=== PATIENT | male | born 1945 | race Caucasian/White ===

== ENCOUNTER 2017-12-07 12:04 | Emergency (ER) | payer MEDICARE, SELFPAY ==
[2017-12-07 12:05] VITALS: BP 149/67; PULSE 57; RESP 16; TEMP 36.4; O2SAT 97; BMI 35.9
--- NOTE | 2017-12-07 12:20 | ED.DCSUM_ITS ---
- ER Visit Summary Date of Service: 12/07/17 Chief Complaint: Nosebleed History of Present Illness: The patient is a [address] Peña. He reports that he is on Coumadin for a heart murmur and that he had an INR 2 days ago that was 1.8. Reports that he has had nasal congestion and a nonproductive cough. States that at 1030 this morning he blew his nose and began having bleeding from the right side. He placed a piece of tissue in the right side of his nose and reports blood and then started to come from the left. He denies any recent injury. He reports that he is seen Dr. Nahid Villanueva her in the past for cauterization. Physical Examination: Vitals: Stable. Afebrile. General: Well-nourished and well-developed. Head: Normocephalic atraumatic. Nose: The packing the patient had placed was removed. There is no active bleeding. I am unable to visualize a source of the bleeding. He blew his nose. I am still unable to visualize the source and there is no active bleeding. Neck: Supple, no lymphadenopathy. No JVD. Nontender. Cardiovascular: Regular rate and rhythm. No murmurs. Respiratory: No respiratory distress. Clear to auscultation bilaterally. Abdominal: Soft, nontender, nondistended, normal bowel sounds. No guarding, rebound, or peritoneal signs. Back: Nontender. Extremities: Nontender, no edema. Skin: Normal color, no rash. Neurologic: Alert and oriented ?3. Cranial nerves II through XII are intact. Normal strength and sensation. Psych: Normal affect. Test Results: INR was 1.4. Emergency Department Course and Treatment: The patient blew his nose in the emergency department. He ambulated about in the emergency department there was no bleeding with either. I did offer to pack his nose as I cannot guarantee that it will not bleed again when he gets home. He does not want to have this done. Treatment Plan: He will be discharged instructions to follow-up with Dr. Ruiz in 3-5 days for repeat exam. Return to the emergency department for any worsening symptoms. Disposition: To home in improved and stable condition. Impression: 1. Epistaxis, resolved. 2. Coumadin coagulopathy. This note was generated with [employer] software. It may contain incorrect words, spelling, and punctuation that were not noted in review of the chart prior to signing ED Disposition - Plan for ED Patient: Disposition: Home or Assisted Living Chief Complaint: Nosebleed Instructions: Nosebleed Referrals: Nahid Villanueva MD [STAFF PHYSICIAN] - 3-5 Days
[2017-12-07] MEDS: Mixture 30 ML Bottle TOPICAL (12:32)
[2017-12-07 12:57] LABS: International Normalized Ratio 1.4; Prothrombin Time (Protime)PT. 17.5 SECONDS (11.7-14.9)
[2017-12-07 14:00] VITALS: BP 142/75; PULSE 84; RESP 16; O2SAT 98
[2017-12-07 14:36] VITALS: BP 112/62; PULSE 53; RESP 18; TEMP 36.4; O2SAT 99
== END 2017-12-07 14:37 | disposition home or self-care (01) ==
PROVIDERS: Emergency Provider Emergency Medicine; Family Provider Internal Medicine; PCP Internal Medicine
DX: R04.0 Epistaxis (principal); D68.9 Coagulation defect, unspecified; I10 Essential (primary) hypertension; E78.00 Pure hypercholesterolemia, unspecified; I25.10 Atherosclerotic heart disease of native coronary artery without angina pectoris; E11.9 Type 2 diabetes mellitus without complications; M10.9 Gout, unspecified; Z95.1 Presence of aortocoronary bypass graft; Z79.01 Long term (current) use of anticoagulants
CPT/HCPCS: 36415; 85610; 99282

== ENCOUNTER 2018-08-04 15:08 | Emergency (ER) | payer MEDICARE, SELFPAY ==
[2018-08-04 15:10] VITALS: BP 157/103; PULSE 70; RESP 16; TEMP 36.7; O2SAT 95; BMI 35.9
--- NOTE | 2018-08-04 15:27 | ED.RN ---
WHEN ASKED IN TRIAGE IF HE HAS HAD THOUGHTS OF HURTING SELF HE RESPONDED YES. WITH EVERYTHING THATS GOING ON WITH BEING SICK. THOUGHTS COME OFF AND ON. WHEN ASKED IF HE HAD A PLAN HE SAID NO, I WOUND JUST SHOOT MYSELF, BUT I DONT HAVE A GUN SO I CANT DO THAT. CONSULTED WITH CHARGE NURSE ISAAC AND PT PLACED ON SI PRECAUTIONS AT THIS TIME.
[2018-08-04] MEDS: Oxymetazoline 0.05% 1 SPRAY SPRAY.BTL NASAL (16:28)
--- NOTE | 2018-08-04 16:44 | ED.DCSUM_ITS ---
- ER Visit Summary Date of Service: 08/04/18 Chief Complaint: Nosebleed History of Present Illness: The patient is a 73 M with a right-sided nosebleed. This has been an ongoing issue. It has been cauterized 3 times by ENT. He was referred to the emergency department for continued oozing. He does take Co umadin. His INR has been 2.5. No other symptoms or complaints. Physical Examination: Afebrile and vital signs unremarkable except for a blood pressure of 157/103. Patient is alert and oriented. Smiling and appropriate. HEENT exam shows dried blood and post cautery changes in his right nostril on the septal side. Airway intact. Lungs clear. Heart regular. HEENT exam o therwise unremarkable. Test Results: None performed Emergency Department Course and Treatment: Lidocaine and Afrin were applied. A rapid Rhino was placed. Patient tolerated this well. No further bleeding. He was observed in the emergency department and is not having any complications or problems. He was referred to his ENT for follow-up within 24-72 hours. He is already on amoxicillin and will continue this medication. Return for any problems. Please note that the patient did have some depressive symptoms. He had been th inking of suicide in the recent past. He has no current suicidal thoughts or plan. I asked him about the nursing documentation, and he laughed. He said he should not have said anything. He says he was blowing things out of proportion. He is not suicidal. He does not have a plan or attempt. No prior attempts. No psychiatric diagnosis. No increased alcohol consumption. He does not have a gun in his home. His sad person score was 5. I advised him that he should return right away if he has any thoughts of suicide. Otherwise he should follow-up with his primary care doctor and/or counselor. Treatment Plan: As above Disposition: Discharged Impression: 1. Epistaxis anterior right side 2. Mood disorder This note was generated with [employer] dictation software. It may contain incorrect words, spelling, and punctuation that were not noted in review of the chart prior to signing ED Disposition - Plan for ED Patient: Chief Complaint: Nosebleed Referrals: Stuart Peña MD [Primary Care Provider] -
--- NOTE | 2018-08-04 16:45 | ED.DEP ---
ED Disposition - Plan for ED Patient: Chief Complaint: Nosebleed Instructions: Nosebleed Additional Instructions: follow up with your ear nose and throat doctor in 1-3 days
== END 2018-08-04 17:10 | disposition home or self-care (01) ==
LOC: ED 15:34
PROVIDERS: Emergency Provider Emergency Medicine; Family Provider Internal Medicine; PCP Internal Medicine
DX: R04.0 Epistaxis (principal); F39 Unspecified mood [affective] disorder; F32.9 Major depressive disorder, single episode, unspecified; E11.9 Type 2 diabetes mellitus without complications; I10 Essential (primary) hypertension; E78.00 Pure hypercholesterolemia, unspecified; Z79.01 Long term (current) use of anticoagulants; Z87.891 Personal history of nicotine dependence
CPT/HCPCS: 30901; 99282

== ENCOUNTER 2019-11-23 15:28 | Emergency (ER) | payer MEDICARE, SELFPAY ==
[2019-11-23 15:31] VITALS: BP 151/90; PULSE 58; RESP 18; TEMP 36.5; O2SAT 97; BMI 35.2
[2019-11-23 15:48] VITALS: BP 142/84; PULSE 55; RESP 16; O2SAT 98
--- NOTE | 2019-11-23 15:51 | CT_ITS ---
STUDY: CT ABDOMEN AND PELVIS WITHOUT CONTRAST REASON FOR EXAM: Male, 74 years old. Left flank pain x 3 days, hx kidney stones, hypertension, diabetes. RADIATION DOSAGE (If Supplied By Facility): CTDIvol = ( 14.74 ) mGy, DLP = ( 767.47 ) mGycm TECHNIQUE: Transaxial images were obtained from the dome of the diaphragm to the symphysis pubis without oral contrast, and without intravenous contrast. Sagittal and coronal images were reconstructed. Individualized dose optimization techniques were used for this CT. COMPARISON: 10/27/2013. FINDINGS: The visualized lung bases are unremarkable. The visualized portions of the heart are within normal limits. Normal liver. Normal gallbladder and extrahepatic biliary system. Normal spleen. There are pancreatic calcifications in the distribution of the ducts consistent with chronic pancreatitis. Normal bilateral adrenal glands. There are multiple bilateral nonobstructing renal calcifications. Some of these may be associated with the vasculature. There is no evidence for obstructive uropathy or distal urinary tract. Renal calcifications measure up to 7 mm largest. A hypodensity within the midpole of the medial left kidney may represent a cyst but is incompletely characterized. Normal visualized stomach. Normal small intestine. There are multiple colonic diverticula consistent with diverticulosis. The appendix is visualized and appears normal. There is extensive atherosclerosis and tortuosity of the visualized aorta and iliac vessels.. Normal inferior vena cava. Normal retroperitoneum. Normal urinary bladder. Normal visualized prostate gland. There is a small umbilical hernia containing fat. There are diffuse degenerative changes of the visualized lumbar spine. CT/Abdomen/Pelvis without Cont IMPRESSION: Renal stones as above without evidence for obstructive uropathy. Extensive diverticulosis. Pancreatic calcifications consistent with chronic pancreatitis. Electronically Signed: Robert Tariq, at 17:48 EST Tel , Service support ,
[2019-11-23] MEDS: Morphine 4 MG/ML Syringe IV (16:04)
[2019-11-23] MEDS: 0.9% Normal Saline 1,000 ML 150 ML IV (16:04)
[2019-11-23] MEDS: Ondansetron 4 MG/2 ML Vial IV (16:04)
[2019-11-23 16:05] LABS: Absolute Lymphocyte Count 1.11 X10^3/uL (0.83-4.51); Absolute Neutrophil Count 4.3 X10^3/uL (2.0-7.7); Basophil% 1.5 % (0-1); Eosinophil# 0.44 X10^3/uL; Eosinophils% 6.7 % (0-5); Hematocrit 44.3 % (40-54); Hemoglobin 14.5 g/dL (13.0-16.5); Lymphocyte # 1.11 X10^3/ul (4.0); Mean Corp Hgb Conc 32.7 g/dL (32-36); Mean Corpuscular Hgb 31.6 pg (27.0-32.0); Mean Corpuscular Volume 96.5 fL (80-94); Mean Platelet Vol. 9.2 fl (6.2-12.0); Monocyte# 0.55 X10^3/uL; Monocyte% 8.4 % (0-10); NRBC Flagged by Analyzer 0 % (0-5); Neutrophil # 4.33 X10^3/uL (2.7-7.7); Neutrophil % 66.2 % (47-70); Platelet Count 203 K/mm3 (150-450); RBC Distribution Width CV 14.3 % (11.6-14.6); RBC Distribution Width SD 50.9 fl (35.1-43.9); Red Blood Count 4.59 M/mm3 (4.6-6.2); White Blood Count 6.5 K/mm3 (4.4-11.0)
[2019-11-23 16:13] LABS: Prothrombin Time (Protime)PT. 39.5 SECONDS (11.7-14.9)
--- NOTE | 2019-11-23 16:21 | ED.VISSUMM ---
- ER Visit Summary Date of Service: 11/23/19 Chief Complaint: [Back pain] History of Present Illness: The patient is a 74 M [presents to the emergency department complaint of left sided back pain that he said for about 3 to 4 days. Patient describes a sharp stabbing pain that is worse with certain movements. He denies any pain rating down his legs. He denies any injury to his back. Patient has had history of kidney stones and he states that he feels similar to that. He denies urinary symptoms of frequency or hematuria. Patient rates his pain a 7 out of 10 currently. Patient states that he did fall 2 weeks ago and hurt his left hip and had discomfort for a while but took ibuprofen and that seems to of resolved. Patient is on Coumadin for history of A. fib. Patient also has had prior four-vessel CABG. Patient has history of diabetes, hypertension, and high cholesterol. Patient denies recent illness. He has had no fevers.] Physical Examination: [HEENT-PERRLA, EOMI. Cranial nerves II through XII grossly intact. TMs clear. Mucous membranes moist. No adenopathy. Cardiovascular-regular rate and rhythm without murmur or ectopy Lungs-clear to auscultation, chest wall stable without crepitus or subcu emphysema Abdomen-normoactive bowel sounds, soft, nontender, no rebound or rigidity, no peritoneal signs. Back exam-there is no ecchymosis or bruising noted. I am unable to reproduce his pain with palpation of his back. He has no tenderness over the thoracic or lumbar spine. He has some mild CVA tenderness on the left. Extremities-intact ?4, normal range of motion, normal pulses, atraumatic] Test Results: [CBC with differential obtained showed a white count of 6.5, hemoglobin 14, hematocrit 44, platelets 203. INR was 4.0.] Chemistries unremarkable. Urinalysis had red blood cells in it but no other signs of infection. CT scan of the abdomen pelvis without contrast showed stones in both kidneys but no urolithiasis. Otherwise nothing acute. Emergency Department Course and Treatment: [Patient was medicated with morphine and Zofran on arrival. Patient had good pain relief with that.] Treatment Plan: [Patient will be given a prescription for few [place] for pain. Patient advised to discontinue his Coumadin for the next 2 days and have a repeat INR in 2 days.] Disposition: [Discharged home in stable condition] Impression: [Back pain Coumadin coagulopathy] This note was generated with [employer] dictation software. It may contain incorrect words, spelling, and punctuation that were not noted in review of the chart prior to signing ED Disposition - Plan for ED Patient: Referrals: Stuart Peña MD [Primary Care Provider] -
[2019-11-23 16:28] LABS: Anion Gap 4 (5-15); BUN 27 mg/dL (7-18); BUN/Creat Ratio 17.8 RATIO (10-20); Calcium,Total 8.5 mg/dL (8.5-10.1); Chloride 110 mmol/L (98-107); Creatinine, Serum 1.52 mg/dL (0.70-1.30); EST Glomerular Filtration Rate 48 mL/min (>60); Est Glom Filt Rate - Afr Amer 58 mL/min (>60); Estimated Creatinine Clearance 44.69 ml/min; Glucose 94 mg/dL (74-106); Potassium 4.7 mmol/L (3.5-5.1); Sodium Level 141 mmol/L (136-145)
[2019-11-23 16:59] VITALS: PULSE 54; RESP 16; O2SAT 88
[2019-11-23 17:38] LABS: Mucous, Urine 0 SEEN /hpf (<or=2+)
[2019-11-23 17:43] LABS: Color, Urine Amber (Yellow); Glucose, Dipstick Normal (Normal); Ketone-Dipstick Negative (Negative); Leukocyte Esterase-Dipstick 100 /ul (Negative); Nitrite-Dipstick Negative (Negative); Occult Blood-Urine 250 /ul (Negative); Protein-Dipstick 30 mg/dl (Negative); Urine Bilirubin Dipstick Negative (Negative); Urine Clarity Sl. Cloudy (Clear); Urine Urobilinogen Normal (Normal)
[2019-11-23 17:58] LABS: Amorphous Sediment 1+; Bacteria 1+ /hpf (None Seen); Red Blood Cells-Urine 50-100 SEEN /hpf (0-5); Squamous Epithelial Cells - UA 0-5 SEEN /hpf (0-5); White Blood Cells 5-10 SEEN /hpf (0-5)
--- NOTE | 2019-11-23 18:39 | ED.DEP ---
ED Disposition - Plan for ED Patient: Instructions: BACK PAIN (Acute or Chronic) Prescriptions: Hydrocodone Bitart/Apap 5-325 [Hammond 5MG-325MG] 1 tab PO Q4H PRN PRN 2 Days #10 tab PRN Reason: Pain Transmission Status: Received by [id number] Referrals: Stuart Peña MD [Primary Care Provider] - 3-5 Days Additional Instructions: STOP Coumadin for next 2 days and have a repeat level check of INR in 2 days
[2019-11-23 19:01] VITALS: BP 135/77; PULSE 72; RESP 16; O2SAT 99
== END 2019-11-23 19:02 | disposition home or self-care (01) ==
LOC: ED 16:05
PROVIDERS: Emergency Provider Emergency Medicine; PCP Internal Medicine
DX: N20.0 Calculus of kidney (principal); I48.91 Unspecified atrial fibrillation; I25.10 Atherosclerotic heart disease of native coronary artery without angina pectoris; I10 Essential (primary) hypertension; E11.9 Type 2 diabetes mellitus without complications; E78.00 Pure hypercholesterolemia, unspecified; Z87.442 Personal history of urinary calculi; Z95.1 Presence of aortocoronary bypass graft; Z79.84 Long term (current) use of oral hypoglycemic drugs; Z79.01 Long term (current) use of anticoagulants; Z79.82 Long term (current) use of aspirin
CPT/HCPCS: 74176; 80048; 81001; 85025; 85610; 96361; 96374; 96375; 99283; J7030; J2405

== ENCOUNTER 2020-08-23 11:06 | Emergency (ER) | payer MEDICARE, SELFPAY ==
[2020-08-23 11:06] VITALS: BP 134/81; PULSE 57; RESP 16; TEMP 36.3; O2SAT 97; BMI 30.8
--- NOTE | 2020-08-23 11:49 | EKG12_ITS ---
Test Reason : Blood Pressure : / mmHG Vent. Rate : 053 BPM Atrial Rate : 053 BPM P-R Int : 224 ms QRS Dur : 146 ms QT Int : 466 ms P-R-T Axes : 000 -69 026 degrees QTc Int : 437 ms Sinus bradycardia with 1st degree A-V block Left axis deviation Right bundle branch block Abnormal ECG Confirmed by LEAH PAGE, KRISTEL ([id number]), photograph editor SAHRA NEWTON ([id number]) on 08/28/2020 9:17:57 A M Referred By: ISRAEL Confirmed By:YAHIR LYNN MD
--- NOTE | 2020-08-23 11:50 | CT_ITS ---
STUDY: CT BRAIN WITHOUT CONTRAST REASON FOR EXAM: Male, 75 years old. RECURRENT FALLS, OFF BALANCE RADIATION DOSAGE (If Supplied By Facility): CTDIvol = ( 44.99 ) mGy, DLP = ( 779.24 ) mGycm TECHNIQUE: Transaxial CT imaging of the brain was performed without administration of intravenous contrast material. Individualized dose optimization techniques were used for this CT. COMPARISON: No relevant priors. FINDINGS: Normal soft tissue structures. Normal calvarium. There is mild cerebral atrophy with widening of the extra-axial spaces and ventricular dilatation. Focal encephalomalacia in the left posterior frontal parietal lobe. Normal basal ganglia and thalami. Normal brainstem. Normal cerebellum. There is no intracranial hemorrhage. There are no findings of an acute ischemic infarction. Atherosclerotic calcification of the cavernous portions of the internal carotid arteries bilaterally. Normal visualized paranasal sinuses. CT/Brain/Head without Contrast IMPRESSION: Chronic involutional changes of the brain. 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 Electronically Signed: Germain Rodriguez, at 13:04 EST , Service support ,
--- NOTE | 2020-08-23 11:53 | ED.DCSUM_ITS ---
History of Present Illness Chief Complaint: Fall Informant: Patient Narrative: Patient is a 75-year-old male with a past medical history of CAD with bypass, COPD, A. fib on Coumadin who presents to the emergency department for off- balance sensation. This is been going on for the past 2 days. He has had similar episodes like this before in the past. Typically drinks a bunch of water and then feels better. Yesterday he drank 8 bottles of water and is still feeling the same way. He did have a fall yesterday. Denies hitting his head or losing consciousness. No injury with the fall. He does feel lightheaded when moving from a sitting to standing position occasionally. He has been having an intermittent headache over the past 2 to 3 months in the occipital region. He is currently denying this. No vision changes. No weakness or loss of sensation in any extremity. Has any chest pain, shortness of breath or palpitations. No abdominal pain or nausea/vomiting. No diarrhea. He was recently treated for urinary tract infection but is no longer having any symptoms. Past Medical History - Allergies and Home Meds Allergies/Adverse Reactions: Allergies No Known Allergies Allergy (Verified 08/23/20 11:06) Primary Care Physician: Stuart Peña MD [Primary Care Provider] - 2 Days Prior records reviewed: Yes Surgical History: coronary bypass surgery Smoking Status: Former smoker Review of Systems All systems negative except as indicated General: Denies: Chills, Fever, Sweats Eyes: Denies: Visual changes - bilaterally, Diplopia ENT: Denies: Rhinorrhea, Sore throat Cardiovascular: Denies: Chest pain, Palpitations Respiratory: Denies: Dyspnea, Cough, Dyspnea on exertion Gastrointestinal: Denies: Abdominal pain, Nausea, Vomiting, Diarrhea Genitourinary: Denies: Dysuria, Hematuria, Frequency Musculoskeletal: Denies: Back pain, Extremity Pain Skin: Denies: Rash, Wounds Neurological: Reports: - - Lightheaded, off-balance. Denies: Headache, Weakness, Numbness Physical Exam Vital Signs/Narrative: Vital Signs Temp Pulse Resp BP Pulse Ox 08/23/20 11:06 97.3 F L 57 L 16 134/81 H 97 Inital Vital Signs reviewed: Yes General: Well nourished, Well developed, No Acute Distress Head: Normocephalic, Atraumatic Eyes: Perrl, EOMI ENT: Moist mucous membranes, No rhinorrhea Neck: Supple, Nontender Cardiovascular: Regular rate, Regular rhythm, No murmurs Respiratory: No distress, CTA bilaterally, Chest nontender Abdomen: Soft, Nontender, Nondistended, Normal bowel sounds Back: Nontender, Normal Inspection Extremities: Nontender, No edema. Negative for: Calf Tenderness Skin: Normal color, No rash Neurological: Alert, Oriented x3, Cranial nerves II-XII grossly intact, Normal Strength, Normal Sensation Psychological: Normal affect, Normal Mood Diagnostic/Tx/Re-eval Chest X-Ray - ED: - - Single view chest x-ray did not reveal any evidence of consolidation. Normal cardiac silhouette. Previous CABG. Agree with radiologist. - EKG Initial EKG Interpretation: - - Rate of 53 bpm and a sinus bradycardia. He has a prolonged MO interval of 224 with first-degree AV block. QRS of 146 with right bundle br anch block. He has left axis deviation. No significant ST elevations or depressions otherwise. No previous EKG for comparison. - Medical Decision Making Patient presents to the emergency department for off-balance sensation and falling. Upon arrival to the emergency department vital signs within normal limits. He does not appear in any acute distress. He has no focal deficits on physical exam. Will check basic lab work and CT scan of the head. 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 No acute intracranial abnormality. Patient symptoms are only when ambulating and does not occur every time. I do not believe that this is a posterior stroke causing the symptoms given the fact he has no symptoms while at rest. The rest of his lab work did not reveal any significant acute abnormality. Patient did ambulate around the emergency department. I discussed obtaining a MRI to evaluate for posterior circulation stroke although this is less likely. Patient does want to be discharged home. We will call his PCP in the morning to be reevaluated. If he develops any worsening symptoms he is to return to the emergency department. He understands and is agreeable this plan. Discharged home in stable condition. All questions answered. ED Disposition - Plan for ED Patient: Disposition: Home or Assisted Living Diagnosis: Imbalance, Fall Instructions: ED Fall Dizziness Weakn Balance Referrals: Stuart Peña MD [Primary Care Provider] - 2 Days
[2020-08-23 12:09] VITALS: PULSE 54; RESP 16; O2SAT 96
[2020-08-23 12:21] LABS: Absolute Lymphocyte Count 0.86 X10^3/uL (0.83-4.51); Absolute Neutrophil Count 4.5 X10^3/uL (2.0-7.7); Basophil# 0.09 X10^3/uL; Basophil% 1.5 % (0-1); Eosinophil# 0.22 X10^3/uL; Eosinophils% 3.7 % (0-5); Lymphocyte # 0.86 X10^3/ul (4.0); Lymphocyte % 14.3 % (19-41); Mean Corp Hgb Conc 33.3 g/dL (32-36); Mean Corpuscular Hgb 31.8 pg (27.0-32.0); Mean Corpuscular Volume 95.5 fL (80-94); Mean Platelet Vol. 9.8 fl (6.2-12.0); Monocyte# 0.39 X10^3/uL; Monocyte% 6.5 % (0-10); NRBC Flagged by Analyzer 0 % (0-5); Neutrophil # 4.45 X10^3/uL (2.7-7.7); Neutrophil % 73.8 % (47-70); Platelet Count 199 K/mm3 (150-450); RBC Distribution Width CV 14.5 % (11.6-14.6); RBC Distribution Width SD 50.9 fl (35.1-43.9); Red Blood Count 4.71 M/mm3 (4.6-6.2)
[2020-08-23 12:33] LABS: International Normalized Ratio 2.4; Prothrombin Time (Protime)PT. 25.6 SECONDS (11.7-14.9)
[2020-08-23 12:36] LABS: Anion Gap 2 (5-15); BUN 15 mg/dL (7-18); BUN/Creat Ratio 12.8 RATIO (10-20); Calcium,Total 8.4 mg/dL (8.5-10.1); Chloride 108 mmol/L (98-107); Creatinine, Serum 1.17 mg/dL (0.70-1.30); EST Glomerular Filtration Rate 65 mL/min (>60); Est Glom Filt Rate - Afr Amer 78 mL/min (>60); Estimated Creatinine Clearance 57.19 ml/min; Glucose 120 mg/dL (74-106); Magnesium 1.8 mg/dL (1.6-2.6); Potassium 4.1 mmol/L (3.5-5.1); Sodium Level 138 mmol/L (136-145)
--- NOTE | 2020-08-23 13:00 | RAD_ITS ---
STUDY: X-RAY CHEST REASON FOR EXAM: Male, 75 years old. Pt states being unbalanced x 2 days, fell yesterday, weakness TECHNIQUE: Single AP portable view of the chest. COMPARISON: None. FINDINGS: EKG electrodes are seen. Minimal increased linear markings at the left lung base suggestive of left basilar atelectasis and/or scarring. There is no demonstrated pleural abnormality. Sternal cerclage wires and vascular clips are present from a prior sternotomy and coronary artery bypass graft procedure (CABG). Normal mediastinum and zach. Normal visualized pulmonary arteries. Normal visualized aortic arch and descending thoracic aorta. Normal visualized thoracic spine. Normal visualized ribs, clavicles, and shoulders. There is no demonstrated abnormality of the visualized soft tissue structures of the upper abdomen. RAD/Chest 1 View (Portable) IMPRESSION: Prior CABG. Mild increased linear markings at the left lung base suggestive of linear atelectasis and/or linear scarring. Electronically Signed: Germain Rodriguez, at 13:23 EST , Service support ,
[2020-08-23 13:50] VITALS: BP 113/70; BP 113/76; BP 114/90; PULSE 54; PULSE 67; PULSE 68
[2020-08-23 14:00] VITALS: BP 104/71; PULSE 53; RESP 10; O2SAT 96
[2020-08-23 14:29] VITALS: BP 104/71; PULSE 61; RESP 18; O2SAT 97
== END 2020-08-23 14:45 | disposition home or self-care (01) ==
PROVIDERS: Emergency Provider Emergency Medicine; PCP Internal Medicine
DX: R26.89 Other abnormalities of gait and mobility (principal); R29.6 Repeated falls; I25.10 Atherosclerotic heart disease of native coronary artery without angina pectoris; I44.0 Atrioventricular block, first degree; I45.10 Unspecified right bundle-branch block; I48.91 Unspecified atrial fibrillation; J44.9 Chronic obstructive pulmonary disease, unspecified; Z79.01 Long term (current) use of anticoagulants; Z95.1 Presence of aortocoronary bypass graft; Z87.440 Personal history of urinary (tract) infections
CPT/HCPCS: 70450; 71045; 80048; 83735; 84484; 85025; 85610; 93005; 99285; A4216

== ENCOUNTER 2020-12-04 10:43 | Outpatient (RCR) | payer MEDICARE, SELFPAY | END 2020-12-04 23:59 | LOC: IMMUN 10:43 | PROVIDERS: PCP Internal Medicine; Visit Provider Family Medicine | DX: Z23 Encounter for immunization (principal) | CPT/HCPCS: 0011A; 0012A ==

== ENCOUNTER 2023-02-12 03:52 | Emergency (ER) | payer MEDICARE, SELFPAY ==
[2023-02-12 03:52] VITALS: BP 101/70; PULSE 83; RESP 35; O2SAT 94
[2023-02-12 03:53] VITALS: BP 129/91; PULSE 68; RESP 16; TEMP 35.9; O2SAT 98; BMI 29.7
--- NOTE | 2023-02-12 04:09 | CT_ITS ---
EXAM: CT ANGIOGRAPHY CHEST, ABDOMEN AND PELVIS WITH INTRAVENOUS CONTRAST CLINICAL INDICATION: None provided. pain ? Dissection TECHNIQUE: Helically acquired angiography images were obtained of the chest, abdomen and pelvis with intravenous contrast. CTDIvol = ( 13.87 ) mGy, DLP = ( 1217.31 ) mGycm This CT exam was performed using one or more of the following dose reduction techniques: automated exposure control, adjustment of the mA and/or kV according to patient size, and/or use of iterative reconstruction technique. MIP reconstructed images were created and reviewed. CONTRAST: IV 100mL [id number] COMPARISON: November 23, 2019 CT. FINDINGS: VASCULATURE: AORTA: No acute findings. Normal in caliber. No dissection. PULMONARY ARTERIES: Unremarkable. Normal in caliber. No obvious central pulmonary embolism although this study was not performed with the pulmonary embolism protocol. No PE. GREAT VESSELS OF AORTIC ARCH: Unremarkable. Normal in caliber. No dissection. CELIAC TRUNK AND MESENTERIC ARTERIES: No acute findings. No occlusion or significant stenosis. No dissection. RENAL ARTERIES: No acute findings. No occlusion or significant stenosis. No dissection. ILIAC ARTERIES: No acute findings. No occlusion or significant stenosis. No dissection. CHEST: LUNGS AND PLEURAL SPACES: See below. HEART: No aneurysm or dissection. Multivessel calcific coronary arteriolosclerosis status post CABG. Heart size is normal. No pericardial effusion. MEDIASTINUM: Unremarkable. No mediastinal or hilar adenopathy. Esophagus is unremarkable. No hiatal hernia. No other cardiomediastinal or hilar abnormalities. THYROID: Unremarkable. No thyroid lesions. ABDOMEN: LIVER: See below. GALLBLADDER AND BILE DUCTS: Somewhat contracted gallbladder. No calcified gallstones. No gallbladder distention or wall edema. No intra- or extrahepatic biliary ductal dilation. PANCREAS: Calcifications of the pancreas suggest chronic pancreatitis. Dilatation of main pancreatic duct with no definite pancreatic head mass. SPLEEN: Unremarkable. Normal size without focal cystic or solid mass. ADRENALS: Unremarkable. No nodules. KIDNEYS AND URETERS: Multiple right and left renal calyceal calculi which are nonobstructing, largest at the lower pole level posteriorly measuring up to 1.2 cm. Left renal small cysts. No other abnormalities. STOMACH AND BOWEL: Duodenal wall thickening and distal stomach wall thickening with adjacent inflammation. Midline epigastric region abdominal wall hernia containing pneumoperitoneum without bowel herniation. PELVIS: APPENDIX: No evidence of acute appendicitis. BLADDER: Bladder is unremarkable although decompressed in appearance. REPRODUCTIVE: Unremarkable as visualized. No mass. CHEST, ABDOMEN and PELVIS: INTRAPERITONEAL SPACE: Pneumoperitoneum anteriorly. Small volume perihepatic ascites at the right lateral aspect. No free air or free fluid. No aortic aneurysm. BONES/JOINTS: Degenerative changes of the spine and pelvis. No suspicious lytic or blastic abnormality. SOFT TISSUES: Small fat-containing bilateral inguinal hernias containing fat. Moderate anasarca. LYMPH NODES: Unremarkable. No enlarged lymph nodes. CT/CTA Chst, Abd, Pel W and/or WO IMPRESSION: 1. Pneumoperitoneum. This is concerning for viscus rupture such as can be seen with peptic ulcer disease, gastritis or duodenitis as there is inflammation and wall thickening in these areas. 2. No PE, aortic dissection or pneumonia. Dr. Bill Farfan was notified at 1:50 AM [place] time on 02/12/2023. N.B. : The above Results were Read Back by Bill Olivera MD to Bill Farfan DO, and understanding confirmed on 02/12/2023 04:49:39 (ET). Electronically Signed: Bill Olivera MD at 4:54 EDT ,
--- NOTE | 2023-02-12 04:11 | EKG12_ITS ---
Test Reason : ABD PAIN Blood Pressure : / mmHG Vent. Rate : 067 BPM Atrial Rate : 066 BPM P-R Int : 000 ms QRS Dur : 150 ms QT Int : 446 ms P-R-T Axes : 000 -75 031 degrees QTc Int : 471 ms Sinus rhythm Right bundle branch block Left anterior fascicular block Bifascicular block Abnormal ECG Confirmed by LEAH PAGE, KRISTEL ([id number]), editor dictionary SAHRA NEWTON ([id number]) on 02/12/2023 1:01:06 PM Referred By: INEZ Confirmed By:YAHIR LYNN MD
[2023-02-12 04:19] LABS: Absolute Neutrophil Count 6.8 X10^3/uL (2.0-7.7); Basophil# 0.08 X10^3/uL; Basophil% 0.9 % (0-1); Eosinophil# 0.58 X10^3/uL; Eosinophils% 6.5 % (0-5); Hematocrit 46.2 % (40-54); Hemoglobin 14.9 g/dL (13.0-16.5); Lymphocyte % 12.2 % (19-41); Mean Corp Hgb Conc 32.3 g/dL (32-36); Mean Corpuscular Hgb 31.4 pg (27.0-32.0); Mean Corpuscular Volume 97.3 fL (80-94); Mean Platelet Vol. 9.6 fl (6.2-12.0); Monocyte# 0.44 X10^3/uL; Monocyte% 4.9 % (0-10); NRBC Flagged by Analyzer 0 % (0-5); Neutrophil # 6.75 X10^3/uL (2.7-7.7); Neutrophil % 75.1 % (47-70); Platelet Count 327 K/mm3 (150-450); RBC Distribution Width SD 50.5 fl (35.1-43.9); Red Blood Count 4.75 M/mm3 (4.6-6.2)
[2023-02-12 04:28] LABS: Prothrombin Time (Protime)PT. 13.1 SECONDS (11.7-14.9)
[2023-02-12 04:32] VITALS: BP 117/82; PULSE 79; RESP 38; O2SAT 94
[2023-02-12 04:38] LABS: AST(SGOT) 24 U/L (15-37); Alanine Aminotransfer ALT/SGPT 30 U/L (16-61); Alkaline Phosphatase 64 U/L (45-117); Anion Gap 9 (5-15); BUN 18 mg/dL (7-18); BUN/Creat Ratio 14.1 RATIO (10-20); Bilirubin, Direct 0.22 mg/dL (0.00-0.30); Calcium,Total 8.9 mg/dL (8.5-10.1); Chloride 108 mmol/L (98-107); Creatinine, Serum 1.28 mg/dL (0.70-1.30); EST Glomerular Filtration Rate 58 mL/min (>60); Est Glom Filt Rate - Afr Amer 70 mL/min (>60); Globulin 4.2 g/dL (2.2-4.2); Glucose 59 mg/dL (74-106); Lipase 17 U/L (13-75); Magnesium 1.6 mg/dL (1.6-2.6); Potassium 3.8 mmol/L (3.5-5.1); Protein, Total 7.2 g/dL (6.4-8.2); Sodium Level 140 mmol/L (136-145); Troponin-I HS 9 pg/mL (3.0-78.0)
[2023-02-12] MEDS: 0.9% Normal Saline 1,000 ML 999 ML IV (04:42)
[2023-02-12] MEDS: Ondansetron 4 MG/2 ML Vial IV (04:42)
[2023-02-12] MEDS: fentaNYL 100 MCG/2 ML Ampul 50 MCG IV (04:44)
[2023-02-12] MEDS: HYDROmorphone 1 MG/ML Syringe IV (05:28)
--- NOTE | 2023-02-12 05:30 | ED.RN ---
Addendum entered by Audelia Mackenzie 02/12/23 06:29: [facility] HAS ACCEPTED FOR SURGERY. ETA [facility] 0630. Original Note: [facility] TRANSFER HAS AN EXTENSIVE WAIT FOR MAIN, 2-3 DAYS WAIT FOR REGIONAL FACILITIES. [facility] HAS NO SURGICAL BEDS. [facility] ONLY ACCEPTING TRAUMA, STROKES AND STEMIS. CALLED , WAITING FOR A CALLBACK.
--- NOTE | 2023-02-12 05:43 | RAD_ITS ---
INDICATION: NG tube placement -- KUB with both diaphragms for NG/OG Verification EXAMINATION/TECHNIQUE: X-RAY - XR Abdomen 1 View COMPARISON: FINDINGS: NG tube is seen its tip is within the gastric lumen. BOWEL GAS PATTERN: Non-obstructive. No bowel or stomach distention. FREE AIR: Not assessed on a single supine view. ORGANOMEGALY: Not seen. CALCIFICATIONS: No abnormal calcifications observed. LOWER CHEST: No acute pathology. BONES AND SOFT TISSUES: No acute pathology. RAD/Abdomen Single View (Portable) IMPRESSION: Non-obstructive bowel gas pattern. Electronically Signed: Vivian Barcenas MD at 6:37 EDT ,
--- NOTE | 2023-02-12 05:48 | EX.ED.DYSGE1 ---
HPI History of Present Illness Chief Complaint: Abd Pain Narrative Narrative: Patient is a 77-year-old male from home with past medical history of hypertension hyperlipidemia gout CAD and CHF/peripheral edema who states that he was sitting around watching TV roughly 1 hour prior to arrival when he got sudden onset midepigastric abdominal pain. He states has been no trauma or recent excessive activity. He denies any history of kidney stones. He reports the pain is severe and he cannot get comfortable and secondary to the persistent nature of the pain comes in for evaluation [facility] Home Medications allopurinol 100 mg tablet 200 mg PO DAILYCM 10/27/13 [History Last Taken 11/23/19] aspirin 81 mg chewable tablet 81 mg PO DAILY 10/27/13 [History Last Taken 11/23/19] atenolol 25 mg tablet 50 mg PO DAILY 10/27/13 [History Last Taken 11/23/19] fish oil-dha-epa 1,200 mg-144 mg-216 mg capsule 1,200 ea PO BID 10/27/13 [History Last Taken 11/23/19] metformin 850 mg tablet 1,000 mg PO BIDCM 10/27/13 [History Last Taken 11/23/19] simvastatin 20 mg tablet 40 mg PO QHS 10/27/13 [History Last Taken Unknown] fluticasone furoate 100 mcg-vilanterol 25 mcg/dose inhalation powder 1 puff IH DAILY 11/23/19 [History Last Taken 11/23/19] lisinopril 2.5 mg tablet 2.5 mg PO DAILY 11/23/19 [History Last Taken 11/23/19] glimepiride 2 mg tablet 2 mg PO DAILY 08/23/20 [History Last Taken Unknown] Allergy/AdvReac Type Severity Reaction Status Date / Time No Known Allergies Allergy Verified 08/23/20 11:06 Social History Smoking Status: Unknown if ever smoked ROS ROS ED Constitutional Constitutional ED: Denies chills or fever(s) ENT ENT ED: Denies sore throat Cardiovascular Cardiovascular: Reports chest pain Respiratory/Chest Respiratory/Chest: Denies cough or dyspnea Gastrointestinal Gastrointestinal: Reports abdominal pain and nausea; Denies diarrhea or vomiting Genitourinary Genitourinary ED: Denies dysuria Musculoskeletal Musculoskeletal: Denies back pain or myalgias Integumentary Denies rash Neurologic Neurologic: Denies headache(s) Hematologic/Lymphatic Hematologic/Lymphatic: Reports easy bleeding and easy bruising EXAM Physical Exam Const Vital Signs: 02/12/23 03:53 02/12/23 03:52 02/12/23 04:32 Temperature 96.7 F L Temperature Source Temporal Pulse Rate 68 83 79 Respiratory Rate 16 35 H 38 H Respiratory Effort Blood Pressure 129/91 H 101/70 117/82 H Blood Pressure Mean 103 80 93 Pulse Ox 98 94 94 Oxygen Delivery Method Room Air Room Air Room Air 02/12/23 04:34 Temperature Temperature Source Pulse Rate Respiratory Rate Respiratory Effort Labored Accessory Muscle Use Blood Pressure Blood Pressure Mean Pulse Ox Oxygen Delivery Method Positive well nourished, well developed and obese General Appearance ED: well developed Nutritional Appearance: obese HEENT Reports moist mucous membranes Eyes PERRL and EOMs intact bilaterally Neck supple Chest Wall palpation of chest normal Resp clear to auscultation bilaterally Resp Narrative: Patient is tachypneic with diminished breath sounds throughout but overall clear to auscultation Cardio regular rate and regular rhythm Rate: other Other Details: Radial pulses are plus 2 out of 4 bilaterally are equal and symmetric GI non-distended GI Narrative: Patient has a reducible ventral hernia present but there is pain with palpation and guarding at the site. No rigidity or tympany noted Auscultation: normoactive bowel sounds Palpation: soft Back/Spine no CVA tenderness Extremity Extremity Narrative: +3 pitting edema to the bilateral lower extremities that is equal and symmetric Neuro oriented x3 and CN's II-XII intact bilaterally Sensorium / Orientation: alert Psych Psych Narrative: Patient has a flat affect Skin Skin Narrative: Chronic stasis changes of the bilateral lower legs MDM MDM MDM Narrative Medical decision making narrative: Patient presented to the ER afebrile but reported sudden onset severe pain which is now beginning to radiate. He appeared pale and ashen and with the sudden onset of pain and now the radiation there is concern for dissection versus kidney stone versus perforated viscus or acute pancreatitis so basic labs and a CTA were ordered. Labs revealed no clinically significant findings but CTA showed free air consistent with a perforated viscus. Secondary to this the patient was started on Zosyn and Diflucan and Protonix. The case was discussed with general surgery/Dr. Dennis who feel that the patient needs to go to a higher level of care based on his chronic medical conditions and location of the perforation. Secondary to this was contacted and he was accepted at [facility] by Dr. Rivas. He requested NG tube be placed prior to transport and does agree to accept the patient for surgical intervention at this time. The plan of care was discussed with the patient and he is agreeable to it History & Record Review Discussion w/independent historian: EMS personnel and Patient Lab Data Attestation: I reviewed the patient's lab results. Labs: Laboratory Results - last 24 hr 02/12/23 02/12/23 02/12/23 04:15 04:15 04:15 WBC 9.0 RBC 4.75 Hgb 14.9 Hct 46.2 MCV 97.3 H MCH 31.4 MCHC 32.3 RDW Std Deviation 50.5 H RDW Coeff of Elida 14.0 Plt Count 327 MPV 9.6 Immature Gran % (Auto) 0.400 Neut % (Auto) 75.1 H Lymph % (Auto) 12.2 L [place] % (Auto) 4.9 Eos % (Auto) 6.5 H Baso % (Auto) 0.9 Absolute Neuts (auto) 6.8 Absolute Lymphs (auto) 1.10 Nucleated RBC % 0 PT 13.1 INR 1.0 APTT 27.0 Sodium 140 Potassium 3.8 Chloride 108 H Carbon Dioxide 23.0 Anion Gap 9 BUN 18 Creatinine 1.28 Estim Creat Clear Calc 49.10 Est GFR (MDRD) Af Amer 70 Est GFR (MDRD) Non-Af 58 L BUN/Creatinine Ratio 14.1 Glucose 59 L Calcium 8.9 Magnesium 1.6 Total Bilirubin 0.50 Direct Bilirubin 0.22 AST 24 ALT 30 Alkaline Phosphatase 64 Troponin I High Sens 9 Total Protein 7.2 Albumin 3.0 L Globulin 4.2 Lipase 17 Radiography Diagnostic Testing: Clinical Impression(s) from Imaging Studies Chest/Abdomen/Pelvis CTA 02/12/23 04:09 IMPRESSION: 1. Pneumoperitoneum. This is concerning for viscus rupture such as can be seen with peptic ulcer disease, gastritis or duodenitis as there is inflammation and wall thickening in these areas. 2. No PE, aortic dissection or pneumonia. Dr. Bill Farfan was notified at 1:50 AM [place] time on 02/12/2023. N.B. : The above Results were Read Back by Bill Olivera MD to Bill Farfan DO, and understanding confirmed on 02/12/2023 04:49:39 (ET). Electronically Signed: Bill Olivera MD at 4:54 EDT , ADDENDUM: 02/12/23 0501 IMPRESSION: 1. Pneumoperitoneum. This is concerning for viscus rupture such as can be seen with peptic ulcer disease, gastritis or duodenitis as there is inflammation and wall thickening in these areas. 2. No PE, aortic dissection or pneumonia. Dr. Bill Farfan was notified at 1:50 AM [place] time on 02/12/2023. N.B. : The above Results were Read Back by Bill Olivera MD to Bill Farfan DO, and understanding confirmed on 02/12/2023 04:49:39 (ET). Electronically Signed: Bill Olivera MD at 4:54 EDT , KUB as interpreted by the emergency medicine physician reveals the NG tube to be in proper position nonspecific nonobstructive bowel gas pattern Management Discussion w/another healthcare provider: [employer] Discharge Plan Triage Chief Complaint: Abd Pain ED Provider: Bill Farfan Dx/Rx/DC Orders Clinical Impression: Perforated duodenal ulcer, Hyperlipidemia, CAD (coronary artery disease) Prescriptions: No Action metformin 850 MG tablet 1,000 mg PO BIDCM atenolol 25 MG tablet 50 mg PO DAILY allopurinol 100 MG tablet 200 mg PO DAILYCM simvastatin 20 MG tablet 40 mg PO QHS aspirin 81 MG tablet,chewable 81 mg PO DAILY fish oil-dha-epa 1 EACH capsule 1,200 ea PO BID lisinopril 2.5 MG tablet 2.5 mg PO DAILY fluticasone furoate-vilanterol 100-25 mcg/dose blister with device 1 puff IH DAILY PRN (Reason: nasel congeestion) glimepiride 2 MG tablet 3 mg PO DAILY Primary Care Provider: Stuart ePña Referrals: Stuart Peña MD [Primary Care Provider] - Disposition Disposition: Acute Care Hospital Discharge Location: [facility]
[2023-02-12] MEDS: Oxymetazoline 0.05% 1 SPRAY SPRAY.BTL 2 SPRAY NASAL (06:10)
[2023-02-12 06:33] VITALS: BP 98/60; BP 99/54; PULSE 70; PULSE 72; RESP 22; RESP 25; O2SAT 93; O2SAT 96
[2023-02-12] MEDS: HYDROmorphone 0.5 MG/0.5 ML SYRINGE IV (06:48)
== END 2023-02-12 07:06 | disposition short-term general hospital (02) ==
PROVIDERS: Emergency Provider Emergency Medicine; PCP Internal Medicine; Visit Provider Emergency Medicine
DX: K26.5 Chronic or unspecified duodenal ulcer with perforation (principal); I25.10 Atherosclerotic heart disease of native coronary artery without angina pectoris; R10.13 Epigastric pain; E78.5 Hyperlipidemia, unspecified; Z79.82 Long term (current) use of aspirin; E66.9 Obesity, unspecified; I10 Essential (primary) hypertension; M10.9 Gout, unspecified
CPT/HCPCS: 71275; 74018; 74174; 80048; 80076; 83690; 83735; 84484; 85025; 85610; 85730; 87811; 93005; 99285; J7030; Q9967; A4216; J2405; J3490

== ENCOUNTER 2024-09-17 13:46 | Inpatient (IN) | payer MEDICARE, SELFPAY ==
[2024-09-17] VITALS (20 sets, daily range): BP systolic 79–112; BP diastolic 55–75; PULSE 59–89; RESP 10–22; TEMP 35.6–36.5; O2SAT 90–98; BMI 29.9; BMI 27.6
--- NOTE | 2024-09-17 14:03 | EKG12_ITS ---
Test Reason : WEAKNESS Blood Pressure : */* mmHG Vent. Rate : 62 BPM Atrial Rate : 62 BPM P-R Int : 154 ms QRS Dur : 146 ms QT Int : 448 ms P-R-T Axes : -59 -34 41 degrees QTcB Int : 454 ms Unusual P axis, possible ectopic atrial rhythm Left axis deviation Right bundle branch block Abnormal ECG Confirmed by LEAH PAGE, KRISTEL ([id number]), art editor SAHRA NEWTON ([id number]) on 09/22/2024 1:33:11 P M Referred By: Brandyn La Confirmed By: KRISTEL LYNN MD
--- NOTE | 2024-09-17 14:11 | EX.ED.DYSGE1 ---
HPI History of Present Illness Chief Complaint: Weakness Detail of Chief Complaint: Patient not able to care for himself in house is not livable per EMS Informant: patient and EMS Limited: other (Patient is a poor informant.) Onset/Context/Timing Onset: Days Context: Gradual Onset Timing: Continuous Quality: Not feeling well, decreased p.o. intake presents from home after well check Location: Multisystem Current Severity: Patient is hypotensive and bradycardic. Unable to determine Worsened by: Patient endorses poor p.o. intake both liquids and solids Relieved by: Nothing Associated Symptoms Associated Symptoms: Lightheadedness Narrative Narrative: Patient is a 79-year-old awake and oriented gentleman who presents by ambulance after a well check since no one in the family has heard from him for 2 weeks. He has history of gout, type 2 diabetes not on insulin, hypercholesterolemia and hypertension. He has had poor intake. He does endorse cough. Cough is productive of clear sputum. He denies fever or chills. He states he feels cold. He denies headache, visual, ocular auditory symptoms. No trouble with speech or swallowing. He denies chest discomfort. He does endorse cough and slight shortness of breath. He denies abdominal pain, nausea, vomiting or diarrhea. Denies black or maroon-colored stool. He does have a history of reflux. He was prescribed omeprazole, which she has not been taking. He denies dysuria, frequency, urgency or hematuria. He denies decrease in urine output or increase in urine output. He has not checked his blood sugar recently. Prior similar symptoms: No Recent Illness/Hospitalization: No [facility] Medical History (Updated 09/17/24 @ 15:[address] 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, right shoulder Right shoulder pain Home Medications ?Medication ?Instructions ?Recorded ?Last Taken ?Type aspirin 81 mg chewable tablet 81 mg PO DAILY 10/27/13 11/23/19 History fish oil-dha-epa 1,200 mg-144 1,200 ea PO BID 10/27/13 11/23/19 History mg-216 mg capsule metformin 850 mg tablet 1,000 mg PO BIDCM 10/27/13 11/23/19 History simvastatin 20 mg tablet 40 mg PO QHS 10/27/13 Unknown History fluticasone furoate 100 1 puff IH DAILY PRN nasel 02/18/20 02/18/20 History mcg-vilanterol 25 mcg/dose congeestion inhalation powder lisinopril 2.5 mg tablet 2.5 mg PO DAILY 11/23/19 11/23/19 History allopurinol 300 mg tablet mg PO 10/23/23 Unknown History atenolol 50 mg tablet 50 mg PO 10/23/23 Unknown History furosemide 20 mg tablet mg PO 10/23/23 Unknown History glimepiride 2 mg tablet 2 mg PO DAILY 10/23/23 Unknown History mupirocin 2 % topical ointment topical 10/23/23 Unknown History omeprazole 40 mg capsule,delayed mg PO 10/23/23 Unknown History release Allergy/AdvReac Type Severity Reaction Status Date / Time No Known Allergies Allergy Verified 09/17/24 13:51 Surgical History History of heart bypass surgery Social History household members: none Smoking Status: Former smoker alcohol intake: former ROS ROS ED Constitutional Constitutional ED: Reports weight loss; Denies chills, fever(s), subjective or sweats Eyes Eyes: Denies blurry vision or change in vision ENT ENT ED: Denies ear pain, rhinorrhea or sore throat Cardiovascular Cardiovascular: Denies chest pain, orthopnea, palpitations, paroxysmal nocturnal dyspnea or racing heartbeat Respiratory/Chest Respiratory/Chest: Reports cough, dyspnea and sputum; Denies orthopnea or paroxysmal nocturnal dyspnea Gastrointestinal Gastrointestinal: Denies abdominal pain, diarrhea, melena, nausea or vomiting Genitourinary Genitourinary ED: Denies dysuria, hematuria or urinary frequency Musculoskeletal Musculoskeletal: Denies arthralgias, back pain or myalgias Integumentary Reports other Details: Wounds right and left leg. There are dressings on that have not been changed in some time. Neurologic Neurologic: Reports weakness; Denies headache(s) Endocrine Endocrinology: Denies cold intolerance or heat intolerance Hematologic/Lymphatic Hematologic/Lymphatic: Reports systems reviewed and no addt'l complaints, except as documented EXAM Physical Exam Const Vital Signs: 09/17/24 13:48 09/17/24 13:51 09/17/24 14:45 Temperature 97.7 F L 96.4 F L Temperature Source Oral Core Pulse Rate 59 L 62 Respiratory Rate 18 14 Respiratory Effort Normal Non-Labored Respiratory Pattern Normal Blood Pressure 79/57 L 87/59 L Blood Pressure Mean 64 68 Pulse Ox 95 96 Oxygen Delivery Method Room Air Room Air 09/17/24 15:30 Temperature 96.9 F L Temperature Source Core Pulse Rate 67 Respiratory Rate 15 Respiratory Effort Respiratory Pattern Blood Pressure 103/62 Blood Pressure Mean 75 Pulse Ox 98 Oxygen Delivery Method Room Air Positive well nourished and well developed Constitutional Narrative: Patient does not appear well. His eyes are sunken. Mucosas dry. He has marked edema of his lower extremities. Will unwrap dressing. General Appearance ED: well developed and pallor HEENT Reports dry mucous membranes HEENT Narrative: Ears normal. Nares patent. Posterior pharynx is normal. Mouth ED: Yes dry mucous membranes Mouth: dry mucous membranes Eyes PERRL and EOMs intact bilaterally General Eye ED: Yes pale conjunctiva; Negative for scleral icterus Neck no lymphadenopathy, supple and no JVD Resp normal respiratory effort and clear to auscultation bilaterally Auscultation: rales right lower Cardio regular rate, regular rhythm, S1 normal heart sound, S2 normal heart sound and no murmurs GI normal to inspection, nondistended, normoactive bowel sounds, non-tender, non-distended and no masses; Negative for hepatosplenomegaly Back/Spine no CVA tenderness Extremity Negative for normal to inspection Extremity Narrative: Dressings were removed. The wounds that are noted are not infected. There is no erythema, warmth, induration. There is pitting edema. There is serous drainage noted. Neuro oriented x3 and CN's II-XII intact bilaterally Sensorium / Orientation: alert Psych Mood & Affect: depressed Skin No no wounds and No skin turgor normal General Skin Exam: pallor; Negative for elasticity normal or jaundice Sepsis Attestation Sepsis Alert: Yes Sepsis Attestation: Agree w/Sepsis Date exam was performed: 09/17/24 Time exam was performed: 14:52 Possible Source of Sepsis: Genitourinary Sepsis Organ Dysfunction Criteria Present: SBP < 90 mmHg or MAP < 65 mmHg and Lactic Acid > 2 mmol/L Fluid Resuscitation Fluid resuscitation indicated?: Yes Amount of fluid ordered: 2,760 Sepsis Note Date exam was performed: 09/17/24 Time exam was performed: 15:41 Sepsis Attestation: Sepsis re-evaluation was performed Response to fluids: Fluid responsive hypotension MDM MDM MDM Narrative Medical decision making narrative: Patient is hypotensive this can be due to multiple causes. This could be due to hypovolemia in light of poor p.o. intake, sepsis, cardiac etiology, doubt large pulmonary embolus since he is not tachycardic or hypoxic. Since he has pale conjunctive and appears pale this may be due to GI bleed. Workup included EKG, chest x-ray appropriate blood work to assess for endorgan dysfunction as well as lactate and coags. 1 L of normal saline was ordered. There is no history of heart failure that I was able to ascertain. History & Record Review Additional record(s) reviewed:: Prior inpatient record (There are no inpatient records.), Prior outpatient record (Images from outside facility revealed degenerative changes of the right shoulder. X-ray was taken because of chronic shoulder pain. There is no comment regarding prosthesis.), Prior ED visit (Most recent ER visit was February 2023 for midepigastric abdominal pain. His workup was negative for cardiac etiology.) and Prior labs Lab Data Attestation: I reviewed the patient's lab results. Lab results narrative: White count is elevated with shift. There is no bandemia. H&H is 11.2 and 34.4 with normal indices. Most recent H&H was February 12 and was 14.9 and 46.2. Comprehensive metabolic panel does not elevated BUN/creatinine are 33 and 1.59 with an estimated BUN/creatinine ratio of 21:1. Estimated GFR is 45. His creatinine is slightly elevated compared to prior. AST is slightly rate 63. This is nondiagnostic. Sodium is slightly below normal at 134. Albumin is low at 2.9. Calcium is normal. Lactate is elevated 2.7. Labs: Laboratory Results - last 24 hr 09/17/24 09/17/24 14:00 14:33 WBC 12.2 H RBC 3.66 L Hgb 11.2 L Hct 34.4 L MCV 94.0 MCH 30.6 MCHC 32.6 RDW Std Deviation 47.8 H RDW Coeff of Elida 13.9 Plt Count 277 MPV 9.8 Immature Gran % (Auto) 0.700 Neut % (Auto) 84.0 H Lymph % (Auto) 6.7 L [place] % (Auto) 6.7 Eos % (Auto) 1.1 Baso % (Auto) 0.8 Absolute Neuts (auto) 10.2 H Absolute Lymphs (auto) 0.82 L Nucleated RBC % 0 PT 16.3 H INR 1.3 APTT 31.5 Sodium 134 L Potassium 4.3 Chloride 98 Carbon Dioxide 29.0 Anion Gap 7 BUN 33 H Creatinine 1.59 H Estim Creat Clear Calc 42.86 Est GFR (MDRD) Af Amer 54 L Est GFR (MDRD) Non-Af 45 L BUN/Creatinine Ratio 20.8 H Glucose 228 H Lactic Acid 2.7 H* Calcium 8.6 Total Bilirubin 1.00 AST 63 H ALT 45 Alkaline Phosphatase 76 Troponin I High Sens 85 H Total Protein 6.9 Albumin 2.3 L Globulin 4.6 H Albumin/Globulin Ratio 0.5 L Urine Color Yellow Urine Clarity Sl. Cloudy Urine pH 6.0 Ur Specific [place] 1.015 Urine Protein 100 H Urine Glucose (UA) Normal Urine Ketones Negative Urine Occult Blood 150 H Urine Nitrite Negative Urine Bilirubin 1 H Urine Urobilinogen 4 H Ur Leukocyte Esterase 500 H Urine RBC 0 SEEN Urine WBC 25-50 SEEN Ur Squamous Epith Cells 0-5 SEEN Urine Bacteria 3+ Urine Mucus 0 SEEN Urinalysis reveals a pH of 6 with severe gravity 1.015. Macro was positive for protein, occult blood, bilirubin and urobilinogen as well as leukoesterase. There is 25-50 WBCs with 3+ bacteria. Patient meets criteria for sepsis. ABG Data Attestation: I personally reviewed and interpreted this ABG as follows: Interpretation: ABG reveals no acid-base disturbance. pH is 7.47, pCO2 35.4. pO2 86.4, bicarb 26.1 with a base excess of +2.5. Saturation is 97% which corresponds with pulse ox of 96%. ABG results: ABG 09/17/24 14:20 Specimen Type ART Sample Site R Radial pH 7.48 H Bicarbonate Actual 26.1 H Total CO2 27 Base Excess 3 H O2 Saturation 97 ABG pCO2 35.4 ABG pO2 86 Anthony Test Positive O2 Delivery Device Room Air Vent Mode Not entered Radiography Chest X-Ray - ED: 1 View, Read by ED Physician ([id number]. The x-ray was reviewed on the portable machine.), Normal, Heart, Mediastinum, Bony Structures, No Acute Disease (Atelectasis LLL.) and Chronic Changes Diagnostic Testing: Clinical Impression(s) from Imaging Studies Chest X-Ray 09/17/24 14:40 IMPRESSION: Increased markings at the left lung base suggestive of linear atelectasis superimposed on scarring with blunting of the left costophrenic angle. Electronically Signed: Germain Rodriguez MD at 15:01 EST , EKG Initial EKG: Attestation: I personally reviewed and interpreted this EKG as follows: Interpretation: Sinus Rhythm (Rate is 62. [place] intervals 104 ms. QRS duration 146 ms. QT duration 448 ms. [place] to the left. There is an RR prime noted in QRS complex consistent with a right bundle branch block. 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 The EKG is unchanged from February 12, 2023.) Prior: Unchanged (February 12, 2023) Management Discussion w/another healthcare provider: Hospitalist (Spoke with hospitalist. To be admitted to hospitalist service with consult to ICU. Central line was not placed since patient was fluid responsive to IV bolus.) Treatment and Re-Evaluation :: Patient's blood pressure did improve to 100 systolic. Most recent blood pressure as of 1449 is 87 systolic. Second liter of saline was ordered wide open. Critical Care Time Critical Care Time: Yes Critical care time (excluding procedures): 30-74 minutes (36), Including time spent: (History, physical, documentation, review of prior records, independent rotation laboratories alts, EKG and chest x-ray), Discussing w/Patient &/or Family/Archives Specialist, Discussing w/Consultants (Hospitalist for admission to ICU) and Arranging Admission or Transfer Discharge Plan Dx/Rx/DC Orders Clinical Impression: Acute hypotension, Acute renal insufficiency, Acute dehydration, Complicated urinary tract infection, Acidosis, lactic, Hypoalbuminemia, Severe sepsis Disposition Disposition: [facility]
[2024-09-17 14:14] LABS: Absolute Lymphocyte Count 0.82 X10^3/uL (0.83-4.51); Absolute Neutrophil Count 10.2 X10^3/uL (2.0-7.7); Basophil% 0.8 % (0-1); Eosinophil# 0.14 X10^3/uL; Eosinophils% 1.1 % (0-5); Hematocrit 34.4 % (40-54); Hemoglobin 11.2 g/dL (13.0-16.5); Lymphocyte # 0.82 X10^3/ul (0.83-4.51); Lymphocyte % 6.7 % (19-41); Mean Corp Hgb Conc 32.6 g/dL (32-36); Mean Corpuscular Hgb 30.6 pg (27.0-32.0); Mean Platelet Vol. 9.8 fl (6.2-12.0); Monocyte# 0.82 X10^3/uL; Monocyte% 6.7 % (0-10); NRBC Flagged by Analyzer 0 % (0-5); Neutrophil # 10.24 X10^3/uL (2.7-7.7); Platelet Count 277 K/mm3 (150-450); RBC Distribution Width CV 13.9 % (11.6-14.6); RBC Distribution Width SD 47.8 fl (35.1-43.9); Red Blood Count 3.66 M/mm3 (4.6-6.2); White Blood Count 12.2 K/mm3 (4.4-11.0)
[2024-09-17 14:23] LABS: Allen Test Positive; Base Excess 3 mmol/L (-2 to +2); Bicarbonate 26.1 mmol/L (22-26); Blood Gas Specimen Type ART; Mode Not entered; O2 Delivery Device Room Air; PO2 86 mmHG (75-100); SITE R Radial; SO2 97 % (95-99); Total Carbon Dioxide 27 mmol/L; pCO2 35.4 mmHg (35-45); pH 7.48 (7.35-7.45)
[2024-09-17 14:25] LABS: International Normalized Ratio 1.3; Partial Thromboplast Time 31.5 Seconds (24.1-36.2); Prothrombin Time (Protime)PT. 16.3 SECONDS (11.7-14.9)
[2024-09-17 14:31] LABS: ALB/GLOB Ratio 0.5 RATIO (0.9-2.4); AST(SGOT) 63 U/L (15-37); Alanine Aminotransfer ALT/SGPT 45 U/L (16-61); Albumin, Serum 2.3 g/dL (3.2-5.0); Alkaline Phosphatase 76 U/L (45-117); Anion Gap 7 (5-15); BUN 33 mg/dL (7-18); BUN/Creat Ratio 20.8 RATIO (10-20); Calcium,Total 8.6 mg/dL (8.5-10.1); Chloride 98 mmol/L (98-107); Creatinine, Serum 1.59 mg/dL (0.70-1.30); EST Glomerular Filtration Rate 45 mL/min (>60); Est Glom Filt Rate - Afr Amer 54 mL/min (>60); Estimated Creatinine Clearance 42.86 ml/min; Globulin 4.6 g/dL (2.2-4.2); Glucose 228 mg/dL (74-106); Potassium 4.3 mmol/L (3.5-5.1); Protein, Total 6.9 g/dL (6.4-8.2); Sodium Level 134 mmol/L (136-145); Troponin-I HS 85 pg/mL (3.0-78.0)
[2024-09-17 14:37] LABS: Mucous, Urine 0 SEEN /hpf (<or=2+); Red Blood Cells-Urine 0 SEEN /hpf (0-5)
--- NOTE | 2024-09-17 14:40 | RAD_ITS ---
STUDY: X-RAY CHEST REASON FOR EXAM: Male, 79 years old. Cough, rales RLL, hypotension TECHNIQUE: Single AP portable view of the chest. COMPARISON: Comparison is made with prior study dated August 23, 2020. FINDINGS: EKG electrodes are seen. Increased linear markings at the left lung base which have progressed as compared to prior study. This may represent linear atelectasis superimposed on mild degree of scarring. Blunting of the left costophrenic angle. Sternal cerclage wires and vascular clips are present from a prior sternotomy and coronary artery bypass graft procedure (CABG). Normal mediastinum and zach. Normal visualized pulmonary arteries. There is atherosclerotic tortuosity of the aortic arch and descending thoracic aorta. There are degenerative changes of the visualized thoracic spine. Status post right reverse shoulder replacement degenerative changes of the left shoulder joint. There is no demonstrated abnormality of the visualized soft tissue structures of the upper abdomen. RAD/Chest 1 View (Portable) IMPRESSION: Increased markings at the left lung base suggestive of linear atelectasis superimposed on scarring with blunting of the left costophrenic angle. Electronically Signed: Germain Rodriguez MD at 15:01 EST ,
[2024-09-17] MEDS: 0.9% Normal Saline (1000mL) 1,000 ML 1000 ML IV ×2 (14:41→15:11)
[2024-09-17 14:42] LABS: Color, Urine Yellow (Yellow); Glucose, Dipstick Normal (Normal); Ketone-Dipstick Negative (Negative); Leukocyte Esterase-Dipstick 500 /ul (Negative); Nitrite-Dipstick Negative (Negative); Occult Blood-Urine 150 /ul (Negative); Protein-Dipstick 100 mg/dl (Negative); Specific Gravity, Urine 1.015 (1.002-1.030); Urine Clarity Sl. Cloudy (Clear); Urine Urobilinogen 4 mg/dl (Normal)
[2024-09-17 14:43] LABS: Urine Bilirubin Dipstick 1 mg/dL (Negative)
[2024-09-17 14:47] LABS: Bacteria 3+ /hpf (None Seen)
[2024-09-17 14:48] LABS: Squamous Epithelial Cells - UA 0-5 SEEN /hpf (0-5); White Blood Cells 25-50 SEEN /hpf (0-5)
[2024-09-17 15:16] LABS: Lactic Acid 2.7 mmol/L (0.4-1.9)
[2024-09-17] MEDS: Ceftriaxone 2 GM in 0.9% Normal Saline (50mL MB+) 50 ML IV (15:45)
[2024-09-17] MEDS: NSY 0.9% NS BOLUS 760 ML IV (16:22)
--- NOTE | 2024-09-17 16:53 | HP.PCM.HOS_ITS ---
HPI - General General Date of Admission: 09/17/24 Date of Service: 09/17/24 Chief Complaint: Generalized weakness HPI Narrative NATALIA BURDICK, is a 79 M who presents to the emergency room at [facility] after being brought in by squad after a well check was done on the patient at home because his family had not heard from him in 2 weeks. Patient appeared weak and unwell. Workup in the emergency room included labs showing an elevated white blood cell count of 12.2, hemoglobin was 11.2, creatinine was 1.59, BUN was 33, glucose was 228 and lactic acid was 2.7. Urinalysis showed 25-50 white blood cells and +3 bacteria. Chest x-ray showed increased markings at the left lung base suggestive of linear atelectasis superimposed on scarring with blunting of the left costophrenic angle. Patient was noted to be hypotensive and he was given several liters of IV fluid, patient was given IV ceftriaxone. Patient's blood pressure improved with fluids. Patient will be admitted to ICU for sepsis from acute cystitis, IV fluids will be administered in his antibiotic was changed to Zosyn. Blood sugars will be monitored and sliding scale insulin will be given as needed [facility] Medical History (Updated 09/17/24 @ 17:[address] 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 Primary osteoarthritis, right shoulder Right shoulder pain Home Medications ?Medication ?Instructions ?Recorded ?Last Taken ?Type aspirin 81 mg chewable tablet 81 mg PO DAILY HEART 10/27/13 11/23/19 History fish oil-dha-epa 1,200 mg-144 1,200 ea PO BID 10/27/13 11/23/19 History mg-216 mg capsule metformin 850 mg tablet 850 mg PO BIDCM DIABETES 10/27/13 09/17/24 History simvastatin 20 mg tablet 40 mg PO QHS CHOLESTEROL 10/27/13 09/16/24 History fluticasone furoate 100 1 puff IH DAILY PRN nasel 11/23/19 11/23/19 History mcg-vilanterol 25 mcg/dose congeestion inhalation powder lisinopril 2.5 mg tablet 2.5 mg PO DAILY BP 11/23/19 09/17/24 History allopurinol 300 mg tablet mg PO 10/23/23 Unknown History atenolol 50 mg tablet 25 mg PO BP 10/23/23 09/17/24 History furosemide 20 mg tablet mg PO 10/23/23 Unknown History glimepiride 2 mg tablet 2 mg PO DAILY 10/23/23 Unknown History mupirocin 2 % topical ointment topical 10/23/23 Unknown History omeprazole 40 mg capsule,delayed 40 mg PO ACID REFLUX 10/23/23 09/17/24 History release Allergy/AdvReac Type Severity Reaction Status Date / Time No Known Allergies Allergy Verified 09/17/24 13:51 Surgical History History of heart bypass surgery Social History household members: none Smoking Status: Former smoker alcohol intake: former ROS ROS Narrative Review of systems was unobtainable due to lethargy and malaise Vital Signs Vital Signs Vital Signs: 09/17/24 13:48 09/17/24 13:51 09/17/24 14:45 Temperature 97.7 F L 96.4 F L Temperature Source Oral Core Pulse Rate 59 L 62 Respiratory Rate 18 14 Respiratory Effort Normal Non-Labored Respiratory Pattern Normal Blood Pressure 79/57 L 87/59 L Blood Pressure Mean 64 68 Pulse Ox 95 96 Oxygen Delivery Method Room Air Room Air 09/17/24 15:30 09/17/24 16:20 Temperature 96.9 F L 96.2 F L Temperature Source Core Core Pulse Rate 67 64 Respiratory Rate 15 17 Respiratory Effort Respiratory Pattern Blood Pressure 103/62 104/64 Blood Pressure Mean 75 77 Pulse Ox 98 97 Oxygen Delivery Method Room Air Room Air Weight Weight: 91.8 kg Body Mass Index (BMI) 29.9 Physical Exam Const alert and no apparent distress Constitutional Narrative: Patient appears frail and ill General Appearance: cooperative and well developed Orientation / Consciousness: awake, oriented to person and oriented to place HEENT normocephalic, head/scalp atraumatic and moist oral mucous membranes Eyes PERRL, EOMs intact bilaterally and conjunctivae normal Neck supple, no JVD, thyroid normal and no carotid bruits General: trachea midline Resp normal respiratory effort, no retractions, no use of accessory muscles and clear to auscultation bilaterally Auscultation: Negative for rales, rhonchi or wheezes Cardio regular rate, regular rhythm, S1 normal heart sound, S2 normal heart sound, no murmurs, no rub and no gallops GI normal to inspection, nondistended, normoactive bowel sounds, soft to palpation, non-tender and non-distended Extremity Extremity Narrative: Patient has evidence of vascular insufficiencies of both lower extremities with dry skin and superficial skin abrasions Skin Skin Narrative: Patient has superficial breakdown of multiple skin areas on both lower legs Neuro CN's II-XII intact bilaterally, no focal motor deficits and no sensory deficits noted Sensorium / Orientation: awake, alert, oriented to person and oriented to place Speech: speech normal Psych Psych Narrative: Patient is alert, he is a poor informant Results Lab / Micro Data 09/17/24 14:00 09/17/24 14:00 Labs: Laboratory Results - last 24 hr 09/17/24 14:00: WBC 12.2 H, RBC 3.66 L, Hgb 11.2 L, Hct 34.4 L, MCV 94.0, MCH 30.6, MCHC 32.6, RDW Std Deviation 47.8 H, RDW Coeff of Elida 13.9, Plt Count 277, MPV 9.8, Immature Gran % (Auto) 0.700, Neut % (Auto) 84.0 H, Lymph % (Auto) 6.7 L, [place] % (Auto) 6.7, Eos % (Auto) 1.1, Baso % (Auto) 0.8, Absolute Neuts (auto) 10.2 H, Absolute Lymphs (auto) 0.82 L, Nucleated RBC % 0, PT 16.3 H, INR 1.3, APTT 31.5, Sodium 134 L, Potassium 4.3, Chloride 98, Carbon Dioxide 29.0, Anion Gap 7, BUN 33 H, Creatinine 1.59 H, Estim Creat Clear Calc 42.86, Est GFR (MDRD) Af Amer 54 L, Est GFR (MDRD) Non-Af 45 L, BUN/Creatinine Ratio 20.8 H, Glucose 228 H, Lactic Acid 2.7 H*, Calcium 8.6, Total Bilirubin 1.00, AST 63 H, ALT 45, Alkaline Phosphatase 76, Troponin I High Sens 85 H, Total Protein 6.9, Albumin 2.3 L, Globulin 4.6 H, Albumin/Globulin Ratio 0.5 L 09/17/24 14:33: Urine Color Yellow, Urine Clarity Sl. Cloudy, Urine pH 6.0, Ur Specific [place] 1.015, Urine Protein 100 H, Urine Glucose (UA) Normal, Urine Ketones Negative, Urine Occult Blood 150 H, Urine Nitrite Negative, Urine Bilirubin 1 H, Urine Urobilinogen 4 H, Ur Leukocyte Esterase 500 H, Urine RBC 0 SEEN, Urine WBC 25-50 SEEN, Ur Squamous Epith Cells 0-5 SEEN, Urine Bacteria 3+, Urine Mucus 0 SEEN ABG Data ABG results: ABG 09/17/24 14:20 Specimen Type ART Sample Site R Radial pH 7.48 H Bicarbonate Actual 26.1 H Total CO2 27 Base Excess 3 H O2 Saturation 97 ABG pCO2 35.4 ABG pO2 86 Anthony Test Positive O2 Delivery Device Room Air Vent Mode Not entered Imaging Radiology Impression Chest X-Ray 09/17/24 14:40 IMPRESSION: Increased markings at the left lung base suggestive of linear atelectasis superimposed on scarring with blunting of the left costophrenic angle. Electronically Signed: Germain Rodriguez MD at 15:01 EST , Assessment & Plan Assessment/Plan (1) Sepsis: PLAN: Plan 1. Sepsis secondary to acute cystitis-patient will be admitted to ICU, I have elected to change the patient's antibiotics to Zosyn, fluid will be administered, labs will be monitored, urine and blood cultures were obtained in the ER #2 dehydration secondary to sepsis-patient will be given IV fluids, labs will be monitored #3 type 2 diabetes-patient's blood sugars will be monitored, sliding scale insulin be administered as needed #4 acute debility-patient will be seen by PT and OT #5 lactic acidosis secondary to dehydration Total clinical time spent by myself addressing the patient's medical issues, reviewing all of his data, and collaborating with patient's care team: 75 minutes Charges/Coding Visit Charges Inpatient E&M: 90822 Init Hosp L3
[2024-09-17 18:09] LABS: Reflex Lactate? Y
--- NOTE | 2024-09-17 18:39 | CASEMGMT ---
Care Management Face to Face with patient for initial transition planning/care coordination assessment.? 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 Patient lying in bed, alert and oriented. Patient willing to participate in assessment and is able to answer all questions appropriately.? Care providers, pharmacy, and demographics verified. Admitting Diagnosis: Acute dehydration Other diagnosis history: h/o heart bypass PCP: ?Dr. Peña Specialists: ?None Preferred Pharmacy: [facility] Insurance: [employer] Prescription Benefit:? yes Living Will/HPOA: ?States his brother is his HPOA, nothing on record LNOK: Steve Sanders Living Arrangements: Patient lives by himself in a two story home.? States he only uses the downstairs because he cannot get to his second floor.? Patient reports that he is sleeping on a couch and bathing out of the bathroom sink.? Patient reports to being able to take care of all ADLs, laundry, meals and medications.? Transportation: Patient drives DME: keyla walker that patient states is too big to use in the house, urinal HHC: None SNF/Rehab: ?Was in a SNF in [place] but cannot remember name Community Resources: None Behavioral Health History:? None Patient goals: Patient wishes to discharge home. Disposition Plan: CM or SW to follow for discharge planning needs that may arise.
[2024-09-17] MEDS: 0.9% Normal Saline (1000mL) 1,000 ML 125 ML IV (18:59)
[2024-09-17 19:12] LABS: Lactic Acid 1.9 mmol/L (0.4-1.9)
[2024-09-17 19:19] LABS: Bedside Glucose 102 mg/dL (74-106)
[2024-09-17] MEDS: Piperacil/Tazobactam 3.375 GM in 0.9% Normal Saline (50mL MB+) 50 ML IV (20:11)
[2024-09-17] MEDS: Heparin Injection (Vial) 5,000 UNIT/ML VIAL 5000 UNIT SC (20:11)
[2024-09-17] MEDS: Menthol/Lanolin/Calamine/Znox 113 GM Tube 1 APPLIC TOPICAL (20:11)
[2024-09-17 20:33] LABS: Bedside Glucose 103 mg/dL (74-106)
[2024-09-18] VITALS (45 sets, daily range): BP systolic 73–139; BP diastolic 39–75; PULSE 56–79; RESP 8–29; TEMP 36.2–37.7; O2SAT 93–100; BMI 28.5
--- NOTE | 2024-09-18 00:21 | PCM.HOSP.N ---
Hospitalist Note Patient with first BP MAP < 65, has been primarily maintaining 70 range. Will administer 500 cc bolus. If not successful given already received 2L and on MIVF will start pressor therapy.
[2024-09-18] MEDS: 0.9% Normal Saline (250mL Bag) 250 ML 999 ML IV (00:38)
[2024-09-18] MEDS: 0.9% Normal Saline (1000mL) 1,000 ML 125 ML IV ×2 (02:37→10:44)
[2024-09-18 03:39] LABS: Absolute Lymphocyte Count 0.82 X10^3/uL (0.83-4.51); Absolute Neutrophil Count 7.9 X10^3/uL (2.0-7.7); Basophil# 0.06 X10^3/uL; Basophil% 0.6 % (0-1); Eosinophil# 0.27 X10^3/uL; Eosinophils% 2.8 % (0-5); Hematocrit 28.8 % (40-54); Hemoglobin 9.5 g/dL (13.0-16.5); Lymphocyte # 0.82 X10^3/ul (0.83-4.51); Lymphocyte % 8.4 % (19-41); Mean Corpuscular Hgb 30.9 pg (27.0-32.0); Mean Corpuscular Volume 93.8 fL (80-94); Mean Platelet Vol. 9.8 fl (6.2-12.0); Monocyte# 0.63 X10^3/uL; Monocyte% 6.5 % (0-10); NRBC Flagged by Analyzer 0 % (0-5); Neutrophil # 7.89 X10^3/uL (2.7-7.7); Neutrophil % 80.9 % (47-70); Platelet Count 259 K/mm3 (150-450); RBC Distribution Width CV 13.7 % (11.6-14.6); RBC Distribution Width SD 47.1 fl (35.1-43.9); Red Blood Count 3.07 M/mm3 (4.6-6.2); White Blood Count 9.8 K/mm3 (4.4-11.0)
[2024-09-18 03:50] LABS: Anion Gap 6 (5-15); BUN 27 mg/dL (7-18); BUN/Creat Ratio 23.5 RATIO (10-20); Calcium,Total 7.5 mg/dL (8.5-10.1); Chloride 106 mmol/L (98-107); Creatinine, Serum 1.15 mg/dL (0.70-1.30); EST Glomerular Filtration Rate 65 mL/min (>60); Est Glom Filt Rate - Afr Amer 79 mL/min (>60); Glucose 119 mg/dL (74-106); Sodium Level 136 mmol/L (136-145)
[2024-09-18] MEDS: Norepinephrine 8 MG in 0.9% Normal Saline (250mL Bag) 242 ML 9.4 MG CONT INF (04:50)
[2024-09-18] MEDS: Menthol/Lanolin/Calamine/Znox 113 GM Tube 1 APPLIC TOPICAL ×3 (04:50→20:40)
[2024-09-18] MEDS: Piperacil/Tazobactam 3.375 GM in 0.9% Normal Saline (50mL MB+) 50 ML IV ×3 (04:52→20:37)
--- NOTE | 2024-09-18 09:30 | PN_ITS ---
Subjective Subjective Patient seen and examined. He had no active complaints and was lying comfortably in bed. He denied any nausea, vomiting, fever or chills. Review of systems was otherwise negative. He had to be started on levophed overnight. Objective Data Objective Data Vital Signs: Vital Signs Temp Pulse Resp BP Pulse Ox O2 Del Method O2 Flow Rate 98.1 F 63 14 117/63 100 Nasal Cannula 2 09/18/24 03:00 09/18/24 09:00 09/18/24 09:00 09/18/24 09:00 09/18/24 09:00 09/18/24 09:00 09/18/24 09:00 Oxygen Flow Rate (L/min) 2 Oxygen Delivery Method Nasal Cannula Weight: 192 lb 10.944 oz Body Mass Index (BMI) 28.5 Intake & Output: Intake and Output for Last 24 Hours 09/16/24 09/17/24 09/18/24 23:59 23:59 23:59 Intake Total 2250 / 2250 1498.04 / 1498.04 Output Total 1100 / 1100 Balance 2250 / 1550 398.04 / 398.04 Lab / Micro Data 09/18/24 03:30 09/18/24 03:30 Labs: Laboratory Results - last 24 hr 09/17/24 14:00: WBC 12.2 H, RBC 3.66 L, Hgb 11.2 L, Hct 34.4 L, MCV 94.0, MCH 30.6, MCHC 32.6, RDW Std Deviation 47.8 H, RDW Coeff of Elida 13.9, Plt Count 277, MPV 9.8, Immature Gran % (Auto) 0.700, Neut % (Auto) 84.0 H, Lymph % (Auto) 6.7 L, [place] % (Auto) 6.7, Eos % (Auto) 1.1, Baso % (Auto) 0.8, Absolute Neuts (auto) 10.2 H, Absolute Lymphs (auto) 0.82 L, Nucleated RBC % 0, PT 16.3 H, INR 1.3, APTT 31.5, Sodium 134 L, Potassium 4.3, Chloride 98, Carbon Dioxide 29.0, Anion Gap 7, BUN 33 H, Creatinine 1.59 H, Estim Creat Clear Calc 42.86, Est GFR (MDRD) Af Amer 54 L, Est GFR (MDRD) Non-Af 45 L, BUN/Creatinine Ratio 20.8 H, Glucose 228 H, Lactic Acid 2.7 H*, Calcium 8.6, Total Bilirubin 1.00, AST 63 H, ALT 45, Alkaline Phosphatase 76, Troponin I High Sens 85 H, Total Protein 6.9, Albumin 2.3 L, Globulin 4.6 H, Albumin/Globulin Ratio 0.5 L 09/17/24 14:33: Urine Color Yellow, Urine Clarity Sl. Cloudy, Urine pH 6.0, Ur Specific [place] 1.015, Urine Protein 100 H, Urine Glucose (UA) Normal, Urine Ketones Negative, Urine Occult Blood 150 H, Urine Nitrite Negative, Urine Bilirubin 1 H, Urine Urobilinogen 4 H, Ur Leukocyte Esterase 500 H, Urine RBC 0 SEEN, Urine WBC 25-50 SEEN, Ur Squamous Epith Cells 0-5 SEEN, Urine Bacteria 3+, Urine Mucus 0 SEEN 09/17/24 18:25: Lactic Acid 1.9 09/17/24 19:01: POC Glucose 102 09/17/24 20:10: POC Glucose 103 09/18/24 03:30: WBC 9.8, RBC 3.07 L, Hgb 9.5 L, Hct 28.8 L, MCV 93.8, MCH 30.9, MCHC 33.0, RDW Std Deviation 47.1 H, RDW Coeff of Elida 13.7, Plt Count 259, MPV 9.8, Immature Gran % (Auto) 0.800, Neut % (Auto) 80.9 H, Lymph % (Auto) 8.4 L, [place] % (Auto) 6.5, Eos % (Auto) 2.8, Baso % (Auto) 0.6, Absolute Neuts (auto) 7.9 H, Absolute Lymphs (auto) 0.82 L, Nucleated RBC % 0, Sodium 136, Potassium 4.0, Chloride 106, Carbon Dioxide 24.0, Anion Gap 6, BUN 27 H, Creatinine 1.15, Estim Creat Clear Calc 56.10, Est GFR (MDRD) Af Amer 79, Est GFR (MDRD) Non-Af 65, BUN/Creatinine Ratio 23.5 H, Glucose 119 H, Calcium 7.5 L ABG Data ABG results: ABG 09/17/24 14:20 Specimen Type ART Sample Site R Radial pH 7.48 H Bicarbonate Actual 26.1 H Total CO2 27 Base Excess 3 H O2 Saturation 97 ABG pCO2 35.4 ABG pO2 86 Anthony Test Positive O2 Delivery Device Room Air Vent Mode Not entered Radiography Diagnostic Testing: Radiology Impression Chest X-Ray 09/17/24 14:40 IMPRESSION: Increased markings at the left lung base suggestive of linear atelectasis superimposed on scarring with blunting of the left costophrenic angle. Electronically Signed: Germain Rodriguez MD at 15:01 EST , Physical Exam Const alert, oriented x3, no apparent distress and well nourished General Appearance: cooperative and well developed HEENT normocephalic, head/scalp atraumatic, moist oral mucous membranes and oropharynx normal Eyes PERRL and EOMs intact bilaterally Neck no lymphadenopathy and supple Lymph Lymphatic: no lymphadenopathy noted and no lymphedema noted Resp normal respiratory effort, normal air movement and clear to auscultation bilaterally Cardio regular rate, regular rhythm, S1 normal heart sound, S2 normal heart sound and no murmurs GI normal to inspection, nondistended, normoactive bowel sounds, soft to palpation, non-tender and non-distended Extremity normal capillary refill, no clubbing, cyanosis or edema and no calf tenderness General Extremity: no tenderness to palpation of joints or extremities Skin General Skin Exam: no breakdown Neuro CN's II-XII intact bilaterally, no focal motor deficits and no sensory deficits noted Motor Exam: strength 5/5 throughout and general weakness Psych thought process normal and cooperative Appearance: appropriate Assessment & Plan Assessment/Plan (1) Septic shock: (2) Complicated urinary tract infection: PLAN: Plan #Septic shock due to UTI * Patient on IV Zosyn. Urine and blood cultures pending. Had to be started on Levophed overnight. * Critical care on board. Titrate Levophed to maintain MAP more than 65. #Lactic acidosis: Likely due to dehydration and septic shock, now resolved. #Debility and weakness due to septic shock: PT OT on board. Fall precautions. #Hypertension: Atenolol and lisinopril on hold on hold due to septic shock #Type 2 diabetes mellitus: Metformin held due to lactic acidosis and septic shock. Insulin sliding scale. Accu-Cheks ACHS #DVT prophylaxis: Heparin Charges/Coding Visit Charges Inpatient E&M: 47445 [facility] Hosp L3
[2024-09-18] MEDS: Aspirin 81 MG TAB.CHEW PO (10:45)
[2024-09-18] MEDS: Heparin Injection (Vial) 5,000 UNIT/ML VIAL 5000 UNIT SC ×2 (10:46→20:40)
[2024-09-18] MEDS: Insulin Lispro 100 UNIT/ML INSULN.PEN SC ×3 (12:39→20:41)
[2024-09-18 12:58] LABS: Bedside Glucose 191 mg/dL (74-106)
--- NOTE | 2024-09-18 14:00 | RAD_ITS ---
INDICATION: PICC placement EXAMINATION/TECHNIQUE: X-RAY - XR Chest 1 View COMPARISON: Prior study dated: 09/17/2024 FINDINGS: LINES/DEVICES: Left-sided PICC line with its tip in the cavoatrial junction region. LUNGS: [Atelectatic changes in the left lung base. MEDIASTINUM AND CARDIOVASCULAR STRUCTURES: Status post median sternotomy and CABG. BONES AND SOFT TISSUES: Right shoulder arthroplasty is again seen. RAD/CXR for Line Placement IMPRESSION: 1. Left-sided PICC line with its tip in the cavoatrial junction region. 2. Atelectatic changes in the left lung base. Electronically Signed: Armando Brito MD at 15:09 EST ,
[2024-09-18 16:41] LABS: Bedside Glucose 176 mg/dL (74-106)
--- NOTE | 2024-09-18 16:41 | CASEMGMT ---
Social Work SW met with pt to discuss discharge plan. SW spoke with pt regarding progress in therapy today and pt does admit that he is very weak. SW spoke with pt regarding SNF placement and pt is agreeable. A list of SNF providers including quality and resource use data and consistent with the patient?s preferred geographic region, medical needs, and insurance network were provided from the [employer] Guide. Pt preferred provider is [facility]. Referral to be made to the [facility] on Friday. Pt will need precert prior to discharge. Plan: [facility], pending acceptance and precert FRANKI Ch
--- NOTE | 2024-09-18 17:38 | NURSING ---
education re chronic illness deferred till acute illness resolving
--- NOTE | 2024-09-18 17:46 | CON.PCM.CC_ITS ---
HPI Consult Data Date of Consult: 09/18/24 HPI Narrative Reason for Consultation: sepsis HPI Narrative: Pt is a 79 yo man with PMH listed below who was brought to the ED after a welfare check found him disheveled and confused. In the ED he was found to have an elevated WBC with pyuria on urinalysis. He was given IVFs and abx for a presumptive dx of severe sepsis due to a urinary tract infection. He was started on levophed in the ICU due to failure to meet MAP goals with IVF alone. AT the time of my exam the pt reports he was feeling better but still quite fatigued. He denies any n/v/d at home but states that he wasn't feeling well for 4-5 days prior to presentation. [facility] Medical History (Updated 09/18/24 @ 09:[address] 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 Primary osteoarthritis, right shoulder Right shoulder pain Home Medications ?Medication ?Instructions ?Recorded ?Last Taken ?Type aspirin 81 mg chewable tablet 81 mg PO DAILY HEART 10/27/13 11/23/19 History fish oil-dha-epa 1,200 mg-144 1,200 ea PO BID supplement 10/27/13 11/23/19 History mg-216 mg capsule metformin 850 mg tablet 850 mg PO BIDCM DIABETES 10/27/13 09/17/24 History simvastatin 20 mg tablet 40 mg PO QHS CHOLESTEROL 10/27/13 09/16/24 History fluticasone furoate 100 1 puff IH DAILY PRN nasel 11/23/19 11/23/19 History mcg-vilanterol 25 mcg/dose congeestion inhalation powder lisinopril 2.5 mg tablet 2.5 mg PO DAILY BP 11/23/19 09/17/24 History allopurinol 300 mg tablet 300 mg PO DAILY gout 10/23/23 Unknown History atenolol 50 mg tablet 25 mg PO Q24H BP 10/23/23 09/17/24 History furosemide 20 mg tablet 20 mg PO DAILY edema 10/23/23 Unknown History mupirocin 2 % topical ointment 1 applic topical DAILY PRN 10/23/23 Unknown History laceraction omeprazole 40 mg capsule,delayed 40 mg PO DAILY ACID REFLUX 10/23/23 09/17/24 History release metformin 1,000 mg tablet 500 mg PO DAILY diabetes 09/17/24 Unknown History Allergy/AdvReac Type Severity Reaction Status Date / Time No Known Allergies Allergy Verified 09/17/24 13:51 Surgical History History of heart bypass surgery Social History household members: none Smoking Status: Former smoker alcohol intake: former Objective Data Objective Data Vital Signs: Vital Signs Last response 3 Temperature 37.0 C 09/18/24 17:00 Temperature Source Core 09/18/24 17:00 Pulse Rate 63 09/18/24 17:00 Pulse Strength Weak (1+) 09/17/24 19:57 Respiratory Rate 22 H 09/18/24 17:00 Respiratory Effort Non-Labored 09/18/24 12:00 Respiratory Depth Normal 09/18/24 12:00 Respiratory Pattern Normal 09/18/24 12:00 Blood Pressure 108/65 09/18/24 17:00 Blood Pressure Mean 79 09/18/24 17:00 Blood Pressure Source Monitor 09/18/24 17:00 Blood Pressure Position Semi-Fowlers 09/18/24 17:00 Blood Pressure Location Right Arm 09/18/24 17:00 Pulse Ox 97 09/18/24 17:00 Oxygen Delivery Method Room Air 09/18/24 17:00 Oxygen Flow Rate (L/min) 2 09/18/24 09:00 I&O: I&O Last 24 Hours 3 09/17/24 09/18/24 09/18/24 23:59 11:59 23:59 Intake Total 2250 / 2250 2516.84 / 3185.64 668.8 / 3185.64 Output Total 1550 / 1550 Balance 2250 / 1550 966.84 / 1635.64 668.8 / 1635.64 I&O: Total Stay 3 09/17/24 13:46 thru 09/18/24 13:00 Intake Total 5435.64 Output Total 1550 Balance 3885.64 Current Meds Ordered / Administered: Current meds ordered / Administered 3 Generic Name Dose Route Start Last Admin Trade Name Freq PRN Reason Stop Dose Admin Acetaminophen 650 mg 09/17/24 18:25 Acetaminophen 325 Mg Tablet PO Q6H PRN PRN Pain 1-10 Or Fever >100.7 Aspirin 81 mg 09/18/24 08:00 09/18/24 10:45 Aspirin 81 Mg Tab.Chew PO 81 mg DAILYCM LOUIS Administration Calamine/Phenol 1 applic 09/17/24 22:00 09/18/24 14:41 Menthol/Lanolin/Calamine/Znox 113 Gm Tube TOPICAL 1 applic TID LOUIS Administration Protocol Glucagon 1 mg 09/17/24 18:25 Glucagon 1 Mg/Ml Syringe IM X1 PRN HYPOGLYCEMIA Protocol Heparin Sodium (Porcine) 5,000 unit 09/17/24 22:00 09/18/24 10:46 Heparin Injection (Vial) 5,000 Unit/Ml Vial SC 5,000 unit Q12 L[place]IS Administration Dextrose 250 mls @ 0 mls/hr 09/17/24 18:25 Dextrose 10%-Water IV .Q0M PRN HYPOGLYCEMIA Protocol As Directed Sodium Chloride 1,000 mls @ 125 mls/hr 09/17/24 18:25 09/18/24 10:44 IV 09/18/24 18:24 125 mls/hr .Q8H L[place]IS Administration Protocol Piperacillin Sod/Tazobactam 50 mls @ 12.5 mls/hr 09/17/24 22:00 09/18/24 14:33 Sod 3.375 gm/ Sodium Chloride IV 12.5 mls/hr Q8 L[place]IS Administration Norepinephrine Bitartrate 8 mg 250 mls @ 9.375 mls/hr 09/18/24 04:20 09/18/24 13:00 / Sodium Chloride CONT INF 5 mcg/min .[id number] LOUIS 9.4 mls/hr Titration Protocol 5 MCG/MIN Insulin Human Lispro 0 unit 09/17/24 18:25 09/18/24 16:22 Insulin Lispro 100 Unit/Ml Insuln.Pen SC 2 units ACHS L[place]IS Administration Protocol Ondansetron HCl 4 mg 09/17/24 18:25 Ondansetron 4 Mg/2 Ml Vial IV Q8H PRN PRN NAUSEA/VOMITING Sodium Chloride 10 - 40 ml 09/17/24 18:43 0.9% Saline Lock 10 Ml Syringe IV UD PRN SALINE FLUSH Physical Exam Const alert and no apparent distress General Appearance: cooperative and comfortable HEENT normocephalic Eyes no scleral icterus Neck General: normal visual inspection Chest inspection of chest normal Chest: symmetrical chest wall rise Resp normal respiratory effort and normal air movement Effort and Inspection: able to speak in complete sentences Cardio regular rate and regular rhythm GI normal to inspection, nondistended, normoactive bowel sounds and non-tender Skin Skin Narrative: dry skin Neuro oriented x3, moves all extremities and no focal motor deficits Lab / Micro Data Attestation: I reviewed the patient's lab results. 09/18/24 03:30 09/18/24 03:30 Labs: Laboratory Results - last 24 hr 09/17/24 18:25: Lactic Acid 1.9 09/17/24 19:01: POC Glucose 102 09/17/24 20:10: POC Glucose 103 09/18/24 03:30: WBC 9.8, RBC 3.07 L, Hgb 9.5 L, Hct 28.8 L, MCV 93.8, MCH 30.9, MCHC 33.0, RDW Std Deviation 47.1 H, RDW Coeff of [place] 13.7, Plt Count 259, MPV 9.8, Immature Gran % (Auto) 0.800, Neut % (Auto) 80.9 H, Lymph % (Auto) 8.4 L, [place] % (Auto) 6.5, Eos % (Auto) 2.8, Baso % (Auto) 0.6, Absolute Neuts (auto) 7.9 H, Absolute Lymphs (auto) 0.82 L, Nucleated RBC % 0, Sodium 136, Potassium 4.0, Chloride 106, Carbon Dioxide 24.0, Anion Gap 6, BUN 27 H, Creatinine 1.15, Estim Creat Clear Calc 56.10, Est GFR (MDRD) Af Amer 79, Est GFR (MDRD) Non-Af 65, BUN/Creatinine Ratio 23.5 H, Glucose 119 H, Calcium 7.5 L 09/18/24 12:34: POC Glucose 191 H 09/18/24 16:21: POC Glucose 176 H Micro: Microbiology 09/17/24 14:32 Urine Catheter - Lau Urine Culture - 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 Left-sided PICC line with its tip in the cavoatrial junction region. 2. Atelectatic changes in the left lung base. Electronically Signed: Armando Brito MD at 15:09 EST , Assessment and Plan . Assessment and plan: Assessment: UTI Severe Sepsis Volume Depletion Protein Calorie Malnutrition -wean levohped as tolerated to keep MAP > 65 -cont current abx and adjust as culture data matures -if pressor requirements rise can consider stress dose steroids, for now we can probably avoid it Critical Care Time: 30 minutes The entirety of this encounter was done via Telemedicine
[2024-09-18 21:16] LABS: Bedside Glucose 212 mg/dL (74-106)
[2024-09-19] VITALS (53 sets, daily range): BP systolic 78–155; BP diastolic 46–88; PULSE 55–86; RESP 13–29; TEMP 36.7–37.5; O2SAT 92–99; BMI 29.0
[2024-09-19] MEDS: Piperacil/Tazobactam 3.375 GM in 0.9% Normal Saline (50mL MB+) 50 ML IV ×3 (04:54→20:47)
[2024-09-19] MEDS: 0.9% Saline Lock 10 ML Syringe IV ×3 (04:54→16:23)
[2024-09-19] MEDS: Menthol/Lanolin/Calamine/Znox 113 GM Tube 1 APPLIC TOPICAL ×3 (04:55→20:47)
[2024-09-19 05:23] LABS: Absolute Lymphocyte Count 1.06 X10^3/uL (0.83-4.51); Absolute Neutrophil Count 4.6 X10^3/uL (2.0-7.7); Basophil# 0.07 X10^3/uL; Basophil% 1.1 % (0-1); Eosinophil# 0.37 X10^3/uL; Eosinophils% 5.6 % (0-5); Hematocrit 29.6 % (40-54); Hemoglobin 9.5 g/dL (13.0-16.5); Lymphocyte # 1.06 X10^3/ul (0.83-4.51); Lymphocyte % 16.1 % (19-41); Mean Corp Hgb Conc 32.1 g/dL (32-36); Mean Corpuscular Hgb 30.6 pg (27.0-32.0); Mean Corpuscular Volume 95.5 fL (80-94); Mean Platelet Vol. 9.8 fl (6.2-12.0); Monocyte% 7.6 % (0-10); NRBC Flagged by Analyzer 0 % (0-5); Neutrophil # 4.55 X10^3/uL (2.7-7.7); Platelet Count 311 K/mm3 (150-450); RBC Distribution Width CV 13.7 % (11.6-14.6); RBC Distribution Width SD 47.8 fl (35.1-43.9); White Blood Count 6.6 K/mm3 (4.4-11.0)
[2024-09-19 05:40] LABS: Anion Gap 3 (5-15); BUN 22 mg/dL (7-18); BUN/Creat Ratio 20.2 RATIO (10-20); Chloride 108 mmol/L (98-107); Creatinine, Serum 1.09 mg/dL (0.70-1.30); EST Glomerular Filtration Rate 70 mL/min (>60); Est Glom Filt Rate - Afr Amer 84 mL/min (>60); Estimated Creatinine Clearance 60.51 ml/min; Glucose 159 mg/dL (74-106); Potassium 4.2 mmol/L (3.5-5.1); Sodium Level 137 mmol/L (136-145)
[2024-09-19] MEDS: Aspirin 81 MG TAB.CHEW PO (10:38)
[2024-09-19] MEDS: Heparin Injection (Vial) 5,000 UNIT/ML VIAL 5000 UNIT SC ×2 (10:38→20:48)
[2024-09-19 11:55] LABS: Bedside Glucose 194 mg/dL (74-106)
[2024-09-19] MEDS: Norepinephrine 8 MG in 0.9% Normal Saline (250mL Bag) 242 ML 3.8 MG CONT INF (12:19)
[2024-09-19] MEDS: Insulin Lispro 100 UNIT/ML INSULN.PEN SC ×3 (12:21→20:50)
--- NOTE | 2024-09-19 12:51 | PCM.PROGNOTE ---
Subjective Subjective Patient seen and examined. He had no active complaints. He still remains hypotensive and remains on the Levophed drip. Has been difficult weaning him off the Levophed. Review of systems otherwise negative. Objective Data Objective Data Vital Signs: Vital Signs Temp Pulse Resp BP Pulse Ox O2 Del Method O2 Flow Rate 98.6 F 60 16 90/54 L 95 Room Air 2 09/19/24 11:00 09/19/24 11:00 09/19/24 11:00 09/19/24 12:09/19/24 11:00 09/19/24 11:00 09/18/24 09:00 Oxygen Flow Rate (L/min) 2 Oxygen Delivery Method Room Air Weight: 195 lb 15.855 oz Body Mass Index (BMI) 29.0 Intake & Output: Intake and Output for Last 24 Hours 09/17/24 09/18/24 09/19/24 23:59 23:59 23:59 Intake Total 2250 / 2250 4782.94 / 4784.82 359.55 / 359.55 Output Total 2605 / 2605 650 / 650 Balance 2250 / 1550 2177.94 / 2179.82 -290.45 / -290.45 Lab / Micro Data 09/19/24 05:00 09/19/24 05:00 Labs: Laboratory Results - last 24 hr 09/18/24 12:34: POC Glucose 191 H 09/18/24 16:21: POC Glucose 176 H 09/18/24 20:41: POC Glucose 212 H 09/19/24 05:00: WBC 6.6, RBC 3.10 L, Hgb 9.5 L, Hct 29.6 L, MCV 95.5 H, MCH 30.6, MCHC 32.1, RDW Std Deviation 47.8 H, RDW Coeff of Elida 13.7, Plt Count 311, MPV 9.8, Immature Gran % (Auto) 0.600, Neut % (Auto) 69.0, Lymph % (Auto) 16.1 L, [place] % (Auto) 7.6, Eos % (Auto) 5.6 H, Baso % (Auto) 1.1 H, Absolute Neuts (auto) 4.6, Absolute Lymphs (auto) 1.06, Nucleated RBC % 0, Sodium 137, Potassium 4.2, Chloride 108 H, Carbon Dioxide 26.0, Anion Gap 3 L, BUN 22 H, Creatinine 1.09, Estim Creat Clear Calc 60.51, Est GFR (MDRD) Af Amer 84, Est GFR (MDRD) Non-Af 70, BUN/Creatinine Ratio 20.2 H, Glucose 159 H, Calcium 8.0 L 09/19/24 11:31: POC Glucose 194 H Micro: Microbiology 09/17/24 14:32 Urine Catheter - Lau Urine Culture - Preliminary Klebsiella pneumoniae sp pneum Radiography Diagnostic Testing: Radiology Impression Chest X-Ray 09/18/24 14:00 IMPRESSION: 1. Left-sided PICC line with its tip in the cavoatrial junction region. 2. Atelectatic changes in the left lung base. Electronically Signed: Armando Brito MD at 15:09 EST , Physical Exam Const alert, oriented x3, no apparent distress, healthy appearing and well nourished Constitutional Narrative: Patient appears frail and ill General Appearance: cooperative, well kempt and well developed Orientation / Consciousness: awake, oriented to person, oriented to place and oriented to time HEENT normocephalic, head/scalp atraumatic, moist oral mucous membranes and oropharynx normal Eyes PERRL, EOMs intact bilaterally and conjunctivae normal Neck no lymphadenopathy, supple, no JVD, thyroid normal and no carotid bruits General: trachea midline Lymph Lymphatic: no lymphadenopathy noted and no lymphedema noted Resp normal respiratory effort, normal air movement, no retractions, no use of accessory muscles and clear to auscultation bilaterally Auscultation: Negative for rales, rhonchi or wheezes Cardio regular rate, regular rhythm, S1 normal heart sound, S2 normal heart sound, no murmurs, no rub and no gallops GI normal to inspection, nondistended, normoactive bowel sounds, soft to palpation, non-tender and non-distended Extremity normal capillary refill, no clubbing, cyanosis or edema and no calf tenderness General Extremity: no tenderness to palpation of joints or extremities Skin no rashes or lesions noted General Skin Exam: no breakdown Neuro oriented x3, CN's II-XII intact bilaterally, no focal motor deficits and no sensory deficits noted Sensorium / Orientation: awake, alert, oriented to person and oriented to place Speech: speech normal Motor Exam: strength 5/5 throughout and general weakness Psych thought process normal and cooperative Psych Narrative: flat affect Appearance: appropriate Mood & Affect: flat affect Assessment & Plan Assessment/Plan (1) Septic shock: (2) Complicated urinary tract infection: PLAN: Plan #Septic shock due to UTI Patient on IV Zosyn. urine cultures growing Klebsiella pneumoniae blood cultures pending. remains on levophed Critical care on board. Titrate Levophed to maintain MAP more than 65. #Lactic acidosis: Likely due to dehydration and septic shock, now resolved. #Debility and weakness due to septic shock: PT OT on board. Fall precautions. #Hypertension: Atenolol and lisinopril on hold on hold due to septic shock #Type 2 diabetes mellitus: Metformin held due to lactic acidosis and septic shock. Insulin sliding scale. Accu-Cheks ACHS #DVT prophylaxis: Heparin Charges/Coding Visit Charges Inpatient E&M: 27029 [facility] Hosp L3
--- NOTE | 2024-09-19 14:51 | NURSING ---
education re chronic illness deferred till acute illness resolving
[2024-09-19 16:10] LABS: Bedside Glucose 261 mg/dL (74-106)
--- NOTE | 2024-09-19 17:14 | PCM.PN.TICU ---
Objective Data Objective Data Vital Signs: Vital Signs Last response Temperature 36.8 C 09/19/24 17:00 Temperature Source Core 09/19/24 17:00 Pulse Rate 62 09/19/24 17:00 Pulse Strength Normal (2+) 09/19/24 10:00 Respiratory Rate 26 H 09/19/24 17:00 Respiratory Effort Normal 09/19/24 16:00 Respiratory Depth Normal 09/19/24 16:00 Respiratory Pattern Normal 09/19/24 16:00 Blood Pressure 101/62 09/19/24 17:00 Blood Pressure Mean 75 09/19/24 17:00 Blood Pressure Source Monitor 09/19/24 17:00 Blood Pressure Position Semi-Fowlers 09/19/24 17:00 Blood Pressure Location Right Arm 09/19/24 17:00 Pulse Ox 98 09/19/24 17:00 Oxygen Delivery Method Room Air 09/19/24 17:00 Oxygen Flow Rate (L/min) 2 09/18/24 09:00 I&O: I&O Last 24 Hours 09/18/24 09/19/24 09/19/24 23:59 11:59 23:59 Intake Total 2266.10 / 4784.82 357.65 / 669.77 312.12 / 669.77 Output Total 1055 / 2605 650 / 2100 1450 / 2100 Balance 1211.10 / 2179.82 -292.35 / -1430.23 -1137.88 / -1430.23 I&O: Total Stay 09/17/24 13:46 thru 09/19/24 17:07 Intake Total 7702.71 Output Total 4705 Balance 2997.71 Current Meds Ordered / Administered: Current meds ordered / Administered Generic Name Dose Route Start Last Admin Trade Name Freq PRN Reason Stop Dose Admin Acetaminophen 650 mg 09/17/24 18:25 Acetaminophen 325 Mg Tablet PO Q6H PRN PRN Pain 1-10 Or Fever >100.7 Aspirin 81 mg 09/18/24 08:00 09/19/24 10:38 Aspirin 81 Mg Tab.Chew PO 81 mg DAILYCM [facility] Administration Calamine/Phenol 1 applic 09/17/24 22:00 09/19/24 14:08 Menthol/Lanolin/Calamine/Znox 113 Gm Tube TOPICAL 1 applic TID [facility] Administration Protocol Glucagon 1 mg 09/17/24 18:25 Glucagon 1 Mg/Ml Syringe IM X1 PRN HYPOGLYCEMIA Protocol Heparin Sodium (Porcine) 5,000 unit 09/17/24 22:00 09/19/24 10:38 Heparin Injection (Vial) 5,000 Unit/Ml Vial SC 5,000 unit Q12 [facility] Administration Dextrose 250 mls @ 0 mls/hr 09/17/24 18:25 Dextrose 10%-Water IV .Q0M PRN HYPOGLYCEMIA Protocol As Directed Piperacillin Sod/Tazobactam 50 mls @ 12.5 mls/hr 09/17/24 22:00 09/19/24 14:08 Sod 3.375 gm/ Sodium Chloride IV 12.5 mls/hr Q8 [facility] Administration Norepinephrine Bitartrate 8 mg 250 mls @ 9.375 mls/hr 09/18/24 04:20 09/19/24 17:07 / Sodium Chloride CONT INF 0 mcg/min .[id number] [place] 0 mls/hr Titration Protocol 5 MCG/MIN Insulin Human Lispro 0 unit 09/17/24 18:25 09/19/24 16:23 Insulin Lispro 100 Unit/Ml Insuln.Pen SC 6 units ACHS [facility] Administration Protocol Ondansetron HCl 4 mg 09/17/24 18:25 Ondansetron 4 Mg/2 Ml Vial IV Q8H PRN PRN NAUSEA/VOMITING Sodium Chloride 10 - 40 ml 09/17/24 18:43 09/19/24 16:23 0.9% Saline Lock 10 Ml Syringe IV 10 ml UD PRN Administration SALINE FLUSH Lab / Micro Data 09/19/24 05:00 09/19/24 05:00 Labs: Laboratory Results - last 24 hr 09/18/24 20:41: POC Glucose 212 H 09/19/24 05:00: WBC 6.6, RBC 3.10 L, Hgb 9.5 L, Hct 29.6 L, MCV 95.5 H, MCH 30.6, MCHC 32.1, RDW Std Deviation 47.8 H, RDW Coeff of Elida 13.7, Plt Count 311, MPV 9.8, Immature Gran % (Auto) 0.600, Neut % (Auto) 69.0, Lymph % (Auto) 16.1 L, [place] % (Auto) 7.6, Eos % (Auto) 5.6 H, Baso % (Auto) 1.1 H, Absolute Neuts (auto) 4.6, Absolute Lymphs (auto) 1.06, Nucleated RBC % 0, Sodium 137, Potassium 4.2, Chloride 108 H, Carbon Dioxide 26.0, Anion Gap 3 L, BUN 22 H, Creatinine 1.09, Estim Creat Clear Calc 60.51, Est GFR (MDRD) Af Amer 84, Est GFR (MDRD) Non-Af 70, BUN/Creatinine Ratio 20.2 H, Glucose 159 H, Calcium 8.0 L 09/19/24 11:31: POC Glucose 194 H 09/19/24 15:47: POC Glucose 261 H Micro: Microbiology 09/17/24 14:32 Urine Catheter - Lau Urine Culture - Preliminary Klebsiella pneumoniae sp pneum Assessment and Plan . Assessment and plan: UTI Severe Sepsis due to Klebsiella UTI Volume Depletion Protein Calorie Malnutrition -wean levohped as tolerated to keep MAP > 65 -cont current abx and adjust as culture data matures -if pressor requirements rise can consider stress dose steroids, for now we can probably avoid it Critical Care Time: 31 minutes The entirety of this encounter was done via Telemedicine Physical Exam Const alert and no apparent distress General Appearance: cooperative and comfortable HEENT normocephalic Eyes no scleral icterus Neck General: normal visual inspection Chest inspection of chest normal Chest: symmetrical chest wall rise Resp normal respiratory effort and normal air movement Effort and Inspection: able to speak in complete sentences Cardio regular rate and regular rhythm GI normal to inspection, nondistended, normoactive bowel sounds and non-tender Skin Skin Narrative: dry skin Neuro oriented x3, moves all extremities and no focal motor deficits Subjective Subjective Feeling better. Able to get to chair with assistance. Taking some PO.
[2024-09-19] MEDS: Albuterol 2.5 MG/3 ML VIAL.NEB. INHALATION (19:20)
--- NOTE | 2024-09-19 20:27 | PCM.HOSP.N ---
Hospitalist Note Patient with wheezing intermittently through the day per day shift RN, requesting aerosol treatment. [place] improved with albuterol, asking for scheduled and PRN. Does have tobacco use history. Will add regimen.
[2024-09-19] MEDS: Ipratropium/Albuterol Sulfate 3 ML AMPUL.NEB INHALATION (22:22)
[2024-09-19] MEDS: 0.9% Normal Saline (500mL Bag) 500 ML 999 ML IV (23:25)
[2024-09-19 23:32] LABS: Bedside Glucose 178 mg/dL (74-106)
[2024-09-20] VITALS (53 sets, daily range): BP systolic 71–131; BP diastolic 43–76; PULSE 59–92; RESP 16–29; TEMP 36.6–37.3; O2SAT 93–99; BMI 28.8
[2024-09-20] MEDS: Piperacil/Tazobactam 3.375 GM in 0.9% Normal Saline (50mL MB+) 50 ML IV ×3 (05:39→21:15)
[2024-09-20] MEDS: Menthol/Lanolin/Calamine/Znox 113 GM Tube 1 APPLIC TOPICAL ×3 (05:40→21:13)
[2024-09-20 05:46] LABS: Absolute Lymphocyte Count 1.29 X10^3/uL (0.83-4.51); Basophil# 0.08 X10^3/uL; Basophil% 1.1 % (0-1); Eosinophil# 0.48 X10^3/uL; Eosinophils% 6.4 % (0-5); Hematocrit 31.3 % (40-54); Hemoglobin 10.2 g/dL (13.0-16.5); Lymphocyte # 1.29 X10^3/ul (0.83-4.51); Lymphocyte % 17.2 % (19-41); Mean Corp Hgb Conc 32.6 g/dL (32-36); Mean Corpuscular Hgb 30.5 pg (27.0-32.0); Mean Corpuscular Volume 93.7 fL (80-94); Mean Platelet Vol. 9.3 fl (6.2-12.0); Monocyte# 0.59 X10^3/uL; Monocyte% 7.8 % (0-10); NRBC Flagged by Analyzer 0 % (0-5); Neutrophil % 66.4 % (47-70); Platelet Count 349 K/mm3 (150-450); RBC Distribution Width CV 13.5 % (11.6-14.6); RBC Distribution Width SD 46.2 fl (35.1-43.9); Red Blood Count 3.34 M/mm3 (4.6-6.2); White Blood Count 7.5 K/mm3 (4.4-11.0)
--- NOTE | 2024-09-20 05:55 | RAD_ITS ---
EXAM: XR CHEST, 1 VIEW CLINICAL INDICATION: Dyspnea TECHNIQUE: Frontal view of the chest. COMPARISON: 09/18/2024. FINDINGS: LUNGS AND PLEURAL SPACES: Mild atelectasis left lung base that may be improved compared to the previous exam. No pneumothorax. No effusion. HEART: Status post coronary artery bypass graft. MEDIASTINUM: Central airways and mediastinal contour are unremarkable. BONES/JOINTS: Sternal wires. Right total shoulder arthroplasty. Components appear well seated. No acute fracture. SOFT TISSUES: Unremarkable. RAD/Chest 1 View (Portable) IMPRESSION: Mild atelectasis left lung base that may be improved compared to the previous exam. Electronically Signed: Zohaib Sotelo MD at 6:13 EST ,
--- NOTE | 2024-09-20 05:57 | PN.CC_ITS ---
Assessment & Plan Assessment/Plan (1) Septic shock: PLAN: Plan RECOMMENDATIONS: 1. Continue antimicrobials as ordered. 2. Continue to wean Levophed as tolerated. 3. Start scheduled midodrine as ordered. 4. Continue bronchodilator therapy. 5. Continue appropriate DVT prophylaxis. IMPRESSIONS: 1. Septic shock Secondary to Klebsiella pneumonia urinary tract source of infection. The patient remains on low-dose Levophed, which is currently being weaned. In the interim, we will start scheduled midodrine 3 times daily. The patient appears adequately volume resuscitated. 2. History of hypertension/diabetes mellitus/generalized weakness and debility/GERD/history of tobacco dependency Complicates care, management, recovery and prognosis. Continue home medications as indicated. Continue scheduled bronchodilators as tolerated. TIME: 32 minutes of critical care time, independent of procedures, was spent addressing the patient's septic shock secondary to Klebsiella pneumonia UTI, review of all data and collaboration with the care team. Subjective Subjective The patient was seen and examined at the bedside this morning. Events from the last 24 hours have been reviewed. The patient remains on low-dose Levophed at 1 mcg/min to maintain hemodynamic stability. Oxygen saturations are stable on room air. Although the patient does have some residual fatigue still, he reported overall improvement in the last day. White blood cell count is normal. Hemoglobin is stable at 10.2 g/dL. Creatinine is within normal limits. Objective Data Objective Data The patient's most recent lab work, culture data and imaging studies have all been personally reviewed. Urine culture was positive for Klebsiella pneumonia. Vital Signs: Vital Signs Temp Pulse Resp BP Pulse Ox O2 Del Method O2 Flow Rate 98.4 F 63 23 H 108/61 95 Room Air 2 09/20/24 05:00 09/20/24 05:00 09/20/24 05:00 09/20/24 05:15 09/20/24 05:00 09/20/24 05:00 09/20/24 04:00 Oxygen Flow Rate (L/min) 2 Oxygen Delivery Method Room Air Weight: 194 lb 3.636 oz Body Mass Index (BMI) 28.8 Intake & Output: Intake and Output for Last 24 Hours 09/18/24 09/19/24 09/20/24 23:59 23:59 23:59 Intake Total 4782.94 / 4784.82 1519.77 / 1519.77 77.25 / 77.25 Output Total 2605 / 2605 2900 / 2900 Balance 2177.94 / 2179.82 -1380.23 / -1380.23 . / . Lab / Micro Data Attestation: I reviewed the patient's lab results. 09/20/24 05:38 09/20/24 05:38 Labs: Laboratory Results - last 24 hr 09/19/24 11:31: POC Glucose 194 H 09/19/24 15:47: POC Glucose 261 H 09/19/24 20:50: POC Glucose 178 H 09/20/24 05:38: WBC 7.5, RBC 3.34 L, Hgb 10.2 L, Hct 31.3 L, MCV 93.7, MCH 30.5, MCHC 32.6, RDW Std Deviation 46.2 H, RDW Coeff of Elida 13.5, Plt Count 349, MPV 9.3, Immature Gran % (Auto) 1.100 H, Neut % (Auto) 66.4, Lymph % (Auto) 17.2 L, [place] % (Auto) 7.8, Eos % (Auto) 6.4 H, Baso % (Auto) 1.1 H, Absolute Neuts (auto) 5.0, Absolute Lymphs (auto) 1.29, Nucleated RBC % 0 Micro: Microbiology 09/17/24 14:32 Urine Catheter - Lau Urine Culture - Preliminary Klebsiella pneumoniae sp pneum Physical Exam Const alert and no apparent distress Constitutional Narrative: Sitting in bedside recliner. General Appearance: cooperative HEENT normocephalic and head/scalp atraumatic Eyes PERRL, EOMs intact bilaterally and conjunctivae normal Neck supple General: trachea midline Chest inspection of chest normal Resp normal respiratory effort Auscultation: Negative for rales, rhonchi or wheezes Cardio regular rate and regular rhythm GI normal to inspection, nondistended, normoactive bowel sounds Extremity no clubbing, cyanosis or edema Skin no rashes or lesions noted Neuro CN's II-XII intact bilaterally, moves all extremities and no focal motor deficits Psych cooperative and affect normal Charges/Coding Procedures Hospitalists Procedures: 43711 Critical Care 1st Hr
[2024-09-20 06:01] LABS: Anion Gap 4 (5-15); BUN 23 mg/dL (7-18); BUN/Creat Ratio 20.2 RATIO (10-20); Calcium,Total 8.3 mg/dL (8.5-10.1); Chloride 106 mmol/L (98-107); Creatinine, Serum 1.14 mg/dL (0.70-1.30); EST Glomerular Filtration Rate 66 mL/min (>60); Est Glom Filt Rate - Afr Amer 80 mL/min (>60); Estimated Creatinine Clearance 57.62 ml/min; Glucose 161 mg/dL (74-106); Potassium 4.4 mmol/L (3.5-5.1); Sodium Level 137 mmol/L (136-145)
[2024-09-20] MEDS: Ipratropium/Albuterol Sulfate 3 ML AMPUL.NEB INHALATION ×4 (07:34→23:10)
[2024-09-20] MEDS: Heparin Injection (Vial) 5,000 UNIT/ML VIAL 5000 UNIT SC ×2 (07:52→21:13)
[2024-09-20] MEDS: Aspirin 81 MG TAB.CHEW PO (07:52)
[2024-09-20 08:29] LABS: Bedside Glucose 143 mg/dL (74-106)
--- NOTE | 2024-09-20 09:19 | CASEMGMT ---
Addendum entered by Shae Jones 09/20/24 09:57: Discharge Planning [facility] has accepted. Original Note: Discharge Planning Referral sent via [facility] to [facility]. Shae Jones DC Planning Asst.
--- NOTE | 2024-09-20 09:44 | PN_ITS ---
Subjective Subjective Patient seen and examined. He had no active complaints. He remains on levophed drip and is having difficulty being weaned off. Review of systems is otherwise negative. Objective Data Objective Data Vital Signs: Vital Signs Temp Pulse Resp BP Pulse Ox O2 Del Method O2 Flow Rate 98.1 F 86 26 H 106/70 94 Room Air 0.5 09/20/24 06:00 09/20/24 08:00 09/20/24 08:00 09/20/24 08:00 09/20/24 08:00 09/20/24 08:00 09/20/24 07:34 Oxygen Flow Rate (L/min) 0.5 Oxygen Delivery Method Room Air Weight: 194 lb 3.636 oz Body Mass Index (BMI) 28.8 Intake & Output: Intake and Output for Last 24 Hours 09/18/24 09/19/24 09/20/24 23:59 23:59 23:59 Intake Total 4782.94 / 4784.82 1519.77 / 1519.77 177.70 / 177.70 Output Total 2605 / 2605 2900 / 2900 1500 / 1500 Balance 2177.94 / 2179.82 -1380.23 / -1380.23 -1322.30 / -1322.30 Lab / Micro Data 09/20/24 05:38 09/20/24 05:38 Labs: Laboratory Results - last 24 hr 09/19/24 11:31: POC Glucose 194 H 09/19/24 15:47: POC Glucose 261 H 09/19/24 20:50: POC Glucose 178 H 09/20/24 05:38: WBC 7.5, RBC 3.34 L, Hgb 10.2 L, Hct 31.3 L, MCV 93.7, MCH 30.5, MCHC 32.6, RDW Std Deviation 46.2 H, RDW Coeff of Elida 13.5, Plt Count 349, MPV 9.3, Immature Gran % (Auto) 1.100 H, Neut % (Auto) 66.4, Lymph % (Auto) 17.2 L, [place] % (Auto) 7.8, Eos % (Auto) 6.4 H, Baso % (Auto) 1.1 H, Absolute Neuts (auto) 5.0, Absolute Lymphs (auto) 1.29, Nucleated RBC % 0, Sodium 137, Potassium 4.4, Chloride 106, Carbon Dioxide 27.0, Anion Gap 4 L, BUN 23 H, Creatinine 1.14, Estim Creat Clear Calc 57.62, Est GFR (MDRD) Af Amer 80, Est GFR (MDRD) Non-Af 66, BUN/Creatinine Ratio 20.2 H, Glucose 161 H, Calcium 8.3 L 09/20/24 07:44: POC Glucose 143 H Micro: Microbiology 09/17/24 14:32 Urine Catheter - Lau Urine Culture - Final Klebsiella pneumoniae sp pneum Radiography Diagnostic Testing: Radiology Impression Chest X-Ray 09/20/24 05:55 IMPRESSION: Mild atelectasis left lung base that may be improved compared to the previous exam. Electronically Signed: Zohaib Sotelo MD at 6:13 EST , Physical Exam Const alert, oriented x3, no apparent distress, healthy appearing and well nourished Constitutional Narrative: Patient appears frail and ill General Appearance: cooperative, well kempt and well developed Orientation / Consciousness: awake, oriented to person, oriented to place and oriented to time HEENT normocephalic, head/scalp atraumatic, moist oral mucous membranes and oropharynx normal Eyes PERRL, EOMs intact bilaterally and conjunctivae normal Neck no lymphadenopathy, supple, no JVD, thyroid normal and no carotid bruits General: trachea midline Lymph Lymphatic: no lymphadenopathy noted and no lymphedema noted Resp normal respiratory effort, normal air movement, no retractions, no use of accessory muscles and clear to auscultation bilaterally Auscultation: Negative for rales, rhonchi or wheezes Cardio regular rate, regular rhythm, S1 normal heart sound, S2 normal heart sound, no murmurs, no rub and no gallops GI normal to inspection, nondistended, normoactive bowel sounds, soft to palpation, non-tender and non-distended Extremity Extremity Narrative: superficial ulcerations on lower extremities. Skin Skin Narrative: superficial ulcerations on lower extremities Neuro oriented x3, CN's II-XII intact bilaterally, no focal motor deficits and no sensory deficits noted Sensorium / Orientation: awake, alert, oriented to person and oriented to place Speech: speech normal Motor Exam: strength 5/5 throughout and general weakness Psych thought process normal, cooperative and affect normal Appearance: appropriate Mood & Affect: flat affect Assessment & Plan Assessment/Plan (1) Septic shock: (2) Complicated urinary tract infection: PLAN: Plan #Septic shock due to UTI * Patient on IV Zosyn. * urine cultures growing Klebsiella pneumoniae * blood cultures pending. * still remains on levophed * Critical care on board. Titrate Levophed to maintain MAP more than 65. #Lactic acidosis: Likely due to dehydration and septic shock, now resolved. #Debility and weakness due to septic shock: PT OT on board. Fall precautions. #Hypertension: Atenolol and lisinopril on hold on hold due to septic shock #Type 2 diabetes mellitus: Metformin held due to lactic acidosis and septic shock. Insulin sliding scale. Accu-Cheks ACHS #DVT prophylaxis: Heparin Charges/Coding Visit Charges Inpatient E&M: 32655 [facility] Hosp L3
[2024-09-20] MEDS: Midodrine HCl 5 MG Tablet 10 MG PO ×3 (10:04→16:38)
--- NOTE | 2024-09-20 10:11 | CASEMGMT ---
Social Work- SW received notice that pt would like referral to [facility]; [facility] notified. Pt remains ICU status. SW remains available to follow. FRANKI Gregory
--- NOTE | 2024-09-20 11:09 | WOUNDNOTE ---
was asked to see patient for wounds to bilateral lower legs. removed the CAITLYN wraps and dressings. there was no drainage noted. no open wounds noted. patient does have patches of dry skin. some dry skin was able to be easily removed. no erythema noted. some mild edema noted. washed legs and feet with soap and water. pat dry. applied kerlix and CAITLYN wraps. pt tolerated well. see skin/wound photos.
--- NOTE | 2024-09-20 11:21 | WOUNDNOTE ---
skin photo: left lower leg
--- NOTE | 2024-09-20 11:22 | WOUNDNOTE ---
skin photo: right lower leg
--- NOTE | 2024-09-20 11:22 | WOUNDNOTE ---
wound photo: helena cleft
[2024-09-20 11:23] LABS: Bedside Glucose 165 mg/dL (74-106)
[2024-09-20] MEDS: Insulin Lispro 100 UNIT/ML INSULN.PEN SC ×3 (11:53→21:23)
[2024-09-20 17:00] LABS: Bedside Glucose 221 mg/dL (74-106)
[2024-09-20] MEDS: 0.9% Saline Lock 10 ML Syringe IV (21:28)
[2024-09-20 22:41] LABS: Bedside Glucose 203 mg/dL (74-106)
[2024-09-21] VITALS (36 sets, daily range): BP systolic 79–125; BP diastolic 49–88; PULSE 62–96; RESP 11–25; TEMP 36.3–36.7; O2SAT 91–99; BMI 28.4
[2024-09-21] MEDS: 0.9% Saline Lock 10 ML Syringe IV ×2 (03:56→21:22)
[2024-09-21 04:16] LABS: Absolute Lymphocyte Count 1.46 X10^3/uL (0.83-4.51); Absolute Neutrophil Count 5.5 X10^3/uL (2.0-7.7); Basophil# 0.09 X10^3/uL; Basophil% 1.1 % (0-1); Eosinophil# 0.54 X10^3/uL; Eosinophils% 6.6 % (0-5); Hematocrit 29.7 % (40-54); Lymphocyte # 1.46 X10^3/ul (0.83-4.51); Lymphocyte % 17.9 % (19-41); Mean Corp Hgb Conc 33.7 g/dL (32-36); Mean Corpuscular Hgb 31.4 pg (27.0-32.0); Mean Corpuscular Volume 93.4 fL (80-94); Mean Platelet Vol. 9.5 fl (6.2-12.0); Monocyte# 0.48 X10^3/uL; Monocyte% 5.9 % (0-10); NRBC Flagged by Analyzer 0 % (0-5); Neutrophil % 67.4 % (47-70); Platelet Count 373 K/mm3 (150-450); RBC Distribution Width CV 13.8 % (11.6-14.6); Red Blood Count 3.18 M/mm3 (4.6-6.2); White Blood Count 8.2 K/mm3 (4.4-11.0)
[2024-09-21 04:26] LABS: Anion Gap 4 (5-15); BUN 29 mg/dL (7-18); BUN/Creat Ratio 24.2 RATIO (10-20); Calcium,Total 8.4 mg/dL (8.5-10.1); Chloride 105 mmol/L (98-107); EST Glomerular Filtration Rate 62 mL/min (>60); Est Glom Filt Rate - Afr Amer 75 mL/min (>60); Estimated Creatinine Clearance 54.74 ml/min; Glucose 147 mg/dL (74-106); Potassium 4.7 mmol/L (3.5-5.1); Sodium Level 138 mmol/L (136-145)
[2024-09-21] MEDS: Piperacil/Tazobactam 3.375 GM in 0.9% Normal Saline (50mL MB+) 50 ML IV ×3 (05:46→21:17)
--- NOTE | 2024-09-21 06:06 | PCM.PN.INT ---
Assessment & Plan Assessment/Plan (1) Septic shock: PLAN: Plan RECOMMENDATIONS: 1. Continue antimicrobials as ordered. 2. Administer additional IV fluid bolus as ordered. 3. Continue scheduled midodrine as ordered. 4. Continue bronchodilator therapy. 5. Continue appropriate DVT prophylaxis. IMPRESSIONS: 1. Septic shock Secondary to Klebsiella pneumonia urinary tract source of infection. Although the patient has been weaned from vasopressor support, his blood pressures remain somewhat borderline. Therefore, in addition to continuing midodrine, will administer IV fluid bolus this morning. Otherwise, continue antimicrobial therapy as ordered. 2. History of hypertension/diabetes mellitus/generalized weakness and debility/GERD/history of tobacco dependency Complicates care, management, recovery and prognosis. Continue home medications as indicated. Continue scheduled bronchodilators as tolerated. This note was generated with [employer] dictation software. It may contain incorrect words, spelling, and punctuation that were not noted in checking the note before signing. Subjective Subjective The patient was seen and examined at the bedside this morning. Events from the last 24 hours have been reviewed. The patient is currently afebrile. Although his Levophed was weaned off early this morning, his blood pressure still remains somewhat borderline. He remains on scheduled midodrine. White blood cell count is normal. Creatinine remains within normal limits. Objective Data Objective Data The patient's most recent lab work, culture data and imaging studies have all been personally reviewed. Urine culture was positive for Klebsiella pneumonia. Vital Signs: Vital Signs Temp Pulse Resp BP Pulse Ox O2 Del Method O2 Flow Rate 98 F 63 22 H 112/68 96 Nasal Cannula 2 09/21/24 04:00 09/21/24 05:00 09/21/24 05:00 09/21/24 05:00 09/21/24 05:00 09/21/24 05:00 09/21/24 05:00 Oxygen Flow Rate (L/min) 2 Oxygen Delivery Method Nasal Cannula Weight: 194 lb 3.636 oz Body Mass Index (BMI) 28.8 Intake & Output: Intake and Output for Last 24 Hours 09/19/24 09/20/24 09/21/24 23:59 23:59 23:59 Intake Total 1519.77 / 1519.77 651.48 / 773.38 181.4 / 181.4 Output Total 2900 / 2900 2750 / 3300 550 / 550 Balance -1380.23 / -1380.23 -2098.52 / -2526.62 -368.6 / -368.6 Lab / Micro Data Attestation: I reviewed the patient's lab results. 09/21/24 03:50 09/21/24 03:50 Labs: Laboratory Results - last 24 hr 09/20/24 07:44: POC Glucose 143 H 09/20/24 11:04: POC Glucose 165 H 09/20/24 16:37: POC Glucose 221 H 09/20/24 21:22: POC Glucose 203 H 09/21/24 03:50: WBC 8.2, RBC 3.18 L, Hgb 10.0 L, Hct 29.7 L, MCV 93.4, MCH 31.4, MCHC 33.7, RDW Std Deviation 47.0 H, RDW Coeff of Elida 13.8, Plt Count 373, MPV 9.5, Immature Gran % (Auto) 1.100 H, Neut % (Auto) 67.4, Lymph % (Auto) 17.9 L, [place] % (Auto) 5.9, Eos % (Auto) 6.6 H, Baso % (Auto) 1.1 H, Absolute Neuts (auto) 5.5, Absolute Lymphs (auto) 1.46, Nucleated RBC % 0, Sodium 138, Potassium 4.7, Chloride 105, Carbon Dioxide 29.0, Anion Gap 4 L, BUN 29 H, Creatinine 1.20, Estim Creat Clear Calc 54.74, Est GFR (MDRD) Af Amer 75, Est GFR (MDRD) Non-Af 62, BUN/Creatinine Ratio 24.2 H, Glucose 147 H, Calcium 8.4 L Micro: Microbiology 09/19/24 17:15 Wound - Leg Gram Stain - Final 09/17/24 14:32 Urine Catheter - Lau Urine Culture - Final Klebsiella pneumoniae sp pneum Radiography Diagnostic Testing: Radiology Impression Chest X-Ray 09/20/24 05:55 IMPRESSION: Mild atelectasis left lung base that may be improved compared to the previous exam. Electronically Signed: Zohaib Sotelo MD at 6:13 EST , Physical Exam Const alert and no apparent distress General Appearance: cooperative HEENT normocephalic and head/scalp atraumatic Eyes PERRL, EOMs intact bilaterally and conjunctivae normal Neck supple General: trachea midline Chest inspection of chest normal Resp normal respiratory effort Auscultation: Negative for rales, rhonchi or wheezes Cardio regular rate and regular rhythm GI normal to inspection, nondistended, normoactive bowel sounds Extremity no clubbing, cyanosis or edema Skin no rashes or lesions noted Neuro CN's II-XII intact bilaterally, moves all extremities and no focal motor deficits Psych cooperative and affect normal Charges/Coding Visit Charges Inpatient E&M: 61914 Subs Hosp L3
[2024-09-21 06:44] LABS: Bedside Glucose 135 mg/dL (74-106)
[2024-09-21] MEDS: Ipratropium/Albuterol Sulfate 3 ML AMPUL.NEB INHALATION ×5 (06:53→23:10)
[2024-09-21] MEDS: Midodrine HCl 5 MG Tablet 10 MG PO ×3 (07:26→17:08)
[2024-09-21] MEDS: Heparin Injection (Vial) 5,000 UNIT/ML VIAL 5000 UNIT SC ×2 (07:26→21:16)
[2024-09-21] MEDS: Aspirin 81 MG TAB.CHEW PO (07:26)
[2024-09-21] MEDS: 0.9% Normal Saline (1000mL) 1,000 ML 999 ML IV (08:52)
--- NOTE | 2024-09-21 09:06 | WOUNDNOTE ---
In to reassess bilateral lower legs and feet. removed the CAITLYN wraps and dressings. no open areas or drainage noted. washed legs and feet with soap and water. pat dry. reapplied the CAITLYN wraps. pt tolerated well.
--- NOTE | 2024-09-21 10:17 | PN_ITS ---
Subjective Subjective Patient seen and examined. he had no active complaints. He had just been weaned off the levophed drip this morning. Review of systems is otherwise negative. Objective Data Objective Data Vital Signs: Vital Signs Temp Pulse Resp BP Pulse Ox O2 Del Method O2 Flow Rate 97.3 F L 66 18 104/61 96 Room Air 2 09/21/24 08:00 09/21/24 09:00 09/21/24 09:00 09/21/24 09:00 09/21/24 09:00 09/21/24 09:00 09/21/24 07:00 Oxygen Flow Rate (L/min) 2 Oxygen Delivery Method Room Air Weight: 191 lb 12.835 oz Body Mass Index (BMI) 28.4 Intake & Output: Intake and Output for Last 24 Hours 09/19/24 09/20/24 09/21/24 23:59 23:59 23:59 Intake Total 1519.77 / 1519.77 651.48 / 773.38 335.2 / 335.2 Output Total 2900 / 2900 2750 / 3300 1600 / 1600 Balance -1380.23 / -1380.23 -2098.52 / -2526.62 -1264.8 / -1264.8 Lab / Micro Data 09/21/24 03:50 09/21/24 03:50 Labs: Laboratory Results - last 24 hr 09/20/24 11:04: POC Glucose 165 H 09/20/24 16:37: POC Glucose 221 H 09/20/24 21:22: POC Glucose 203 H 09/21/24 03:50: WBC 8.2, RBC 3.18 L, Hgb 10.0 L, Hct 29.7 L, MCV 93.4, MCH 31.4, MCHC 33.7, RDW Std Deviation 47.0 H, RDW Coeff of Elida 13.8, Plt Count 373, MPV 9.5, Immature Gran % (Auto) 1.100 H, Neut % (Auto) 67.4, Lymph % (Auto) 17.9 L, [place] % (Auto) 5.9, Eos % (Auto) 6.6 H, Baso % (Auto) 1.1 H, Absolute Neuts (auto) 5.5, Absolute Lymphs (auto) 1.46, Nucleated RBC % 0, Sodium 138, Potassium 4.7, Chloride 105, Carbon Dioxide 29.0, Anion Gap 4 L, BUN 29 H, Creatinine 1.20, Estim Creat Clear Calc 54.74, Est GFR (MDRD) Af Amer 75, Est GFR (MDRD) Non-Af 62, BUN/Creatinine Ratio 24.2 H, Glucose 147 H, Calcium 8.4 L 09/21/24 05:51: POC Glucose 135 H Micro: Microbiology 09/19/24 17:15 Wound - Leg Gram Stain - Final 09/17/24 14:32 Urine Catheter - Lau Urine Culture - Final Klebsiella pneumoniae sp pneum Physical Exam Const alert, oriented x3, no apparent distress, healthy appearing and well nourished General Appearance: cooperative, well kempt and well developed Orientation / Consciousness: awake, oriented to person, oriented to place and oriented to time HEENT normocephalic, head/scalp atraumatic, moist oral mucous membranes and oropharynx normal Eyes PERRL, EOMs intact bilaterally and conjunctivae normal Neck no lymphadenopathy, supple, no JVD, thyroid normal and no carotid bruits General: trachea midline Lymph Lymphatic: no lymphadenopathy noted and no lymphedema noted Resp normal respiratory effort, normal air movement, no retractions, no use of accessory muscles and clear to auscultation bilaterally Auscultation: Negative for rales, rhonchi or wheezes Cardio regular rate, regular rhythm, S1 normal heart sound, S2 normal heart sound, no murmurs, no rub and no gallops GI normal to inspection, nondistended, normoactive bowel sounds, soft to palpation, non-tender and non-distended Extremity Extremity Narrative: superficial ulcerations on lower extremities. General Extremity: no tenderness to palpation of joints or extremities Skin no rashes or lesions noted Skin Narrative: superficial ulcerations on lower extremities General Skin Exam: no breakdown Neuro oriented x3, CN's II-XII intact bilaterally, no focal motor deficits and no sensory deficits noted Sensorium / Orientation: awake, alert, oriented to person and oriented to place Speech: speech normal Motor Exam: general weakness Psych thought process normal, cooperative and affect normal Appearance: appropriate Mood & Affect: flat affect Assessment & Plan Assessment/Plan (1) Septic shock: (2) Complicated urinary tract infection: PLAN: Plan #Septic shock due to UTI * Patient on IV Zosyn. * urine cultures growing Klebsiella pneumoniae * blood cultures pending. * weaned off of levophed today * Critical care on board. Titrate Levophed to maintain MAP more than 65. #Lactic acidosis: Likely due to dehydration and septic shock. Resovled. #Debility and weakness due to septic shock: PT OT on board. Fall precautions. #Hypertension: Atenolol and lisinopril on hold on hold due to septic shock #Type 2 diabetes mellitus: Metformin held due to lactic acidosis and septic shock. Insulin sliding scale. Accu-Cheks ACHS #DVT prophylaxis: Heparin Charges/Coding Visit Charges Inpatient E&M: 46032 Subs Hosp L2
--- NOTE | 2024-09-21 10:32 | CASEMGMT ---
Addendum entered by Erica Martinez 09/21/24 12:41: Social Work Pt's brother did call pt to update him, SW attempted to meet w/pt this afternoon and he is asleep. SW will continue to follow, plan will continue to be for [facility] pending when pt is medically ready and precert. NINFA Ceballos Addendum entered by Erica Martinez 09/21/24 12:10: Social Work SW spoke w/pt. He states he changed his insurance to [employer] in January of 2024, and that [employer] covers everything. SW explained called insurance and was told this is only his prescription plan. SW asked when pt goes to the doctor, does he use [employer], pt states yes. He does not have his card on him, unfortunately. He advised for SW to call his brother as his brother Steve may know. Pt defers to Steve for decisions. ALEXANDRIA called pt's brother Steve Sanders, introduced self, role of SW in hospital. ALEXANDRIA spoke initially to Steve about pt's discharge plan. Steve explains he is pt's POA(will fax or email documents) and all decisions should go through him. 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 Steve states though pt can answer questions and is alert and oriented, he states pt has psychological issues that are hidden. He states there is nothing that can be done about it at this point. He states the pt has been hoarding for about 15 years, has not showered in a year. Steve states he is sending a team of people to his home to clean it up, including Steve's daughter Galina(pt's niece). He states pt needs to go to rehab to get stronger and so he can get the house cleaned up. Steve's senior care goal is to get pt to [place] where he lives, so he can take care of him, but explains he has to go slow. It took Steve two days to convince pt to come to the hospital. ALEXANDRIA explained that we are looking at rehab for pt, aware pt wanted to go to [facility], but it does not appear that they are in network w/pt's insurance. SW explained the process of getting precert for pt going somewhere, and that SW is trying to get clarification on his insurance however. Pt's brother not certain either. He will ask Galina, pt's niece to find the insurance card when she is here and bring it in. SW explained will call [facility] to see if they can offer any information. Pt's brother does state however pt has no assets so would need to go somewhere that takes his insurance. SW called [facility], spoke to Jacqueline in Dr. Peña's office. She states they have [employer] listed as pt's insurance, and the insurance utilizes the [employer] network. The policy number is [id number]. SW called our financial dept back, left a message for Ashleigh with this information. SW also sent the information to [facility] via [employer]. ALEXANDRIA called pt's brother Steve back, let him know we found the policy number through [facility]. He also came across that pt has [employer]. ALEXANDRIA did offer to email the list of SNF from [facility] to Steve to choose SNF options. Steve is fine with whatever we choose. ALEXANDRIA explained we will stay w[facility] since this is the choice pt made. NINFA Ceballos Original Note: Social Work Pt informed RN that he would like to go to [facility]. SW called [facility], spoke w/Melinda, she states they do not work w/pt's insurance. SW spoke w/pt, let him know that [facility] has accepted him, but was informed he would prefer to go to [facility]CU if possible. Pt confirmed that he would like to go to TCU, SW explained they do not take his insurance. Pt asked the cost of TCU, SW explained it is $660/day. Pt states he is going to speak to his brother as he really wants to stay here for rehab. SW offered to call pt's insurance to find out his benefits, to see if he has any out of network benefits. SW called [employer], used the automated system, and was told pt is ineligible. ALEXANDRIA called back, spoke w/a passenger representative. SW informed this [employer] plan is only a prescription benefit. ALEXANDRIA called registration, spoke w/Ashleigh. It is unclear what pt's insurance company is. Pt has [facility] Medicaid that covers the premiums, but it is not clear which insurance plan pt has, it seems he made a change in January of 2024. SW will speak w/pt about his benefits. NINFA Ceballos
[2024-09-21] MEDS: Insulin Lispro 100 UNIT/ML INSULN.PEN SC ×2 (11:29→17:08)
[2024-09-21] MEDS: Menthol/Lanolin/Calamine/Znox 113 GM Tube 1 APPLIC TOPICAL (11:30)
[2024-09-21 11:50] LABS: Bedside Glucose 187 mg/dL (74-106)
--- NOTE | 2024-09-21 13:58 | CASEMGMT ---
Social Work Pt's brother emailed A[place]ANDRIA the full insurance information: Plan: [employer]/Chinyere Lara. ID #:[id number], Group #: [id number]. ALEXANDRIA gave the rest of this information to Ashleigh in our financial dept. SW spoke w/pt, he had spoken with his brother already. Pt aware we figured out his insurance, and knows T[facility] is not an option. He is still agreeable for [facility] when medically ready. QUINTEN Ceballos
[2024-09-21 17:26] LABS: Bedside Glucose 164 mg/dL (74-106)
[2024-09-21] MEDS: Acetaminophen 325 MG Tablet 650 MG PO (21:17)
[2024-09-21 21:42] LABS: Bedside Glucose 148 mg/dL (74-106)
[2024-09-22] VITALS (15 sets, daily range): BP systolic 80–133; BP diastolic 53–71; PULSE 64–79; RESP 15–21; TEMP 36.6–36.8; O2SAT 91–99; BMI 28.0
[2024-09-22] MEDS: Piperacil/Tazobactam 3.375 GM in 0.9% Normal Saline (50mL MB+) 50 ML IV ×3 (04:55→20:18)
[2024-09-22] MEDS: 0.9% Normal Saline (100mL Bag) 100 ML 15 ML IV (04:55)
[2024-09-22] MEDS: 0.9% Saline Lock 10 ML Syringe IV ×2 (04:55→13:59)
[2024-09-22 05:03] LABS: Basophil# 0.12 X10^3/uL; Basophil% 1.4 % (0-1); Eosinophil# 0.65 X10^3/uL; Eosinophils% 7.5 % (0-5); Hematocrit 32.6 % (40-54); Hemoglobin 10.6 g/dL (13.0-16.5); Lymphocyte % 16.1 % (19-41); Mean Corp Hgb Conc 32.5 g/dL (32-36); Mean Corpuscular Hgb 30.4 pg (27.0-32.0); Mean Corpuscular Volume 93.4 fL (80-94); Monocyte# 0.45 X10^3/uL; Monocyte% 5.2 % (0-10); NRBC Flagged by Analyzer 0 % (0-5); Neutrophil # 5.98 X10^3/uL (2.7-7.7); Neutrophil % 68.5 % (47-70); Platelet Count 401 K/mm3 (150-450); RBC Distribution Width CV 14.2 % (11.6-14.6); RBC Distribution Width SD 47.9 fl (35.1-43.9); Red Blood Count 3.49 M/mm3 (4.6-6.2); White Blood Count 8.7 K/mm3 (4.4-11.0)
[2024-09-22 05:18] LABS: Anion Gap 4 (5-15); BUN 28 mg/dL (7-18); Calcium,Total 8.8 mg/dL (8.5-10.1); Chloride 102 mmol/L (98-107); Creatinine, Serum 1.27 mg/dL (0.70-1.30); EST Glomerular Filtration Rate 58 mL/min (>60); Est Glom Filt Rate - Afr Amer 71 mL/min (>60); Estimated Creatinine Clearance 51.42 ml/min; Glucose 151 mg/dL (74-106); Potassium 4.3 mmol/L (3.5-5.1); Sodium Level 135 mmol/L (136-145)
--- NOTE | 2024-09-22 06:03 | PCM.PN.INT ---
Assessment & Plan Assessment/Plan (1) Septic shock: PLAN: Plan RECOMMENDATIONS: 1. Continue antimicrobials as ordered to complete 7 days of therapy. 2. Continue scheduled midodrine as ordered. 3. Continue bronchodilator therapy. 4. Continue appropriate DVT prophylaxis. 5. Will sign off from a critical care perspective. Please call with any additional questions. IMPRESSIONS: 1. Septic shock Secondary to Klebsiella pneumonia urinary tract source of infection. Although the patient initially required vasopressor support, he has been weaned off of Levophed and has remained hemodynamically stable for the last 24 hours. Plan to continue scheduled midodrine as ordered. Antimicrobials will be continued to complete 7 days of therapy. 2. History of hypertension/diabetes mellitus/generalized weakness and debility/GERD/history of tobacco dependency Complicates care, management, recovery and prognosis. Continue home medications as indicated. Continue scheduled bronchodilators as tolerated. This note was generated with [employer] dictation software. It may contain incorrect words, spelling, and punctuation that were not noted in checking the note before signing. Subjective Subjective The patient was seen and examined at the bedside this morning. Events from the last 24 hours have been reviewed. The patient is currently afebrile, hemodynamically stable and maintaining appropriate oxygen saturations on room air. The patient has been off of Levophed now for greater than 24 hours. White blood cell count remains normal. Hemoglobin and platelet count are stable. Creatinine remains within normal limits. Objective Data Objective Data The patient's most recent lab work, culture data and imaging studies have all been personally reviewed. Urine culture was positive for Klebsiella pneumonia. Vital Signs: Vital Signs Temp Pulse Resp BP Pulse Ox O2 Del Method O2 Flow Rate 97.9 F 75 18 91/63 93 Room Air 2 09/22/24 04:00 09/22/24 05:00 09/22/24 05:00 09/22/24 05:00 09/22/24 05:00 09/22/24 05:00 09/21/24 23:00 Oxygen Flow Rate (L/min) 2 Oxygen Delivery Method Room Air Weight: 191 lb 12.835 oz Body Mass Index (BMI) 28.4 Intake & Output: Intake and Output for Last 24 Hours 09/20/24 09/21/24 09/22/24 23:59 23:59 23:59 Intake Total 651.48 / 773.38 2185.2 / 2185.2 50 / 50 Output Total 2750 / 3300 3475 / 3475 350 / 350 Balance -2098.52 / -2526.62 -1289.8 / -1289.8 -300 / -300 Lab / Micro Data Attestation: I reviewed the patient's lab results. 09/22/24 04:53 09/22/24 04:53 Labs: Laboratory Results - last 24 hr 09/21/24 05:51: POC Glucose 135 H 09/21/24 11:28: POC Glucose 187 H 09/21/24 17:06: POC Glucose 164 H 09/21/24 21:16: POC Glucose 148 H 09/22/24 04:53: WBC 8.7, RBC 3.49 L, Hgb 10.6 L, Hct 32.6 L, MCV 93.4, MCH 30.4, MCHC 32.5, RDW Std Deviation 47.9 H, RDW Coeff of Elida 14.2, Plt Count 401, MPV 9.0, Immature Gran % (Auto) 1.300 H, Neut % (Auto) 68.5, Lymph % (Auto) 16.1 L, [place] % (Auto) 5.2, Eos % (Auto) 7.5 H, Baso % (Auto) 1.4 H, Absolute Neuts (auto) 6.0, Absolute Lymphs (auto) 1.40, Nucleated RBC % 0, Sodium 135 L, Potassium 4.3, Chloride 102, Carbon Dioxide 28.0, Anion Gap 4 L, BUN 28 H, Creatinine 1.27, Estim Creat Clear Calc 51.42, Est GFR (MDRD) Af Amer 71, Est GFR (MDRD) Non-Af 58 L, BUN/Creatinine Ratio 22.0 H, Glucose 151 H, Calcium 8.8 Micro: Microbiology 09/19/24 17:15 Wound - Leg Gram Stain - Final 09/17/24 14:32 Urine Catheter - Lau Urine Culture - Final Klebsiella pneumoniae sp pneum Radiography Diagnostic Testing: Radiology Impression Chest X-Ray 09/20/24 05:55 IMPRESSION: Mild atelectasis left lung base that may be improved compared to the previous exam. Electronically Signed: Zohaib Sotelo MD at 6:13 EST , Physical Exam Const alert and no apparent distress Constitutional Narrative: Sitting in bedside recliner. General Appearance: cooperative HEENT normocephalic and head/scalp atraumatic Eyes PERRL, EOMs intact bilaterally and conjunctivae normal Neck supple General: trachea midline Chest inspection of chest normal Resp normal respiratory effort Auscultation: Negative for rales, rhonchi or wheezes Cardio regular rate and regular rhythm GI normal to inspection, nondistended, normoactive bowel sounds Extremity no clubbing, cyanosis or edema Skin no rashes or lesions noted Neuro CN's II-XII intact bilaterally, moves all extremities and no focal motor deficits Psych cooperative and affect normal Charges/Coding Visit Charges Inpatient E&M: 13093 Subs Hosp L2
[2024-09-22] MEDS: Ipratropium/Albuterol Sulfate 3 ML AMPUL.NEB INHALATION ×4 (06:51→20:00)
[2024-09-22 08:37] LABS: Bedside Glucose 124 mg/dL (74-106)
[2024-09-22] MEDS: Midodrine HCl 5 MG Tablet 10 MG PO ×3 (09:12→17:16)
[2024-09-22] MEDS: Aspirin 81 MG TAB.CHEW PO (09:13)
[2024-09-22] MEDS: Heparin Injection (Vial) 5,000 UNIT/ML VIAL 5000 UNIT SC ×2 (09:13→20:20)
--- NOTE | 2024-09-22 10:03 | PN_ITS ---
Subjective Subjective Patient seen and examined. He had no active complaints. He has remained off of the Levophed. Review of systems otherwise negative. Review of symptoms otherwise negative. Objective Data Objective Data Vital Signs: Vital Signs Temp Pulse Resp BP Pulse Ox O2 Del Method O2 Flow Rate 97.9 F 64 19 H 88/60 L 99 Room Air 2 09/22/24 04:00 09/22/24 07:00 09/22/24 07:00 09/22/24 07:00 09/22/24 07:00 09/22/24 07:00 09/21/24 23:00 Oxygen Flow Rate (L/min) 2 Oxygen Delivery Method Room Air Weight: 191 lb 12.835 oz Body Mass Index (BMI) 28.4 Intake & Output: Intake and Output for Last 24 Hours 09/20/24 09/21/24 09/22/24 23:59 23:59 23:59 Intake Total 651.48 / 773.38 2185.2 / 2185.2 100 / 100 Output Total 2750 / 3300 3475 / 3475 350 / 350 Balance -2098.52 / -2526.62 -1289.8 / -1289.8 -250 / -250 Lab / Micro Data 09/22/24 04:53 09/22/24 04:53 Labs: Laboratory Results - last 24 hr 09/21/24 11:28: POC Glucose 187 H 09/21/24 17:06: POC Glucose 164 H 09/21/24 21:16: POC Glucose 148 H 09/22/24 04:53: WBC 8.7, RBC 3.49 L, Hgb 10.6 L, Hct 32.6 L, MCV 93.4, MCH 30.4, MCHC 32.5, RDW Std Deviation 47.9 H, RDW Coeff of Elida 14.2, Plt Count 401, MPV 9.0, Immature Gran % (Auto) 1.300 H, Neut % (Auto) 68.5, Lymph % (Auto) 16.1 L, [place] % (Auto) 5.2, Eos % (Auto) 7.5 H, Baso % (Auto) 1.4 H, Absolute Neuts (auto) 6.0, Absolute Lymphs (auto) 1.40, Nucleated RBC % 0, Sodium 135 L, Potassium 4.3, Chloride 102, Carbon Dioxide 28.0, Anion Gap 4 L, BUN 28 H, Creatinine 1.27, Estim Creat Clear Calc 51.42, Est GFR (MDRD) Af Amer 71, Est GFR (MDRD) Non-Af 58 L, BUN/Creatinine Ratio 22.0 H, Glucose 151 H, Calcium 8.8 09/22/24 08:18: POC Glucose 124 H Micro: Microbiology 09/19/24 17:15 Wound - Leg Gram Stain - Final 09/19/24 17:15 Wound - Leg Wound Culture - Preliminary Staphylococcus species 09/17/24 14:32 Urine Catheter - Lau Urine Culture - Final Klebsiella pneumoniae sp pneum Physical Exam Const alert, oriented x3, no apparent distress, healthy appearing and well nourished Constitutional Narrative: Patient appears frail and ill General Appearance: cooperative, well kempt and well developed Orientation / Consciousness: awake, oriented to person, oriented to place and oriented to time HEENT normocephalic, head/scalp atraumatic, moist oral mucous membranes and oropharynx normal Eyes PERRL, EOMs intact bilaterally and conjunctivae normal Neck no lymphadenopathy, supple, no JVD, thyroid normal and no carotid bruits General: trachea midline Lymph Lymphatic: no lymphadenopathy noted and no lymphedema noted Resp normal respiratory effort, normal air movement, no retractions, no use of accessory muscles and clear to auscultation bilaterally Auscultation: Negative for rales, rhonchi or wheezes Cardio regular rate, regular rhythm, S1 normal heart sound, S2 normal heart sound, no murmurs, no rub and no gallops GI normal to inspection, nondistended, normoactive bowel sounds, soft to palpation, non-tender and non-distended Extremity normal capillary refill, no clubbing, cyanosis or edema and no calf tenderness Extremity Narrative: superficial ulcerations on lower extremities. General Extremity: no tenderness to palpation of joints or extremities Skin Skin Narrative: superficial ulcerations on lower extremities General Skin Exam: no breakdown Neuro oriented x3, CN's II-XII intact bilaterally, no focal motor deficits and no sensory deficits noted Sensorium / Orientation: awake, alert, oriented to person and oriented to place Speech: speech normal Motor Exam: strength 5/5 throughout and general weakness Psych thought process normal, cooperative and affect normal Appearance: appropriate Mood & Affect: flat affect Assessment & Plan Assessment/Plan (1) Septic shock: (2) Complicated urinary tract infection: PLAN: Plan #Septic shock due to UTI * Patient on IV Zosyn. * urine cultures growing Klebsiella pneumoniae * blood cultures pending. * weaned off of levophed * now on Midodrine. BP still remains low at 88/60 this morning. Will monitor. * Critical care on board. Titrate Levophed to maintain MAP more than 65. #Lactic acidosis: Likely due to dehydration and septic shock. Resovled. #Debility and weakness due to septic shock: PT OT on board. Fall precautions. #Hypertension: Atenolol and lisinopril on hold on hold due to septic shock #Type 2 diabetes mellitus: Metformin held due to lactic acidosis and septic shock. Insulin sliding scale. Accu-Cheks ACHS #DVT prophylaxis: Heparin Charges/Coding Visit Charges Inpatient E&M: 91849 Subs Hosp L2
--- NOTE | 2024-09-22 10:09 | CASEMGMT ---
Discharge Planning Updates sent via [facility] with request to submit for precert. Shae Jones DC Planning Asst.
[2024-09-22] MEDS: Insulin Lispro 100 UNIT/ML INSULN.PEN SC ×2 (11:43→17:16)
[2024-09-22 12:06] LABS: Bedside Glucose 181 mg/dL (74-106)
[2024-09-22] MEDS: Menthol/Lanolin/Calamine/Znox 113 GM Tube 1 APPLIC TOPICAL ×2 (13:57→20:19)
[2024-09-22] MEDS: Acetaminophen 325 MG Tablet 650 MG PO ×2 (13:57→20:19)
[2024-09-22 17:13] LABS: Bedside Glucose 176 mg/dL (74-106)
[2024-09-22 22:19] LABS: Bedside Glucose 109 mg/dL (74-106)
[2024-09-23] MEDS: MELATONIN 10 MG TABLET PO (01:08)
[2024-09-23] MEDS: Acetaminophen 325 MG Tablet 650 MG PO ×2 (02:36→15:26)
[2024-09-23 02:37] VITALS: BP 111/66; PULSE 67; RESP 26; TEMP 36.7; O2SAT 94
[2024-09-23 03:00] VITALS: PULSE 71
[2024-09-23] MEDS: Menthol/Lanolin/Calamine/Znox 113 GM Tube 1 APPLIC TOPICAL ×2 (05:19→13:12)
[2024-09-23] MEDS: Piperacil/Tazobactam 3.375 GM in 0.9% Normal Saline (50mL MB+) 50 ML IV ×2 (05:23→13:11)
[2024-09-23 05:25] VITALS: BMI 28.5
[2024-09-23 06:41] VITALS: PULSE 60; RESP 16; O2SAT 96
[2024-09-23] MEDS: Ipratropium/Albuterol Sulfate 3 ML AMPUL.NEB INHALATION (06:41)
[2024-09-23 07:24] LABS: Absolute Lymphocyte Count 1.23 X10^3/uL (0.83-4.51); Absolute Neutrophil Count 5.2 X10^3/uL (2.0-7.7); Basophil# 0.09 X10^3/uL; Basophil% 1.2 % (0-1); Eosinophil# 0.64 X10^3/uL; Eosinophils% 8.3 % (0-5); Hematocrit 31.8 % (40-54); Hemoglobin 10.2 g/dL (13.0-16.5); Lymphocyte # 1.23 X10^3/ul (0.83-4.51); Mean Corp Hgb Conc 32.1 g/dL (32-36); Mean Corpuscular Hgb 29.9 pg (27.0-32.0); Mean Corpuscular Volume 93.3 fL (80-94); Mean Platelet Vol. 9.2 fl (6.2-12.0); Monocyte# 0.45 X10^3/uL; Monocyte% 5.9 % (0-10); NRBC Flagged by Analyzer 0 % (0-5); Neutrophil # 5.17 X10^3/uL (2.7-7.7); Neutrophil % 67.3 % (47-70); Platelet Count 395 K/mm3 (150-450); RBC Distribution Width CV 14.2 % (11.6-14.6); RBC Distribution Width SD 47.8 fl (35.1-43.9); Red Blood Count 3.41 M/mm3 (4.6-6.2); White Blood Count 7.7 K/mm3 (4.4-11.0)
[2024-09-23 07:55] LABS: Anion Gap 4 (5-15); BUN 31 mg/dL (7-18); BUN/Creat Ratio 21.8 RATIO (10-20); Calcium,Total 8.8 mg/dL (8.5-10.1); Chloride 101 mmol/L (98-107); Creatinine, Serum 1.42 mg/dL (0.70-1.30); EST Glomerular Filtration Rate 51 mL/min (>60); Est Glom Filt Rate - Afr Amer 62 mL/min (>60); Estimated Creatinine Clearance 46.06 ml/min; Glucose 134 mg/dL (74-106); Potassium 4.5 mmol/L (3.5-5.1); Sodium Level 134 mmol/L (136-145)
[2024-09-23 08:29] LABS: Bedside Glucose 118 mg/dL (74-106)
[2024-09-23 08:30] VITALS: BP 135/70; PULSE 60; RESP 13; TEMP 36.4; O2SAT 95
[2024-09-23] MEDS: Heparin Injection (Vial) 5,000 UNIT/ML VIAL 5000 UNIT SC (11:21)
[2024-09-23] MEDS: Midodrine HCl 5 MG Tablet 10 MG PO ×3 (11:21→16:32)
[2024-09-23] MEDS: Phenazopyridine 95 MG Tablet PO (11:21)
[2024-09-23] MEDS: Aspirin 81 MG TAB.CHEW PO (11:21)
[2024-09-23 11:59] LABS: Bedside Glucose 134 mg/dL (74-106)
--- NOTE | 2024-09-23 12:08 | PN_ITS ---
Subjective Subjective Patient seen and examined. He complains of burning with urination. He is asking for Flomax that he see thinks this can help with the burning with urination. Review of systems is otherwise negative. Objective Data Objective Data Vital Signs: Vital Signs Temp Pulse Resp BP Pulse Ox O2 Del Method O2 Flow Rate 98.0 F 60 16 111/66 96 Room Air 2 09/23/24 02:37 09/23/24 06:41 09/23/24 06:41 09/23/24 02:37 09/23/24 06:41 09/23/24 06:41 09/21/24 23:00 Oxygen Flow Rate (L/min) 2 Oxygen Delivery Method Room Air Weight: 192 lb 7.417 oz Body Mass Index (BMI) 28.5 Intake & Output: Intake and Output for Last 24 Hours 09/21/24 09/22/24 09/23/24 23:59 23:59 23:59 Intake Total 2185.2 / 2185.2 850 / 1850 1100 / 1100 Output Total 3475 / 3475 750 / 1700 1700 / 1700 Balance -1289.8 / -1289.8 100 / 150 -600 / -600 Lab / Micro Data 09/23/24 07:01 09/23/24 07:01 Labs: Laboratory Results - last 24 hr 09/22/24 16:54: POC Glucose 176 H 09/22/24 22:02: POC Glucose 109 H 09/23/24 07:01: WBC 7.7, RBC 3.41 L, Hgb 10.2 L, Hct 31.8 L, MCV 93.3, MCH 29.9, MCHC 32.1, RDW Std Deviation 47.8 H, RDW Coeff of Elida 14.2, Plt Count 395, MPV 9.2, Immature Gran % (Auto) 1.300 H, Neut % (Auto) 67.3, Lymph % (Auto) 16.0 L, [place] % (Auto) 5.9, Eos % (Auto) 8.3 H, Baso % (Auto) 1.2 H, Absolute Neuts (auto) 5.2, Absolute Lymphs (auto) 1.23, Nucleated RBC % 0, Sodium 134 L, Potassium 4.5, Chloride 101, Carbon Dioxide 29.0, Anion Gap 4 L, BUN 31 H, C reatinine 1.42 H, Estim Creat Clear Calc 46.06, Est GFR (MDRD) Af Amer 62, Est GFR (MDRD) Non-Af 51 L, BUN/Creatinine Ratio 21.8 H, Glucose 134 H, Calcium 8.8 09/23/24 08:06: POC Glucose 118 H 09/23/24 11:30: POC Glucose 134 H Micro: Microbiology 09/19/24 17:15 Wound - Leg Gram Stain - Final 09/19/24 17:15 Wound - Leg Wound Culture - Preliminary Staphylococcus species 09/17/24 15:15 Blood Culture (Wb) - Left Wrist Blood Culture - Final No growth in 5 days. 09/17/24 15:15 Blood Culture (Wb) - Right Wrist Blood Culture - Final No growth in 5 days. 09/17/24 14:32 Urine Catheter - Lau Urine Culture - Final Klebsiella pneumoniae sp pneum Physical Exam Const alert, oriented x3, no apparent distress, healthy appearing and well nourished Constitutional Narrative: Patient appears frail and ill General Appearance: cooperative, well kempt and well developed Orientation / Consciousness: awake, oriented to person, oriented to place and oriented to time HEENT normocephalic, head/scalp atraumatic, moist oral mucous membranes and oropharynx normal Eyes PERRL, EOMs intact bilaterally and conjunctivae normal Neck no lymphadenopathy, supple, no JVD, thyroid normal and no carotid bruits General: trachea midline Lymph Lymphatic: no lymphadenopathy noted and no lymphedema noted Resp normal respiratory effort, normal air movement, no retractions, no use of accessory muscles and clear to auscultation bilaterally Auscultation: Negative for rales, rhonchi or wheezes Cardio regular rate, regular rhythm, S1 normal heart sound, S2 normal heart sound, no murmurs, no rub and no gallops GI normal to inspection, nondistended, normoactive bowel sounds, soft to palpation, non-tender and non-distended Extremity normal capillary refill, no clubbing, cyanosis or edema and no calf tenderness Extremity Narrative: superficial ulcerations on lower extremities. General Extremity: no tenderness to palpation of joints or extremities Skin Skin Narrative: superficial ulcerations on lower extremities. Both lower extremities wrapped in bandage. General Skin Exam: no breakdown Neuro oriented x3, CN's II-XII intact bilaterally, no focal motor deficits and no sensory deficits noted Sensorium / Orientation: awake, alert, oriented to person and oriented to place Speech: speech normal Motor Exam: strength 5/5 throughout and general weakness Psych thought process normal, cooperative and affect normal Psych Narrative: flat affect Appearance: appropriate Mood & Affect: flat affect Assessment & Plan Assessment/Plan (1) Septic shock: (2) Complicated urinary tract infection: PLAN: Plan #Septic shock due to UTI * Patient on IV Zosyn. * urine cultures growing Klebsiella pneumoniae * blood cultures showed no growth. * weaned off of levophed * now on Midodrine. Will monitor. * Critical care on board. Titrate Levophed to maintain MAP more than 65. * #Bilateral lower extremity ulcers. * #Lactic acidosis: Likely due to dehydration and septic shock. Resovled. #Debility and weakness due to septic shock: PT OT on board. Fall precautions. #Hypertension: Atenolol and lisinopril on hold on hold due to septic shock #Type 2 diabetes mellitus: Metformin held due to lactic acidosis and septic shock. Insulin sliding scale. Accu-Cheks ACHS #DVT prophylaxis: Heparin
--- NOTE | 2024-09-23 12:16 | CASEMGMT ---
Discharge Planning [facility] has obtained auth to admit. SW and physician updated. Shae Jones DC Planning Asst.
[2024-09-23] MEDS: Tamsulosin HCl 0.4 MG Capsule PO ×2 (13:17→16:32)
--- NOTE | 2024-09-23 14:01 | WOUNDNOTE ---
In to reassess bilateral lower legs. pt still with some edema today. no open areas noted. washed legs and feet with soap and water. pat dry. applied kerlix and CAITLYN wraps. pt tolerated well.
--- NOTE | 2024-09-23 15:11 | TREXTCAR_ITS ---
Diet Diet Order/Speech Therapy: 09/17/24 18:25 Diet: Consistent Carb - Calorie Controlled Food consistency:: Regular Liquid Consistency:: Regular/Thin Type of Dietary Supplement:: Emerson w/ B & D Diet Comments: meat cut into small pieces How many daily calories?: 1800 calorie Routine Orders/Code Status Enema Type: Fleetz Enema Frequency: Daily PRN Suppository Frequency: Daily PRN DC O2, CPAP, BIPAP needs Home O2 Discharge instructions: No Wound(s) coccyx: Wound Type: Pressure Injury Dressing Change: applied foam dressing bilat lower legs: Wound Type: Neuropathic/Diabetic Foot Ulcer Therapies Weight Bearing: Weight bearing as tolerated Physical Therapy: Eval and Treat Occupational Therapy: Eval and Treat Problem/Diagnosis (1) Septic shock: Status: Acute Code(s): A41.9 - Sepsis, unspecified organism; R65.21 - Severe sepsis with septic shock (2) Complicated urinary tract infection: Status: Acute Code(s): N39.0 - Urinary tract infection, site not specified Plan #Septic shock due to UTI * Patient on IV Zosyn. * urine cultures growing Klebsiella pneumoniae * blood cultures showed no growth. * weaned off of levophed * now on Midodrine. Will monitor. * Critical care on board. Titrate Levophed to maintain MAP more than 65. * #Bilateral lower extremity ulcers. * #Lactic acidosis: Likely due to dehydration and septic shock. Resovled. #Debility and weakness due to septic shock: PT OT on board. Fall precautions. #Hypertension: Atenolol and lisinopril on hold on hold due to septic shock #Type 2 diabetes mellitus: Metformin held due to lactic acidosis and septic shock. Insulin sliding scale. Accu-Cheks ACHS #DVT prophylaxis: Heparin Allergies/Procedures Done in Hospital Allergies No Known Allergies Allergy (Verified 09/17/24 13:51) Procedures: None Type of Care/Length of Stay Estimated LOS: Convalescent Care Less Than 30 days Type of Care Needed: Skilled Rehab Potential: Fair Prognosis: Fair Additional Orders/Day of Discharge Day of Discharge: 09/23/24 Dietary and Speech Recommendations Dietitian Recommendations/Changes: Continue 1800 calorie controlled/consistent carbohydrate diet. Continue meats cut into pieces on diet order per pt request. 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 D/c 240ml strawberry glucerna shake with lunch per pt request. Will monitor for changes in pt nutritional status and make additional rec as indicated. Reviewed and approved by Carole Waggoner RDN, BEATRIS. Discharge Plan Admission Admit Date/Time: 09/17/24 15:56 Primary Reason for Your Visit: septic shock due to UTI Attending Provider: Zita Herman Primary Care Provider: Stuart Peña Consulting Providers: Jose Zambrano Instructions Patient Instructions: Sepsis, ED Bladder Infection, Male (Adult) Discharge Orders/Prescriptions Prescriptions: New tamsulosin 0.4 mg Capsule 0.4 mg PO DAILY@1730 Qty: 30 2RF midodrine 5 mg Tablet 10 mg PO TIDCM 30 Days Qty: 180 2RF Continued atenolol 50 mg tablet 25 mg PO Q24H allopurinol 300 mg tablet 300 mg PO DAILY furosemide 20 mg tablet 20 mg PO DAILY Patient Comments: TAKE ONE TABLET BY MOUTH DAILY NEEDED for leg swelling for 5 days at a time (VIAL) mupirocin 2 % ointment 1 applic topical DAILY PRN omeprazole 40 mg capsule,delayed release(DR/EC) 40 mg PO DAILY metformin 850 MG tablet 850 mg PO BIDCM simvastatin 20 MG tablet 40 mg PO QHS aspirin 81 MG tablet,chewable 81 mg PO DAILY fish oil-dha-epa 1 EACH capsule 1,200 ea PO BID lisinopril 2.5 MG tablet 2.5 mg PO DAILY fluticasone furoate-vilanterol 100-25 mcg/dose blister with device 1 puff IH DAILY PRN (Reason: nasel congeestion) metformin 1,000 mg tablet 500 mg PO DAILY Referrals / Follow Up: Stuart Peña MD [Primary Care Provider] - Within 1 Week Disposition Disposition (needs filled in before D/C Order can be placed): [facility]
--- NOTE | 2024-09-23 15:12 | DS.PCM_ITS ---
Providers Date of Admission: 09/17/24 Date of Discharge: 09/23/24 Primary Care Physician: Dr. Stuart Peña MD Consultations 09/18/24 04:19 Consult: Straddle Carrier Operator / Pulmonary Medicine Routine Consulting Provider: Intensivists/Pulmonary Med Reason for Consult: Septic shock, UTI EMERGENT Consult: No MD Notified: Yes Date Notified: 09/18/24 Time Notified: 08:30 Method of Notification: Answering Service 09/19/24 15:07 Consult: Onc/Wound/director of undergraduate admissions Routine Comment: Reason for Consult:: bilat lower legs wounds/lg red areas Reason For Visit: SEVERE SEPSIS DUE TO UTI Diagnosis Discharge Diagnosis (1) Septic shock: Status: Acute Code(s): A41.9 - Sepsis, unspecified organism; R65.21 - Severe sepsis with septic shock (2) Complicated urinary tract infection: Status: Acute Code(s): N39.0 - Urinary tract infection, site not specified Plan #Septic shock due to UTI * Patient on IV Zosyn. * urine cultures growing Klebsiella pneumoniae * blood cultures showed no growth. * weaned off of levophed * now on Midodrine. Will monitor. * Critical care on board. Titrate Levophed to maintain MAP more than 65. * #Bilateral lower extremity ulcers. * #Lactic acidosis: Likely due to dehydration and septic shock. Resovled. #Debility and weakness due to septic shock: PT OT on board. Fall precautions. #Hypertension: Atenolol and lisinopril on hold on hold due to septic shock #Type 2 diabetes mellitus: Metformin held due to lactic acidosis and septic shock. Insulin sliding scale. Accu-Cheks ACHS #DVT prophylaxis: Heparin Medications at Discharge Home Medications aspirin 81 mg chewable tablet 81 mg PO DAILY HEART 10/27/13 fish oil-dha-epa 1,200 mg-144 mg-216 mg capsule 1,200 ea PO BID supplement 10/27/13 metformin 850 mg tablet 850 mg PO BIDCM DIABETES 10/27/13 simvastatin 20 mg tablet 40 mg PO QHS CHOLESTEROL 10/27/13 fluticasone furoate 100 mcg-vilanterol 25 mcg/dose inhalation powder 1 puff IH DAILY PRN nasel congeestion 11/23/19 lisinopril 2.5 mg tablet 2.5 mg PO DAILY BP 02/18/20 allopurinol 300 mg tablet 300 mg PO DAILY gout 10/23/23 atenolol 50 mg tablet 25 mg PO Q24H BP 10/23/23 furosemide 20 mg tablet 20 mg PO DAILY edema 10/23/23 mupirocin 2 % topical ointment 1 applic topical DAILY PRN laceraction 10/23/23 omeprazole 40 mg capsule,delayed release 40 mg PO DAILY ACID REFLUX 10/23/23 metformin 1,000 mg tablet 500 mg PO DAILY diabetes 09/17/24 midodrine 5 mg tablet 10 mg (2 x 5 mg) PO TIDCM 30 days #180 tabs 09/23/24 tamsulosin 0.4 mg capsule 0.4 mg PO DAILY@1730 #30 caps 09/23/24 Hospital Course Operations None Procedures None Summary of Care Provided Minutes Spent on Discharge: 55 Hospital Course: Patient is a 79-year-old male with a past medical history as outlined was admitted to the ED on 09/17/2024 after the EMS was called for wellness check as his family had not heard from him in about 2 weeks. He was found to be unkempt and very weak and unwell. In the ED labs showed WBC of 12.2 with creatinine of 1.59. Urinalysis showed 3+ bacteria. Chest x-ray showed increased markings at the left lung base suggestive of linear atelectasis superimposed on scarring and blunting of the left costophrenic angle. Patient was hypotensive and initially blood pressure improved with IV fluids. He was started on IV ceftriaxone and admitted to the ICU to be managed for sepsis due to UTI. He received ceftriaxone in the ED but this was switched to Zosyn when he got to the ICU. Patient subsequently required initiation of Levophed and was therefore managed for septic shock due to UTI. Urine cultures grew Klebsiella. His lactic acidosis resolved. Patient had a protracted hospital course as he required for Levophed and had difficulty being weaned off. He was eventually weaned off of Levophed and placed on midodrine. He completed a course of antibiotics. He was discharged to SNF on 09/23/2024. HE is to follow up with his PCP within 1-2 weeks. Patient seen and examined prior to discharge. He had no active complaints. Review of systems is otherwise negative. Labs and vitals reviewed. Home meds reviewed and reconciled. Physical Exam Const alert, oriented x3 and no apparent distress Constitutional Narrative: looks much better today General Appearance: cooperative and comfortable Orientation / Consciousness: awake HEENT normocephalic, head/scalp atraumatic, hearing grossly normal bilaterally, moist oral mucous membranes and oropharynx normal Mouth: oral and palatal mucosa normal Eyes PERRL, EOMs intact bilaterally and conjunctivae normal Neck no lymphadenopathy, supple, no JVD, thyroid normal and no carotid bruits General: trachea midline Lymph Lymphatic: no lymphadenopathy noted and no lymphedema noted Resp normal respiratory effort, normal air movement, no retractions, no use of accessory muscles and clear to auscultation bilaterally Auscultation: Negative for rales, rhonchi or wheezes Cardio regular rate, regular rhythm, S1 normal heart sound, S2 normal heart sound, no murmurs, no rub and no gallops GI normal to inspection, nondistended, normoactive bowel sounds, soft to palpation, non-tender and non-distended Extremity normal capillary refill, no clubbing, cyanosis or edema and no calf tenderness Extremity Narrative: superficial ulcerations on lower extremities. General Extremity: no tenderness to palpation of joints or extremities Skin Skin Narrative: superficial ulcerations on lower extremities. Both lower extremities wrapped in bandage. General Skin Exam: no breakdown Neuro oriented x3, CN's II-XII intact bilaterally, no focal motor deficits and no sensory deficits noted Sensorium / Orientation: awake, alert, oriented to person and oriented to place Speech: speech normal Motor Exam: strength 5/5 throughout and general weakness Psych thought process normal, cooperative and affect normal Psych Narrative: flat affect Appearance: appropriate Mood & Affect: flat affect Weight / BMI Weight Weight: 192 lb 7.417 oz Body Mass Index (BMI) 28.5 ABG / Lab / Microbiology Data 09/23/24 07:01 09/23/24 07:01 Laboratory: Laboratory Results - last 24 hr 09/22/24 16:54: POC Glucose 176 H 09/22/24 22:02: POC Glucose 109 H 09/23/24 07:01: WBC 7.7, RBC 3.41 L, Hgb 10.2 L, Hct 31.8 L, MCV 93.3, MCH 29.9, MCHC 32.1, RDW Std Deviation 47.8 H, RDW Coeff of Elida 14.2, Plt Count 395, MPV 9.2, Immature Gran % (Auto) 1.300 H, Neut % (Auto) 67.3, Lymph % (Auto) 16.0 L, [place] % (Auto) 5.9, Eos % (Auto) 8.3 H, Baso % (Auto) 1.2 H, Absolute Neuts (auto) 5.2, Absolute Lymphs (auto) 1.23, Nucleated RBC % 0, Sodium 134 L, Potassium 4.5, Chloride 101, Carbon Dioxide 29.0, Anion Gap 4 L, BUN 31 H, C reatinine 1.42 H, Estim Creat Clear Calc 46.06, Est GFR (MDRD) Af Amer 62, Est GFR (MDRD) Non-Af 51 L, BUN/Creatinine Ratio 21.8 H, Glucose 134 H, Calcium 8.8 09/23/24 08:06: POC Glucose 118 H 09/23/24 11:30: POC Glucose 134 H Microbiology: Microbiology 09/19/24 17:15 Wound - Leg Gram Stain - Final 09/19/24 17:15 Wound - Leg Wound Culture - Preliminary Staphylococcus species 09/17/24 15:15 Blood Culture (Wb) - Left Wrist Blood Culture - Final No growth in 5 days. 09/17/24 15:15 Blood Culture (Wb) - Right Wrist Blood Culture - Final No growth in 5 days. 09/17/24 14:32 Urine Catheter - Lau Urine Culture - Final Klebsiella pneumoniae sp pneum D/C Instructions Discharge Diet: Low fat / Low cholesterol Discharge Activity: Return to Normal Activity Weight Bearing Status: Weight bearing as tolerated Call your doctor if you observe: Fever of 101 or Higher, Shortness of breath, Dizziness, Swelling in the ankles and Chest pain DC O2, CPAP, BIPAP Needs Home O2 Discharge instructions: No DC home with Oxygen: No Meaningful Use Info Meaningful Use Meaningful Use Diagnoses (Choose all that apply): None applicable Ischemic Stroke Statin Dosing Therapy Reference: STATIN DOSE THERAPY REFERENCE: * Patients > 75 years receive moderate or high dose statin therapy. * Patients 75 years or YOUNGER should receive HIGH intensity statin dose unless contraindicated. You will be required to document reason for non-treatment if statin daily dose does not meet guidelines. HIGH DOSE STATIN THERAPY DAILY Atorvastatin > than or = to 40 mg Rosuvastatin > than or = to 20 mg Amlodipine + Atorvastatin > than or = to 2.5/40 mg Ezetimibe + Simvastatin 10/80 mg Simvastatin 80mg Discharge Plan Admission Admit Date/Time: 09/17/24 15:56 Primary Reason for Your Visit: septic shock due to UTI Attending Provider: Zita Herman Primary Care Provider: Stuart Peña Consulting Providers: Jose Zambrano Instructions Patient Instructions: Sepsis, ED Bladder Infection, Male (Adult) Discharge Orders/Prescriptions Prescriptions: New tamsulosin 0.4 mg Capsule 0.4 mg PO DAILY@1730 Qty: 30 2RF midodrine 5 mg Tablet 10 mg PO TIDCM 30 Days Qty: 180 2RF Continued atenolol 50 mg tablet 25 mg PO Q24H allopurinol 300 mg tablet 300 mg PO DAILY furosemide 20 mg tablet 20 mg PO DAILY Patient Comments: TAKE ONE TABLET BY MOUTH DAILY NEEDED for leg swelling for 5 days at a time (VIAL) mupirocin 2 % ointment 1 applic topical DAILY PRN omeprazole 40 mg capsule,delayed release(DR/EC) 40 mg PO DAILY metformin 850 MG tablet 850 mg PO BIDCM simvastatin 20 MG tablet 40 mg PO QHS aspirin 81 MG tablet,chewable 81 mg PO DAILY fish oil-dha-epa 1 EACH capsule 1,200 ea PO BID lisinopril 2.5 MG tablet 2.5 mg PO DAILY fluticasone furoate-vilanterol 100-25 mcg/dose blister with device 1 puff IH DAILY PRN (Reason: nasel congeestion) metformin 1,000 mg tablet 500 mg PO DAILY Referrals / Follow Up: Stuart Peña MD [Primary Care Provider] - Within 1 Week Disposition Disposition (needs filled in before D/C Order can be placed): [facility] Charges/Coding Visit Charges Inpatient E&M: 26923 Disch Hosp >30min
[2024-09-23 15:30] VITALS: BP 153/86; PULSE 66; RESP 11; TEMP 36.3; O2SAT 95
--- NOTE | 2024-09-23 16:07 | CASEMGMT ---
Social Work Precert has been obtained for admission to the [facility]. Physician notified and pt is ready for dc today. 7000 exemption form completed in [facility]. Phone call to pt's brother Steve Sanders and updated on discharge to [facility] today. Steve is understanding and agreeable to dc plan. Phone call to Mine at [facility] who states that since pt is going to the [facility], referral not warranted at this time. When pt leaves the [facility], [facility] referral should be made at that time. VM left for social media job titles at [facility]. Disposition: [facility], skilled level of care under convalescent care FR[facility]I [facility]
--- NOTE | 2024-09-23 16:12 | CASEMGMT ---
Discharge Planning Discharge orders, signed med list, and transport time sent to [facility]. Physicians will transport patient by wheelchair (may send cot). Nursing, SW, and patient updated. SW updated pts brother (Steve). Shae Jones DC Planning Asst.
[2024-09-23 16:45] LABS: Bedside Glucose 114 mg/dL (74-106)
== END 2024-09-23 17:47 | DRG 871 ==
LOC: ED 15:48 → ICU 16:23
PROVIDERS: Admitting Provider Internal Medicine; Emergency Provider Emergency Medicine; PCP Internal Medicine; Referring Provider Emergency Medicine; Visit Provider Student in an Organized Health Care Education/Training Program
DX: A41.9 Sepsis, unspecified organism (principal); R65.21 Severe sepsis with septic shock; E87.20 Acidosis, unspecified; E46 Unspecified protein-calorie malnutrition; I24.89 Other forms of acute ischemic heart disease; L97.911 Non-pressure chronic ulcer of unspecified part of right lower leg limited to breakdown of skin; L97.921 Non-pressure chronic ulcer of unspecified part of left lower leg limited to breakdown of skin; J98.11 Atelectasis; N39.0 Urinary tract infection, site not specified; E86.9 Volume depletion, unspecified; E11.622 Type 2 diabetes mellitus with other skin ulcer; I10 Essential (primary) hypertension; K21.9 Gastro-esophageal reflux disease without esophagitis; B96.1 Klebsiella pneumoniae [K. pneumoniae] as the cause of diseases classified elsewhere; N28.9 Disorder of kidney and ureter, unspecified; Z79.84 Long term (current) use of oral hypoglycemic drugs; Z79.82 Long term (current) use of aspirin; Z87.891 Personal history of nicotine dependence; Z68.28 Body mass index [BMI] 28.0-28.9, adult
CPT/HCPCS: 36415; 36569; 36600; 51702; 71045; 80048; 80053; 81001; 82803; 82962; 83605; 84484; 85025; 85610; 85730; 87040; 87070; 87077; 87086; 87088; 87186; 87205; 93005; 94640; 94762; 97110; 97116; 97163; 97167; 97530; 97535; 97802; 99285; A4216; J0696

== ENCOUNTER 2024-11-12 08:21 | Inpatient (IN) | payer MEDICARE, SELFPAY ==
[2024-11-12] VITALS (43 sets, daily range): BP systolic 57–99; BP diastolic 33–70; PULSE 66–124; RESP 15–27; TEMP 36.3–37.2; O2SAT 81–100; BMI 28.3; BMI 28.6
[2024-11-12] MEDS: 0.9% Normal Saline (1000mL) 1,000 ML 1000 ML IV ×2 (08:30→09:13)
--- NOTE | 2024-11-12 08:43 | EKG12_ITS ---
Test Reason : Blood Pressure : */* mmHG Vent. Rate : 72 BPM Atrial Rate : * BPM P-R Int : * ms QRS Dur : 160 ms QT Int : 440 ms P-R-T Axes : * -79 48 degrees QTcB Int : 481 ms Atrial fibrillation Right bundle branch block Left anterior fascicular block Bifascicular block Abnormal ECG Confirmed by KATHERINE PAGE, EVA ([id number]), video news editor CHIP HAMMER ([id number]) on 11/15/2024 6:36:19 AM Referred By: MICHELL Confirmed By: EVA MURPHY MD
--- NOTE | 2024-11-12 08:50 | EX.ED.DYSGE1 ---
HPI History of Present Illness Chief Complaint: Confusion Informant: patient and EMS Narrative Narrative: 79-year-old male presenting to the emergency department by EMS. Patient was admitted in September with septic shock from urinary source. He was transferred to rehab facility eventually returned home. He notes that he has been having wound care come to his house to wrap his legs due to swelling and they are at baseline. He states over the past 3 to 4 days he has been so weak that he is not been able to get up and move around. He states his last meal was 4 days ago. He notes decreased urination. Patient notes a slight cough which she attributes to postnasal drip he denies any chest pain shortness of breath. He denies any diarrhea. No reported fevers. Patient states he is currently not on an antibiotic. He sees Dr. Peña for primary care. There was a report to the nursing gave me that home health and stated that there was numerous alcoholic bottles around the home. Social work is aware of this patient from his previous admission and his ability to care for self. 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 Primary osteoarthritis, right shoulder Right shoulder pain Home Medications ?Medication ?Instructions ?Recorded ?Last Taken ?Type aspirin 81 mg chewable tablet 81 mg PO DAILY HEART 10/27/13 11/11/24 History fish oil-dha-epa 1,200 mg-144 1,200 ea PO BID supplement 10/27/13 11/23/19 History mg-216 mg capsule metformin 850 mg tablet 850 mg PO BIDCM DIABETES 10/27/13 09/17/24 History simvastatin 20 mg tablet 40 mg PO QHS CHOLESTEROL 10/27/13 11/11/24 History fluticasone furoate 100 1 puff IH DAILY PRN nasel 11/23/19 11/23/19 History mcg-vilanterol 25 mcg/dose congeestion inhalation powder lisinopril 2.5 mg tablet 2.5 mg PO DAILY BP 11/23/19 11/11/24 History allopurinol 300 mg tablet 300 mg PO DAILY gout 10/23/23 11/12/24 History atenolol 50 mg tablet 25 mg PO Q24H BP 10/23/23 11/11/24 History furosemide 20 mg tablet 20 mg PO DAILY edema 10/23/23 Unknown History mupirocin 2 % topical ointment 1 applic topical DAILY PRN 10/23/23 Unknown History laceraction omeprazole 40 mg capsule,delayed 40 mg PO DAILY ACID REFLUX 10/23/23 09/17/24 History release metformin 1,000 mg tablet 500 mg PO DAILY diabetes 09/17/24 11/11/24 History midodrine 5 mg tablet 10 mg (2 x 5 mg) PO TIDCM 30 days 09/23/24 Unknown Rx #180 tabs tamsulosin 0.4 mg capsule 0.4 mg PO DAILY@1730 #30 caps 09/23/24 Unknown Rx Allergy/AdvReac Type Severity Reaction Status Date / Time No Known Allergies Allergy Verified 11/12/24 08:22 Surgical History History of heart bypass surgery Social History household members: none Smoking Status: Former smoker alcohol intake: former ROS ROS ED ROS Narrative Generalized weakness and fatigue Constitutional Constitutional ED: Reports chills; Denies fever(s) or weight loss Eyes Eyes: Denies change in vision or diplopia ENT ENT ED: Reports rhinorrhea; Denies ear pain or sore throat Cardiovascular Cardiovascular: Denies chest pain, orthopnea, palpitations or racing heartbeat Respiratory/Chest Respiratory/Chest: Reports cough; Denies dyspnea or orthopnea Gastrointestinal Gastrointestinal: Denies abdominal pain, diarrhea, nausea or vomiting Genitourinary Genitourinary ED: Denies dysuria, hematuria or urinary frequency Musculoskeletal Musculoskeletal: Reports other Details: Bilateral leg swelling ; Denies arthralgias or myalgias Integumentary Denies abscess or rash Neurologic Neurologic: Denies headache(s) or weakness Psychiatric Psychiatric: Denies anxiety, depression, suicidal ideation or suicidal thoughts Endocrine Endocrinology: Denies polydipsia, polyphagia or polyuria Allergic/Immunologic Allergic/Immunologic ED: Denies mouth swelling, tongue swelling or urticaria EXAM Physical Exam Narrative Exam Narrative: 79-year-old hypotensive male laying on the bed. He appears weak but is conversant and alert and oriented x 3. Const Vital Signs: 11/12/24 08:22 11/12/24 08:28 11/12/24 08:28 Temperature 97.3 F L 97.3 F L Temperature Source Oral Oral Pulse Rate 105 H 77 124 H Respiratory Rate 26 H 27 H 19 H Blood Pressure 81/61 L 71/50 L 77/53 L Blood Pressure Mean 67 57 61 Pulse Ox 100 100 Oxygen Delivery Method Room Air Room Air Oxygen Flow Rate (L/min) 11/12/24 09:28 11/12/24 11:06 11/12/24 12:00 Temperature 97.6 F L Temperature Source Temporal Pulse Rate 81 86 80 Respiratory Rate 16 22 H 23 H Blood Pressure 64/50 L 81/58 L 80/55 L Blood Pressure Mean 54 65 63 Pulse Ox 100 100 88 Oxygen Delivery Method Room Air Oxygen Flow Rate (L/min) 11/12/24 13:00 11/12/24 13:11 11/12/24 13:57 Temperature 97.9 F Temperature Source Pulse Rate 84 84 75 Respiratory Rate 18 18 16 Blood Pressure 83/58 L 83/58 L 99/58 L Blood Pressure Mean 66 66 72 Pulse Ox 100 Oxygen Delivery Method Oxygen Flow Rate (L/min) 11/12/24 14:00 11/12/24 14:03 11/12/24 14:45 Temperature Temperature Source Pulse Rate 86 85 Respiratory Rate 25 H 21 H Blood Pressure 94/44 L 99/58 L 71/53 L Blood Pressure Mean 59 71 60 Pulse Ox Oxygen Delivery Method Oxygen Flow Rate (L/min) 11/12/24 14:48 11/12/24 14:59 11/12/24 15:08 Temperature Temperature Source Pulse Rate 84 74 75 Respiratory Rate 19 H 18 16 Blood Pressure 74/54 L 66/44 L 90/70 Blood Pressure Mean 62 53 77 Pulse Ox 81 82 Oxygen Delivery Method Oxygen Flow Rate (L/min) 11/12/24 15:25 11/12/24 15:30 11/12/24 15:36 Temperature 98 F Temperature Source Oral Pulse Rate 73 75 81 Respiratory Rate 24 H 19 H 18 Blood Pressure 84/43 L 88/53 L Blood Pressure Mean 58 64 Pulse Ox 83 100 Oxygen Delivery Method Nasal Cannula Oxygen Flow Rate (L/min) 2 11/12/24 15:40 11/12/24 15:42 11/12/24 15:45 Temperature Temperature Source Pulse Rate 90 75 Respiratory Rate 20 H 21 H Blood Pressure 57/33 L 75/54 L 57/33 L Blood Pressure Mean 41 61 41 Pulse Ox 100 Oxygen Delivery Method Oxygen Flow Rate (L/min) 11/12/24 15:45 11/12/24 15:50 11/12/24 16:00 Temperature Temperature Source Pulse Rate 85 82 69 Respiratory Rate 22 H Blood Pressure 75/54 L 75/54 L 74/53 L Blood Pressure Mean 62 61 60 Pulse Ox 100 98 99 Oxygen Delivery Method Oxygen Flow Rate (L/min) Positive well nourished and well developed General Appearance ED: well developed and NAD HEENT Reports normocephalic, head/scalp atraumatic and moist mucous membranes Eyes PERRL and EOMs intact bilaterally Neck no lymphadenopathy, supple and no JVD Resp normal respiratory effort and clear to auscultation bilaterally Cardio regular rate, regular rhythm and no murmurs GI normal to inspection, nondistended, normoactive bowel sounds and non-tender Palpation: soft Back/Spine no CVA tenderness and normal ROM Extremity Extremity Narrative: Legs were wrapped with Naveed wrap's. I have took them down revealing Ld. There are no appreciable large wounds. No significant cellulitic changes. Toes are pink. General Extremety ED: Yes edema General Extremity: edema bilateral lower extremity Details: moderate Neuro oriented x3 and CN's II-XII intact bilaterally Sensorium / Orientation: alert Motor Exam: strength 5/5 throughout Psych mental status grossly normal Mood & Affect: Negative for depressed or tearful Skin no rashes or lesions noted and no wounds MDM MDM MDM Narrative Medical decision making narrative: Differential diagnosis includes but not limited to dehydration electrolyte abnormalities renal failure anemia ACS intoxication UTI pneumonia sepsis Bedside ultrasound does not reveal any urinary retention. Basic blood work shows a white count of 9.6 hemoglobin 9.9 platelet count 149. BMP shows a significant elevation of his creatinine of 4.35 with a BUN of 76 CO2 of 11 anion gap of 12 lactic acid is normal at 1.1. Sodium 135 potassium 4.5. Calcium is low at 6.2 magnesium 1.4 troponin at 136 BNP 354.3. EKG appears to be rate controlled atrial fibrillation. Lau catheter was placed. This demonstrates 25-50 white cells 10-25 red blood cells 2+ bacteria positive nitrates will be sent for culture. Toxicology is negative. My independent interpretation of the chest x-ray is no acute process. Patient received calcium as well as IV fluids of total of about 3 L. His pressures have been quite variable with some means greater than 65 some lower. The patient's mentation has declined. Hospitalist evaluated the patient. We attempted some low-dose peripheral Levophed but it was not effective in raising his pressure. Therefore a right IJ central line was placed under sterile ultrasound guidance using the modified Salinger technique. This obtained in the first attempt without difficulty. Dark red nonpulsatile blood was obtained. Lines were flushed and the line was sutured in place. My independent interpretation of the post procedure films no pneumothorax. Adequate placement of the line. The line was approved for use. Patient has received Rocephin based on his prior urine culture. History & Record Review Discussion w/independent historian: EMS personnel and Patient Additional record(s) reviewed:: Prior inpatient record, Prior ED visit and Prior labs Lab Data Attestation: I reviewed the patient's lab results. Labs: Laboratory Results - last 24 hr 11/12/24 11/12/24 11/12/24 08:40 08:58 09:10 WBC 9.6 RBC 3.22 L Hgb 9.9 L Hct 30.0 L MCV 93.2 MCH 30.7 MCHC 33.0 RDW Std Deviation 59.2 H RDW Coeff of Elida 17.3 H Plt Count 149 L MPV 11.6 Immature Gran % (Auto) 0.800 Neut % (Auto) 86.1 H Lymph % (Auto) 4.6 L [place] % (Auto) 7.4 Eos % (Auto) 0.9 Baso % (Auto) 0.2 Absolute Neuts (auto) 8.3 H Absolute Lymphs (auto) 0.44 L Nucleated RBC % 0.2 PT 16.2 H INR 1.3 APTT 31.7 Sodium 135 L Potassium 4.5 Chloride 112 H Carbon Dioxide 11.0 L Anion Gap 12 BUN 76 H Creatinine 4.35 H Estim Creat Clear Calc 15.29 Est GFR (MDRD) Af Amer 17 L Est GFR (MDRD) Non-Af 14 L BUN/Creatinine Ratio 17.5 Glucose 79 Lactic Acid 1.1 Calcium 6.2 L* Ionized Calcium Magnesium 1.4 L Total Bilirubin 0.50 Direct Bilirubin 0.33 H AST 23 ALT 17 Alkaline Phosphatase 70 Troponin I High Sens 136 H* B-Natriuretic Peptide 354.3 H Total Protein 5.0 L Albumin 1.6 L Globulin 3.4 Urine Color Urine Clarity Urine pH Ur Specific [place] Urine Protein Urine Glucose (UA) Urine Ketones Urine Occult Blood Urine Nitrite Urine Bilirubin Urine Urobilinogen Ur Leukocyte Esterase Urine RBC Urine WBC Ur Squamous Epith Cells Ur Transition Epith Cell Ur Renal Epithelial Cell Urine Bacteria Urine Mucus Urine Opiates Screen Urine Methadone Screen Ur Barbiturates Screen Ur Phencyclidine Scrn Ur Amphetamines Screen MDMA (Ecstasy) Screen U Benzodiazepines Scrn Urine Cocaine Screen U Cannabinoids Screen Ur Drug Screen Comment Ethyl Alcohol < 3.0 POC Glucose 100 11/12/24 11/12/24 11:01 12:02 WBC RBC Hgb Hct MCV MCH MCHC RDW Std Deviation RDW Coeff of Elida Plt Count MPV Immature Gran % (Auto) Neut % (Auto) Lymph % (Auto) [place] % (Auto) Eos % (Auto) Baso % (Auto) Absolute Neuts (auto) Absolute Lymphs (auto) Nucleated RBC % PT INR APTT Sodium Potassium Chloride Carbon Dioxide Anion Gap BUN Creatinine Estim Creat Clear Calc Est GFR (MDRD) Af Amer Est GFR (MDRD) Non-Af BUN/Creatinine Ratio Glucose Lactic Acid Calcium Ionized Calcium 1.02 L Magnesium Total Bilirubin Direct Bilirubin AST ALT Alkaline Phosphatase Troponin I High Sens B-Natriuretic Peptide Total Protein Albumin Globulin Urine Color Yellow Urine Clarity Cloudy Urine pH 6.0 Ur Specific [place] 1.015 Urine Protein 100 H Urine Glucose (UA) Normal Urine Ketones Negative Urine Occult Blood 150 H Urine Nitrite Positive H Urine Bilirubin Negative Urine Urobilinogen 1 H Ur Leukocyte Esterase 500 H Urine RBC 10-25 SEEN Urine WBC 25-50 SEEN Ur Squamous Epith Cells 0-5 SEEN Ur Transition Epith Cell 0-5 SEEN Ur Renal Epithelial Cell 10-25 SEEN Urine Bacteria 2+ Urine Mucus 0 SEEN Urine Opiates Screen NEGATIVE Urine Methadone Screen NEGATIVE Ur Barbiturates Screen NEGATIVE Ur Phencyclidine Scrn NEGATIVE Ur Amphetamines Screen NEGATIVE MDMA (Ecstasy) Screen NEGATIVE U Benzodiazepines Scrn NEGATIVE Urine Cocaine Screen NEGATIVE U Cannabinoids Screen NEGATIVE Ur Drug Screen Comment Ethyl Alcohol POC Glucose Radiography Diagnostic Testing: Clinical Impression(s) from Imaging Studies Chest X-Ray 11/12/24 09:15 IMPRESSION: No acute cardiopulmonary process. Reading Location: [facility] EKG Initial EKG: Attestation: I personally reviewed and interpreted this EKG as follows: Comments: Atrial fibrillation ventricular rate of 72 bpm. Right bundle branch block noted. Management Discussion w/another healthcare provider: Hospitalist (Dr Seymour) Critical Care Time Critical Care Time: Yes Critical care time (excluding procedures): 30-74 minutes (35 min), Including time spent:, Discussing w/Patient &/or Family/Oil Developer, Discussing w/Consultants, Arranging Admission or Transfer and Performing Direct Patient Care at Bedside Discharge Plan Dx/Rx/DC Orders Clinical Impression: Thrombocytopenia, Acute renal failure, Acute UTI, Acute hypotension, Acute dehydration, Adult failure to thrive, Hypocalcemia, Elevated troponin, Chronic anemia Disposition Disposition: Acute Care Hospital [facility]
[2024-11-12 08:59] LABS: Bedside Glucose 100 mg/dL (74-106)
[2024-11-12 09:10] LABS: Absolute Lymphocyte Count 0.44 X10^3/uL (0.83-4.51); Absolute Neutrophil Count 8.3 X10^3/uL (2.0-7.7); Basophil# 0.02 X10^3/uL; Basophil% 0.2 % (0-1); Eosinophil# 0.09 X10^3/uL; Eosinophils% 0.9 % (0-5); Hemoglobin 9.9 g/dL (13.0-16.5); Lymphocyte # 0.44 X10^3/ul (0.83-4.51); Lymphocyte % 4.6 % (19-41); Mean Corpuscular Hgb 30.7 pg (27.0-32.0); Mean Corpuscular Volume 93.2 fL (80-94); Mean Platelet Vol. 11.6 fl (6.2-12.0); Monocyte# 0.71 X10^3/uL; Monocyte% 7.4 % (0-10); NRBC Flagged by Analyzer 0.2 % (0-5); Neutrophil # 8.28 X10^3/uL (2.7-7.7); Neutrophil % 86.1 % (47-70); POSITIVE DIFFERENTIAL YES; Platelet Count 149 K/mm3 (150-450); RBC Distribution Width CV 17.3 % (11.6-14.6); RBC Distribution Width SD 59.2 fl (35.1-43.9); Red Blood Count 3.22 M/mm3 (4.6-6.2); White Blood Count 9.6 K/mm3 (4.4-11.0)
--- NOTE | 2024-11-12 09:15 | RAD_ITS ---
EXAM: XR Chest, 1 View CLINICAL INDICATION: TECHNIQUE: Frontal view of the chest. COMPARISON: No relevant prior studies available. FINDINGS: LUNGS AND PLEURAL SPACES: Unremarkable. No consolidation. No pneumothorax. HEART: Unremarkable. No cardiomegaly. MEDIASTINUM: Unremarkable. Normal mediastinal contour. BONES/JOINTS: Unremarkable. No acute fracture. RAD/Chest 1 View (Portable) IMPRESSION: No acute cardiopulmonary process. Reading Location[facility]
[2024-11-12 09:25] LABS: Alcohol, Blood (Medical)-Serum < 3.0 mg/dL
[2024-11-12 09:27] LABS: International Normalized Ratio 1.3; Prothrombin Time (Protime)PT. 16.2 SECONDS (11.7-14.9)
[2024-11-12 09:28] LABS: Partial Thromboplast Time 31.7 Seconds (24.1-36.2)
[2024-11-12 09:30] LABS: AST(SGOT) 23 U/L (15-37); Alanine Aminotransfer ALT/SGPT 17 U/L (16-61); Albumin, Serum 1.6 g/dL (3.2-5.0); Alkaline Phosphatase 70 U/L (45-117); Anion Gap 12 (5-15); BUN 76 mg/dL (7-18); BUN/Creat Ratio 17.5 RATIO (10-20); Bilirubin, Direct 0.33 mg/dL (0.00-0.30); Calcium,Total 6.2 mg/dL (8.5-10.1); Chloride 112 mmol/L (98-107); Creatinine, Serum 4.35 mg/dL (0.70-1.30); EST Glomerular Filtration Rate 14 mL/min (>60); Est Glom Filt Rate - Afr Amer 17 mL/min (>60); Estimated Creatinine Clearance 15.29 ml/min; Globulin 3.4 g/dL (2.2-4.2); Glucose 79 mg/dL (74-106); Potassium 4.5 mmol/L (3.5-5.1); Sodium Level 135 mmol/L (136-145); Troponin-I HS 136 pg/mL (3.0-78.0)
[2024-11-12 09:32] LABS: BNP,B-Type NATRIURETIC PEPTIDE 354.3 pg/mL (0-100)
[2024-11-12 09:53] LABS: Lactic Acid 1.1 mmol/L (0.4-1.9)
[2024-11-12 11:14] LABS: Mucous, Urine 0 SEEN /hpf (<or=2+)
[2024-11-12 11:19] LABS: Color, Urine Yellow (Yellow); Glucose, Dipstick Normal (Normal); Ketone-Dipstick Negative (Negative); Leukocyte Esterase-Dipstick 500 /ul (Negative); Nitrite-Dipstick Positive (Negative); Occult Blood-Urine 150 /ul (Negative); Protein-Dipstick 100 mg/dl (Negative); Specific Gravity, Urine 1.015 (1.002-1.030); Urine Bilirubin Dipstick Negative (Negative); Urine Clarity Cloudy (Clear); Urine Urobilinogen 1 mg/dl (Normal)
[2024-11-12 11:27] LABS: Red Blood Cells-Urine 10-25 SEEN /hpf (0-5); Squamous Epithelial Cells - UA 0-5 SEEN /hpf (0-5); White Blood Cells 25-50 SEEN /hpf (0-5)
[2024-11-12 11:28] LABS: Bacteria 2+ /hpf (None Seen); Renal Epithelial Cells 10-25 SEEN /hpf (0-5); Transitional Epithelial - Ur 0-5 SEEN /hpf (0-5)
[2024-11-12 11:36] LABS: Magnesium 1.4 mg/dL (1.6-2.6)
[2024-11-12 11:36] LABS: Amphetamine Urine NEGATIVE (<1000 ng/mL); Barbiturate Urine VISTA NEGATIVE (< 200 ng/mL); Benzodiazepine Urine VISTA NEGATIVE (< 200 ng/mL); Cocaine Urine VISTA NEGATIVE (< 300 ng/mL); Ecstacy Urine VISTA NEGATIVE (< 500 ng/mL); Methadone Urine VISTA NEGATIVE (< 300 ng/mL); PCP Urine VISTA NEGATIVE (< 25 ng/mL); THC Urine VISTA NEGATIVE (< 50 ng/mL); Vista UDS pH Range 5
[2024-11-12] MEDS: 0.9% Normal Saline (1000mL) 1,000 ML 999 ML IV (12:02)
[2024-11-12 12:08] LABS: Ionized Calcium 1.02 mmol/L (1.09-1.30)
[2024-11-12] MEDS: Calcium Gluconate 1 GM/10 ML Vial IVP (12:15)
[2024-11-12] MEDS: Ceftriaxone 1 GM/50 ML BAG IV (12:23)
--- NOTE | 2024-11-12 12:38 | ED.RN ---
DR. GALARZA NOTIFIED OF PT TRIGGERING SEPSIS, AWARE, FLUID RESISITATION NOT INTITIATION D/T LACK OF INFECTION, BUT FOR LOW BP.
[2024-11-12 13:01] LABS: Ionized Calcium Order ORDER TUBE
--- NOTE | 2024-11-12 13:33 | PCM.HP.STD ---
HPI - General General Date of Service: 11/12/24 Chief Complaint: Generalized weakness HPI Narrative NATALIA BURDICK, is a 79-year-old male history of diabetes, hypertension, gout, GERD presented [facility] ED 11/12/2024 with 3 to 4 days of increased weakness to the point where he can barely get up and move around, has also not eaten in 4 days and has decreased urination. Slight cough but no chest pain or shortness of breath, no diarrhea or fevers. Reportedly per home health there were multiple alcohol bottles around the home. In the ED patient with heart rate of 105, blood pressure 81/61 with respiratory rate 26 saturating 100% on room air. Patient with white blood cell count of 9.6, platelets 149, sodium slightly low at 135 with a bicarb of 11, anion gap of 12 with a BUN of 76 and a creatinine of 4.35 with a baseline around 1.3. Patient also with calcium of 6.2 and magnesium of 1.4. Lactic acid within normal limits. Troponin 136 with a BNP of 354 but nothing for comparison available. Albumin 1.6. UA suggestive of UTI. Chest x-ray with no acute process. Alcohol and drug screen negative. Blood and urine culture sent, [facility]. Patient evaluated at bedside, patient extremely poor historian and unable to answer any questions directly other than confirm that he has been feeling weak. Said he drinks a beer occasionally but not very forthcoming, said no other ROS however did not seem to quite understand my questions so unclear. 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 Primary osteoarthritis, right shoulder Right shoulder pain Home Medications ?Medication ?Instructions ?Recorded ?Last Taken ?Type aspirin 81 mg chewable tablet 81 mg PO DAILY HEART 10/27/13 11/11/24 History fish oil-dha-epa 1,200 mg-144 1,200 ea PO BID supplement 10/27/13 11/23/19 History mg-216 mg capsule metformin 850 mg tablet 850 mg PO BIDCM DIABETES 10/27/13 09/17/24 History simvastatin 20 mg tablet 40 mg PO QHS CHOLESTEROL 10/27/13 11/11/24 History fluticasone furoate 100 1 puff IH DAILY PRN nasel 11/23/19 11/23/19 History mcg-vilanterol 25 mcg/dose congeestion inhalation powder lisinopril 2.5 mg tablet 2.5 mg PO DAILY BP 11/23/19 11/11/24 History allopurinol 300 mg tablet 300 mg PO DAILY gout 10/23/23 11/12/24 History atenolol 50 mg tablet 25 mg PO Q24H BP 10/23/23 11/11/24 History furosemide 20 mg tablet 20 mg PO DAILY edema 10/23/23 Unknown History mupirocin 2 % topical ointment 1 applic topical DAILY PRN 10/23/23 Unknown History laceraction omeprazole 40 mg capsule,delayed 40 mg PO DAILY ACID REFLUX 10/23/23 09/17/24 History release metformin 1,000 mg tablet 500 mg PO DAILY diabetes 09/17/24 11/11/24 History midodrine 5 mg tablet 10 mg (2 x 5 mg) PO TIDCM 30 days 09/23/24 Unknown Rx #180 tabs tamsulosin 0.4 mg capsule 0.4 mg PO DAILY@1730 #30 caps 09/23/24 Unknown Rx Allergy/AdvReac Type Severity Reaction Status Date / Time No Known Allergies Allergy Verified 11/12/24 08:22 Surgical History History of heart bypass surgery Social History household members: none Smoking Status: Former smoker alcohol intake: former ROS ROS Narrative Unable to accurately obtain, patient extremely poor historian, did report being somewhat weak all over the Vital Signs Vital Signs Vital Signs: 11/12/24 08:22 11/12/24 08:28 11/12/24 08:28 Temperature 97.3 F L 97.3 F L Temperature Source Oral Oral Pulse Rate 105 H 77 124 H Respiratory Rate 26 H 27 H 19 H Blood Pressure 81/61 L 71/50 L 77/53 L Blood Pressure Mean 67 57 61 Pulse Ox 100 100 Oxygen Delivery Method Room Air Room Air 11/12/24 09:28 11/12/24 11:06 11/12/24 12:00 Temperature 97.6 F L Temperature Source Temporal Pulse Rate 81 86 80 Respiratory Rate 16 22 H 23 H Blood Pressure 64/50 L 81/58 L 80/55 L Blood Pressure Mean 54 65 63 Pulse Ox 100 100 88 Oxygen Delivery Method Room Air 11/12/24 13:00 11/12/24 13:11 Temperature 97.9 F Temperature Source Pulse Rate 84 84 Respiratory Rate 18 18 Blood Pressure 83/58 L 83/58 L Blood Pressure Mean 66 66 Pulse Ox 100 Oxygen Delivery Method Weight Weight: 87.1 kg Body Mass Index (BMI) 28.3 Physical Exam Narrative General: Alert, very poor historian, answers questions but not accurately HEENT: Atraumatic, normocephalic Eyes: Anicteric, normal conjunctiva, extraocular movements grossly intact Neck: Supple Respiratory: Normal respiratory effort, no overt wheezes or rhonchi Cardiovascular: Regular rate GI: Soft, nontender, nondistended Extremities: No significant pitting edema Musculoskeletal: Moving all extremities Neuro: No overt focal neurological deficits however patient unable to participate in exam Skin: No rashes appreciated, some chronic changes on lower extremities Psych: Attempts to be cooperative Results Lab / Micro Data 11/12/24 08:58 11/12/24 08:58 Labs: Laboratory Results - last 24 hr 11/12/24 08:40: POC Glucose 100 11/12/24 08:58: WBC 9.6, RBC 3.22 L, Hgb 9.9 L, Hct 30.0 L, MCV 93.2, MCH 30.7, MCHC 33.0, RDW Std Deviation 59.2 H, RDW Coeff of Elida 17.3 H, Plt Count 149 L, MPV 11.6, Immature Gran % (Auto) 0.800, Neut % (Auto) 86.1 H, Lymph % (Auto) 4.6 L, [place] % (Auto) 7.4, Eos % (Auto) 0.9, Baso % (Auto) 0.2, Absolute Neuts (auto) 8.3 H, Absolute Lymphs (auto) 0.44 L, Nucleated RBC % 0.2, PT 16.2 H, INR 1.3, APTT 31.7, Sodium 135 L, Potassium 4.5, Chloride 112 H, Carbon Dioxide 11.0 L, Anion Gap 12, BUN 76 H, Creatinine 4.35 H, Estim Creat Clear Calc 15.29, Est GFR (MDRD) Af Amer 17 L, Est GFR (MDRD) Non-Af 14 L, BUN/Creatinine Ratio 17.5, Glucose 79, Calcium 6.2 L*, Magnesium 1.4 L, Total Bilirubin 0.50, Direct Bilirubin 0.33 H, AST 23, ALT 17, Alkaline Phosphatase 70, Troponin I High Sens 136 H*, B-Natriuretic Peptide 354.3 H, Total Protein 5.0 L, Albumin 1.6 L, Globulin 3.4, Ethyl Alcohol < 3.0 11/12/24 09:10: Lactic Acid 1.1 11/12/24 11:01: Urine Color Yellow, Urine Clarity Cloudy, Urine pH 6.0, Ur Specific [place] 1.015, Urine Protein 100 H, Urine Glucose (UA) Normal, Urine Ketones Negative, Urine Occult Blood 150 H, Urine Nitrite Positive H, Urine Bilirubin Negative, Urine Urobilinogen 1 H, Ur Leukocyte Esterase 500 H, Urine RBC 10-25 SEEN, Urine WBC 25-50 SEEN, Ur Squamous Epith Cells 0-5 SEEN, Ur Transition Epith Cell 0-5 SEEN, Ur Renal Epithelial Cell 10-25 SEEN, Urine Bacteria 2+, Urine Mucus 0 SEEN, Urine Opiates Screen NEGATIVE, Urine Methadone Screen NEGATIVE, Ur Barbiturates Screen NEGATIVE, Ur Phencyclidine Scrn NEGATIVE, Ur Amphetamines Screen NEGATIVE, MDMA (Ecstasy) Screen NEGATIVE, U Benzodiazepines Scrn NEGATIVE, Urine Cocaine Screen NEGATIVE, U Cannabinoids Screen NEGATIVE, Ur Drug Screen Comment 11/12/24 12:02: Ionized Calcium 1.02 L Micro: Microbiology 11/12/24 08:50 Mucosa - Nose SARS-CoV-2, Influenza & RSV (PCR) - Final Imaging Radiology Impression Chest X-Ray 11/12/24 09:15 IMPRESSION: No acute cardiopulmonary process. Reading Location: [facility] Assessment & Plan Assessment/Plan (1) Acute dehydration: (2) Acute hypotension: (3) Acute renal failure: (4) Acute UTI: (5) Adult failure to thrive: (6) Elevated troponin: (7) Hypocalcemia: PLAN: Plan # Acute renal failure -Patient's BUN 76 with a creatinine of 4.35, baseline around 1.3 -Patient reportedly had not eaten or drank in at least 4 days -IV fluids -Daily weights, I's and O's -Lau placed, bladder scan in the ED did not show any retention -If not improving may need nephrology consult # Hypotension -Suspect due to patient's significantly poor p.o. intake and malnutrition -IV fluids -Had improved in the ED with IV fluids, when patient was trying a bowel movement did vagal down with pressure of 65/53 but it recovered to 99/58 -Appears at least at some point that he was on midodrine, will restart -Will check TSH # Suspect UTI -UA abnormal and suggestive of infection -Urine culture -Empiric IV antibiotics # Hypocalcemia, hypomagnesemia -Will replace calcium and magnesium # Elevated troponin -Suspect this is secondary to patient's hypotension and renal failure -No chest pain or reason to suspect primary cardiac etiology #Afib -Patient appears to be in A-fib on EKG in the monitor -Do not see the patient has documented A-fib and he is not on a blood thinner -Will need to look back in history to see if this is a new problem or if there is a specific contraindication to blood thinners -If new problem may need echo -In the meantime we will have on DVT prophylaxis until this can be ascertained -Will start metoprolol with holding parameters #Concern for alcohol use -Patient not very forthcoming with his use and said he will have a beer once in a while however per home health he had multiple alcohol bottles in his house -Thiamine and folate -CIWA #Hx open heart surgery -Scar seen and it is not surgical history -Continue statin and aspirin # Significant generalized weakness and failure to thrive -Suspect secondary to all of the above -PT/OT -Case management -IV fluids -Nutrition consult #Type 2 diabetes mellitus -Glucose checks and sliding scale insulin -Hold home metformin #Gout -Continue home allopurinol #GERD -Continue PPI #Hypertension -Holding home atenolol and lisinopril due to hypotension #DVT ppx: Heparin subcu Candie Seymour MD Charges/Coding Visit Charges Inpatient E&M: 39382 Init Hosp L3
--- NOTE | 2024-11-12 14:36 | CASEMGMT ---
Care Management Face to Face with patient for initial transition planning/care coordination assessment in the ED.? This engineering technical writer introduced self and role at [facility]. Patient alert and oriented. Patient willing to participate in assessment and is able to answer all questions appropriately.? Care providers, pharmacy, and demographics verified. Admitting Diagnosis: Acute UTI Other diagnosis history: Diabetes, hypertension, gout, GERD PCP: Casey Specialists: none Preferred Pharmacy: [facility] Insurance: [employer] Prescription Benefit:?yes Living Will/HPOA: Reports brother is HPOA LNOK: brother Living Arrangements: Lives alone in a two story home.? Patient does not use the upstairs.? Patient admits to having trouble caring for self, difficulty eating and ambulating.? Transportation: ??patient had been driving DME: walker, cane HH: Reports to having a nurse come out daily for wound care.? Patient did not know name of agency. SNF/Rehab: ?Recently at [facility] Resources: none Behavioral Health History: none Patient goals: Uncertain at this time. Disposition Plan: admission to acute; RN CM/SW to follow for discharge planning needs that may arise. Ashley Flores, DIRECTOR OF FOOD AND NUTRITION, [facility]
[2024-11-12] MEDS: Norepinephrine 8 MG in 0.9% Normal Saline (250mL Bag) 242 ML 9.4 MG CONT INF (15:25)
[2024-11-12] MEDS: 0.9% Normal Saline (1000mL) 1,000 ML 200 ML IV (15:48)
--- NOTE | 2024-11-12 15:50 | ED.RN ---
DR. GALARZA AWARE OF PT BLOOD PRESSURE 57/33. THIS NURSE WAS TOLD TO WAIT 15 MIN BEFORE TITRATING VASOPRESSOR
--- NOTE | 2024-11-12 16:10 | RAD_ITS ---
PROCEDURE: CHEST 1 VIEW (PORTABLE) REASON FOR EXAM: Central line placement. TECHNIQUE: Frontal view of the chest. COMPARISON: 11/12/2024. FINDINGS: The cardiac and mediastinal contours are normal. Elevation of the left hemidiaphragm. No acute consolidation, pleural effusion or pneumothorax. 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 Right internal jugular catheter with tip in the superior vena cava. RAD/Chest 1 View (Portable) IMPRESSION: Right internal jugular catheter with tip in the superior vena cava. No acute consolidation, pleural effusion or pneumothorax. Reading Location: [id number]
--- NOTE | 2024-11-12 16:12 | ED.RN ---
CENTRAL LINE PLACED AT THIS TIME BY DR. GALARZA
--- NOTE | 2024-11-12 16:19 | ED.RN ---
Dr. Seymour notified of patients BP. Per Dr. Seymour talking with Dr. Whyte regarding patients blood pressure. Dr. Whyte states we will start Levo thru the IV. He has had Levo run in the past peripherally and it had been DC'd fairly quick. This RN asked why Dr. Whyte wouldn't start a central line for rm 1. Dr. whyte re-iterated it is not necessary at this time. Dr. Seymour notified of BP 57/44. Dr. Seymour said she will be down to talk to Iain. Doris Bhatia notified of interaction. Dr. Whyte at bedside performing central line placement
--- NOTE | 2024-11-12 16:58 | ED.RN ---
THIS NURSE WAS INSTRUCTED TO TITARTE VASOPRESSOR PER PROTOCOL BY DR. FONSECA
--- NOTE | 2024-11-12 17:00 | PN.HOSP_ITS ---
Hospitalist Note Patient initially seen responded fluids however has worsened and required central line placement and Levophed to be started, he has been bolused with fluids, will more broadly cover with antibiotics, comfort station attendant consult Sepsis Attestation Sepsis Alert: Yes Sepsis Attestation: Agree w/Sepsis Date exam was performed: 11/12/24 Time exam was performed: 14:00 Possible Source of Sepsis: Pulmonary and Genitourinary Sepsis Organ Dysfunction Criteria Present: SBP < 90 mmHg or MAP < 65 mmHg, Creatinine > 2.0 mg/dL, Serum CO2 < 20 mmol/L (on BMP) and New/Unexplained ch vilma in mental status Fluid Resuscitation Fluid resuscitation indicated?: Yes Fluid Resuscitation ordered: 30 ml/kg fluid bolus ordered Sepsis Note Date exam was performed: 11/12/24 Time exam was performed: 16:30 Sepsis Attestation: Sepsis re-evaluation was performed Response to fluids: Non Fluid responsive hypotension and Vasopressors started
[2024-11-12] MEDS: Piperacil/Tazobactam 3.375 GM in 0.9% Normal Saline (50mL MB+) 50 ML IV (17:30)
[2024-11-12] MEDS: Calcium Gluconate IV 2 GM in 0.9% Normal Saline (100mL Bag) 100 ML IV (17:32)
[2024-11-12 17:40] LABS: Base Excess -17 mmol/L (-2 to +2); Bicarbonate 11.4 mmol/L (22-26); Blood Gas Specimen Type ART; Mode Not entered; O2 Delivery Device Cannula; PO2 94 mmHG (75-100); SITE R Radial; SO2 95 % (95-99); Total Carbon Dioxide 12 mmol/L; pCO2 30.8 mmHg (35-45); pH 7.18 (7.35-7.45)
[2024-11-12 17:47] LABS: Lactic Acid 1.2 mmol/L (0.4-1.9)
[2024-11-12] MEDS: Vancomycin HCl 2,000 MG in 0.9% Normal Saline (500mL Bag) 500 ML 250 MG IV (18:01)
[2024-11-12] MEDS: 0.9% Normal Saline (1000mL) 1,000 ML 75 ML IV (18:01)
--- NOTE | 2024-11-12 18:15 | PCM.RX.CS ---
Consult Antibiotic Management Pharmacy has been consulted to manage selected antibiotic: Vancomycin Type of Intervention Type of Consult: New start Suspected Infection Suspected Infection: Other (uti) Labs Labs: Sodium 135 mmol/L (136-145) L 11/12/24 08:58 Potassium 4.5 mmol/L (3.5-5.1) 11/12/24 08:58 Chloride 112 mmol/L (98-107) H 11/12/24 08:58 Carbon Dioxide 11.0 mmol/L (21.0-32.0) L 11/12/24 08:58 Anion Gap 12 (5-15) 11/12/24 08:58 BUN 76 mg/dL (7-18) H 11/12/24 08:58 Creatinine 4.35 mg/dL (0.70-1.30) H 11/12/24 08:58 Est GFR (MDRD) Af Amer 17 mL/min (>60) L 11/12/24 08:58 Est GFR (MDRD) Non-Af 14 mL/min (>60) L 11/12/24 08:58 BUN/Creatinine Ratio 17.5 RATIO (10-20) 11/12/24 08:58 Glucose 79 mg/dL (74-106) 11/12/24 08:58 Microbiology Microbiology: Microbiology 11/12/24 08:50 Mucosa - Nose SARS-CoV-2, Influenza & RSV (PCR) - Final Pharmacy Plan for Drug Dosing Pharmacy Plan for Drug Dosing: NEW START IV VANCOMYCIN Consulting Physician: Lion Indication: UTI Goal Trough: 15-20 mg/dL SrCr: 4.35 mg/dL CrCl: 15 mL/min Comments: 2000mg loading dose given in ER 11/12 @ 1801 Vancomycin Dose: Will not start scheduled doses as CrCl is <20mL/min. Will get a random level on 11/14. Pending Level: 11/14/24 @ 0600- random with AM labs Pharmacy Service will continue to monitor and adjust dosing as required.
[2024-11-12] MEDS: Magnesium Sulfate 4gm/100mL 4 GM/100 ML IV.SOLN. IV (18:21)
[2024-11-12] MEDS: Vasopressin 20 UNITS in 0.9% Normal Saline (50mL Bag) 24 ML 3 UNITS CONT INF (19:45)
[2024-11-12] MEDS: Sodium Bicarbonate 150 MEQ in Dextrose 5%-Water (1000mL Bag) 1,000 ML 100 MEQ IV (19:45)
--- NOTE | 2024-11-12 19:57 | CON.PCM.CC_ITS ---
HPI Consult Data Date of Consult: 11/12/24 HPI Narrative Reason for Consultation: Septic shock, UTI, Pneumonia HPI Narrative: NATALIA BURDICK, is a 79 M who presents to the ED after it appears that he was perceived by his brother over the phone to be confused or not his usual self. Patient was recently hospitalized and discharged to rehab for 10d for UTI and appears to have generally failed to thrive with self care at home. He is confused at the time of encounter, and is disoriented and only able to provide partial history. He reports some diarrhea and problems with urination. Overall, he minimizes the amount and duration of diarrhea he has been experiencing. He has a wet cough, but denies fever, chills and rigors. He denies chest pain. He has not taken OTC NSAIDs. Remainder of history is gathered from collateral sources, including the bedside ICU nurse. He has received 3L IVF resuscitation overall but has required initiation of pressors and is now on NE at 30mcg/min and vasopressin at 0.04 mcg/kg/min. He has made some amount of urine into an indwelling Lau catheter and it does appear somewhat cloudy to nurse. He has a new CVC and is on HCO3 drip at 100cc/hr for a NAGMA on labs. 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 Primary osteoarthritis, right shoulder Right shoulder pain Home Medications ?Medication ?Instructions ?Recorded ?Last Taken ?Type aspirin 81 mg chewable tablet 81 mg PO DAILY HEART 11/11/24 History fish oil-dha-epa 1,200 mg-144 1,200 ea PO BID suppleme nt 10/27/13 11/23/19 History mg-216 mg capsule metformin 850 mg tablet 850 mg PO BIDCM DIABETES 09/17/24 History simvastatin 20 mg tablet 40 mg PO QHS CHOLESTEROL 11/11/24 History fluticasone furoate 100 1 puff IH DAILY PRN nasel 11/23/19 History mcg-vilanterol 25 mcg/dose congeestion inhalation powder lisinopril 2.5 mg tablet 2.5 mg PO DAILY BP 11/23/19 11/11/24 History allopurinol 300 mg tablet 300 mg PO DAILY gout 4 11/12/24 History atenolol 50 mg tablet 25 mg PO Q24H BP 10/23/23 History furosemide 20 mg tablet 20 mg PO DAILY edema 4 Unknown History mupirocin 2 % topical ointment 1 applic topical DAILY PRN 10/23/23 Unknown History laceraction omeprazole 40 mg capsule,delayed 40 mg PO DAILY ACID R EFLUX 10/23/23 09/17/24 History release metformin 1,000 mg tablet 500 mg PO DAILY diabetes 11/11/24 History midodrine 5 mg tablet 10 mg (2 x 5 mg) PO TIDCM 30 days 09/23/24 Unknown Rx #180 tabs tamsulosin 0.4 mg capsule 0.4 mg PO DAILY@1730 #30 cap s 09/23/24 Unknown Rx Allergy/AdvReac Type Severity Reaction Status Date / Time No Known Allergies Allergy Verified 11/12/24 08:22 Surgical History History of heart bypass surgery Social History household members: none Smoking Status: Former smoker alcohol intake: former ROS Review of Systems ROS Unobtainable: due to mental status Objective Data Objective Data Vital Signs: Vital Signs Last response 3 Temperature 36.6 C 11/12/24 15:36 Temperature Source Oral 11/12/24 15:36 Pulse Rate 73 11/12/24 18:07 Respiratory Rate 20 H 11/12/24 18:07 Blood Pressure 88/61 L 11/12/24 18:07 Blood Pressure Mean 70 11/12/24 18:07 Pulse Ox 100 11/12/24 17:00 Oxygen Delivery Method Nasal Cannula 11/12/24 15:36 Oxygen Flow Rate (L/min) 2 11/12/24 15:36 I&O: I&O Last 24 Hours 3 11/11/24 11/12/24 11/12/24 23:59 11:59 23:59 Intake Total 841.67 / 2966.74 2125.07 / 2966.74 Balance 841.67 / 2966.74 2125.07 / 2966.74 I&O: Total Stay 3 11/12/24 08:21 thru 11/12/24 18:07 Intake Total 2966.74 Balance 2966.74 Current Meds Ordered / Administered: Current meds ordered / Administered 3 Generic Name Dose Route Start Last Admin Trade Name Freq PRN Reason Stop Dose Admin Acetaminophen 650 mg 11/12/24 18:50 Acetaminophen 325 Mg Tablet PO Q6H PRN PRN Pain 1-10 Or Fever >100.7 Albuterol Sulfate 2.5 mg 11/12/24 18:50 Albuterol 2.5 Mg/3 Ml Vial.Neb. INHALATION Q2H PRN PRN SOB &/OR WHEEZING Allopurinol 300 mg 11/13/24 10:00 Allopurinol 300 Mg Tablet PO DAILY [facility] Aspirin 81 mg 11/13/24 08:00 Aspirin 81 Mg Tab.Chew PO BREAKFAST [facility] Atorvastatin Calcium 20 mg 11/12/24 22:00 Atorvastatin Calcium 20 Mg Tablet PO QHS [facility] Folic Acid 1 mg 11/13/24 08:00 Folic Acid 1 Mg Tablet PO DAILY@0800 [facility] Glucagon 1 mg 11/12/24 18:50 Glucagon 1 Mg/Ml Syringe IM X1 PRN HYPOGLYCEMIA Protocol Heparin Sodium (Porcine) 5,000 unit 11/12/24 22:00 Heparin Injection (Vial) 5,000 Unit/Ml Vial SC Q12 [facility] Norepinephrine Bitartrate 8 mg 250 mls @ 9.375 mls/hr 11/12/24 15:15 11/12/24 18:07 / Sodium Chloride CONT INF 30 mcg/min .[id number] [facility] 56.3 mls/hr Titration Protocol 5 MCG/MIN Sodium Chloride 1,000 mls @ 200 mls/hr 11/12/24 15:25 11/12/24 15:48 IV 11/12/24 20:24 200 mls/hr .Q5H [facility] Administration Protocol Sodium Chloride 1,000 mls @ 75 mls/hr 11/12/24 17:06 11/12/24 18:01 IV 11/13/24 06:25 75 mls/hr .[id number] [facility] Administration Protocol Magnesium Sulfate 4 gm in 100 mls @ 25 mls/hr 11/12/24 17:06 11/12/24 18:21 IV 11/12/24 21:05 25 mls/hr X1 ONE Administration Piperacillin Sod/Tazobactam 50 mls @ 12.5 mls/hr 11/12/24 17:06 11/12/24 17:30 Sod 3.375 gm/ Sodium Chloride IV 11/12/24 21:05 12.5 mls/hr X1 STA Administration Vancomycin IV-PHARMACY TO DOSE 500 mls @ 250 mls/hr 11/12/24 17:06 1 each/ Sodium Chloride IV X1 PRN Rx to Dose Protocol Sodium Bicarbonate 150 meq/ 1,150 mls @ 100 mls/hr 11/12/24 17:55 Dextrose IV .[id number] [facility] Dextrose 250 mls @ 0 mls/hr 11/12/24 18:50 Dextrose 10%-Water IV .Q0M PRN HYPOGLYCEMIA Protocol As Directed Piperacillin Sod/Tazobactam 50 mls @ 12.5 mls/hr 11/13/24 10:00 Sod 3.375 gm/ Sodium Chloride IV Q12 [facility] Vasopressin 20 units/ Sodium 25 mls @ 3 mls/hr 11/12/24 18:50 Chloride CONT INF .Q8H20M [facility] 0.04 UNITS/MIN Insulin Human Lispro 0 unit 11/12/24 18:50 Insulin Lispro 100 Unit/Ml Insuln.Pen SC ACHS [facility] Protocol Lorazepam 0.5 mg 11/12/24 18:50 Lorazepam 0.5 Mg Tablet PO Q2H PRN PRN CIWA score >/=12 Protocol Melatonin 3 mg 11/12/24 18:50 Melatonin 3 Mg Tablet PO QHS PRN PRN INSOMNIA Metoprolol Tartrate 12.5 mg 11/12/24 22:00 Metoprolol Tartrate 25 Mg Tablet PO BID [facility] Protocol Midodrine 10 mg 11/12/24 18:50 Midodrine Hcl 5 Mg Tablet PO TIDCM [facility] Ondansetron HCl 4 mg 11/12/24 18:50 Ondansetron 4 Mg/2 Ml Vial IV Q8H PRN PRN NAUSEA/VOMITING Pantoprazole Sodium 40 mg 11/13/24 10:00 Pantoprazole Sodium 40 Mg Tablet PO DAILY [facility] Senna/Docusate Sodium 2 tablet 11/12/24 18:50 Senna/Docusate Sodium 1 Tablet PO BID PRN PRN Constipation Thiamine HCl 100 mg 11/13/24 08:00 [facility]amine [facility]com[facility] Protocol 1 lab 11/14/24 04:00 Vancomycin Trough/Random Due 11/14/24 08:00 DAILY [facility] Physical Exam Const alert Constitutional Narrative: Disoriented to place and time General Appearance: cooperative and ill appearing HEENT normocephalic, head/scalp atraumatic and moist oral mucous membranes Eyes PERRL, EOMs intact bilaterally and no scleral icterus Neck full ROM, supple and no JVD Neck Narrative: No brudzinski or kernig Chest inspection of chest normal Resp normal respiratory effort Resp Narrative: No Kussmaul Effort and Inspection: able to speak in complete sentences Auscultation: diminished lung sounds localized (left base, coarse otherwise as well in LLL) Cardio regular rate, no murmurs, no rub, no gallops and no JVD GI normal to inspection, nondistended, normoactive bowel sounds, soft to palpation and non-tender no CVA tenderness Extremity no clubbing, cyanosis or edema Skin no rashes or lesions noted Neuro CN's II-XII intact bilaterally, moves all extremities and no focal motor deficits Neuro Narrative: Dysarthric, but no aphasia Psych cooperative Lab / Micro Data 11/12/24 08:58 11/12/24 08:58 Labs: Laboratory Results - last 24 hr 11/12/24 08:40: POC Glucose 100 11/12/24 08:58: WBC 9.6, RBC 3.22 L, Hgb 9.9 L, Hct 30.0 L, MCV 93.2, MCH 30.7, MCHC 33.0, RDW Std Deviation 59.2 H, RDW Coeff of Elida 17.3 H, Plt Count 149 L, MPV 11.6, Immature Gran % (Auto) 0.800, Neut % (Auto) 86.1 H, Lymph % (Auto) 4.6 L, Isabella % (Auto) 7.4, Eos % (Auto) 0.9, Baso % (Auto) 0.2, Absolute Neuts (auto) 8.3 H, Absolute Lymphs (auto) 0.44 L, Nucleated RBC % 0.2, PT 16.2 H, INR 1.3, APTT 31.7, Sodium 135 L, Potassium 4.5, Chloride 112 H, Carbon Dioxide 11.0 L, Anion Gap 12, BUN 76 H, Creatinine 4.35 H, Estim Creat Clear Calc 15.29, Est GFR (MDRD) Af Amer 17 L, Est GFR (MDRD) Non-Af 14 L, BUN/Creatinine Ratio 17.5, Glucose 79, Calcium 6.2 L*, Magnesium 1.4 L, Total Bilirubin 0.50, Direct Bilirubin 0.33 H, AST 23, ALT 17, Alkaline Phosphatase 70, Troponin I High Sens 136 H*, B-Natriuretic Peptide 354.3 H, Total Protein 5.0 L, Albumin 1.6 L, Globulin 3.4, Ethyl Alcohol < 3.0 11/12/24 09:10: Lactic Acid 1.1 11/12/24 11:01: Urine Color Yellow, Urine Clarity Cloudy, Urine pH 6.0, Ur Specific [place] 1.015, Urine Protein 100 H, Urine Glucose (UA) Normal, Urine Ketones Negative, Urine Occult Blood 150 H, Urine Nitrite Positive H, Urine Bilirubin Negative, Urine Urobilinogen 1 H, Ur Leukocyte Esterase 500 H, Urine RBC 10-25 SEEN, Urine WBC 25-50 SEEN, Ur Squamous Epith Cells 0-5 SEEN, Ur Transition Epith Cell 0-5 SEEN, Ur Renal Epithelial Cell 10-25 SEEN, Urine Bacteria 2+, Urine Mucus 0 SEEN, Urine Opiates Screen NEGATIVE, Urine Methadone Screen NEGATIVE, Ur Barbiturates Screen NEGATIVE, Ur Phencyclidine Scrn NEGATIVE, Ur Amphetamines Screen NEGATIVE, MDMA (Ecstasy) Screen NEGATIVE, U Benzodiazepines Scrn NEGATIVE, Urine Cocaine Screen NEGATIVE, U Cannabinoids Screen NEGATIVE, Ur Drug Screen Comment 11/12/24 12:02: Ionized Calcium 1.02 L 11/12/24 17:21: Lactic Acid 1.2 Micro: Microbiology 11/12/24 08:50 Mucosa - Nose SARS-CoV-2, Influenza & RSV (PCR) - Final ABG Data ABG results: ABG 11/12/24 17:33 Specimen Type ART Sample Site R Radial pH 7.18 L* Bicarbonate Actual 11.4 L Total CO2 12 Base Excess -17 L O2 Saturation 95 O2 % 2.0 ABG pCO2 30.8 L ABG pO2 94 Anthony Test N/A O2 Delivery Device Cannula Vent Mode Not entered Crit Call To/Read Back Yes Blood Gas Notified Whom Dr Seymour Blood Gas Notified Time 17:37:28 Imaging Radiology Impression Chest X-Ray 11/12/24 09:15 IMPRESSION: No acute cardiopulmonary process. Reading Location: [id number] Chest X-Ray 11/12/24 16:10 IMPRESSION: Right internal jugular catheter with tip in the superior vena cava. No acute consolidation, pleural effusion or pneumothorax. Reading Location: [id number] On my personal interpretation of the CXR, there appears to be a density overlying the LLL and retrocardiac space, representing either atelectasis and PNA or hemidiaphragmatic elevation on the LEFT or both. Assessment and Plan . Assessment and plan: ICU Problems: Septic shock NAGMA/RTA SERG with oliguria hypomagnesemia hypocalcemia UTI Plan: Agree with HCO3 drip at 100, but will need repeat BMP in 4-6 hours to assess efficacy of adding HCO3 as opposed to possible inclement CRRT/SLED CT abdomen non contrast eval for stones Zosyn appropriate for now, but first line for urinary generally cipro or cefepime If mentation not improving, may require LP, given possibility of HCAP/CAP on CXR, strep a possibility strict I/O ECHO routine Nephro consultation, MARTINE Bill Dodge MD pCCM [facility] Critical Care Time: 60 min The entirety of this encounter was done via Telemedicine
[2024-11-12] MEDS: Sodium Bicarbonate 8.4% 50 ML Syringe 50 MEQ IV (20:49)
[2024-11-12] MEDS: Norepinephrine 8 MG in 0.9% Normal Saline (250mL Bag) 242 ML 56.3 MG CONT INF (21:14)
[2024-11-12 22:21] LABS: Magnesium 2.9 mg/dL (1.6-2.6)
[2024-11-12 22:23] LABS: Bedside Glucose 146 mg/dL (74-106)
[2024-11-12] MEDS: Heparin Injection (Vial) 5,000 UNIT/ML VIAL 5000 UNIT SC (23:10)
[2024-11-12] MEDS: Midodrine HCl 5 MG Tablet 10 MG PO (23:10)
[2024-11-12] MEDS: Atorvastatin Calcium 20 MG Tablet PO (23:11)
[2024-11-12] MEDS: Hydrocortisone Sod Succinate 100 MG/2 ML Vial 50 MG IV (23:26)
[2024-11-13] VITALS (78 sets, daily range): BP systolic 73–121; BP diastolic 48–92; PULSE 61–72; RESP 15–25; TEMP 35.6–36.6; O2SAT 94–100; BMI 29.6
[2024-11-13] MEDS: Norepinephrine 8 MG in 0.9% Normal Saline (250mL Bag) 242 ML 93.8 MG CONT INF (00:47)
[2024-11-13] MEDS: TITRATION PARAMETER CHANGE 1 EACH IV ×2 (01:07→14:11)
[2024-11-13] MEDS: Norepinephrine 16 mg/250 mL 0.9% NS 46.9 MG CONT INF ×2 (03:32→09:12)
[2024-11-13 03:36] LABS: Absolute Lymphocyte Count 0.56 X10^3/uL (0.83-4.51); Absolute Neutrophil Count 14.8 X10^3/uL (2.0-7.7); Basophil# 0.05 X10^3/uL; Basophil% 0.3 % (0-1); Eosinophil# 0.14 X10^3/uL; Eosinophils% 0.8 % (0-5); Hematocrit 32.2 % (40-54); Hemoglobin 10.5 g/dL (13.0-16.5); Lymphocyte # 0.56 X10^3/ul (0.83-4.51); Lymphocyte % 3.4 % (19-41); Mean Corp Hgb Conc 32.6 g/dL (32-36); Mean Corpuscular Hgb 30.3 pg (27.0-32.0); Mean Corpuscular Volume 93.1 fL (80-94); Mean Platelet Vol. 11.3 fl (6.2-12.0); NRBC Flagged by Analyzer 0.5 % (0-5); Neutrophil # 14.84 X10^3/uL (2.7-7.7); Neutrophil % 89.4 % (47-70); POSITIVE DIFFERENTIAL YES; Platelet Count 247 K/mm3 (150-450); RBC Distribution Width CV 17.7 % (11.6-14.6); RBC Distribution Width SD 60.3 fl (35.1-43.9); Red Blood Count 3.46 M/mm3 (4.6-6.2); White Blood Count 16.6 K/mm3 (4.4-11.0)
[2024-11-13 04:32] LABS: Anion Gap 18 (5-15); BUN 94 mg/dL (7-18); BUN/Creat Ratio 18.8 RATIO (10-20); Calcium,Total 7.3 mg/dL (8.5-10.1); Chloride 104 mmol/L (98-107); Creatinine, Serum 5.01 mg/dL (0.70-1.30); EST Glomerular Filtration Rate 12 mL/min (>60); Est Glom Filt Rate - Afr Amer 15 mL/min (>60); Estimated Creatinine Clearance 13.33 ml/min; Glucose 252 mg/dL (74-106); Magnesium 2.5 mg/dL (1.6-2.6); Phosphorus 6.7 mg/dL (2.5-4.9); Potassium 6.1 mmol/L (3.5-5.1); Sodium Level 133 mmol/L (136-145)
[2024-11-13] MEDS: Sodium Bicarbonate 150 MEQ in Dextrose 5%-Water (1000mL Bag) 1,000 ML 100 MEQ IV ×2 (04:54→17:16)
[2024-11-13] MEDS: Vasopressin 20 UNITS in 0.9% Normal Saline (50mL Bag) 24 ML 3 UNITS CONT INF ×2 (04:54→14:01)
[2024-11-13] MEDS: Dextrose 10%-Water 250 ML 999 ML IV (05:22)
[2024-11-13] MEDS: Insulin Lispro 10 UNIT in Syringe 0 ML 6 UNIT IV (05:33)
[2024-11-13] MEDS: Sodium Polystyrene Sulfonate 15 GM/60 ML UDC PO (05:33)
[2024-11-13] MEDS: Hydrocortisone Sod Succinate 100 MG/2 ML Vial 50 MG IV ×3 (05:43→20:58)
--- NOTE | 2024-11-13 05:50 | PCM.HOSP.N ---
Hospitalist Note Potassium 6.1, will initiate hyperkalemic order set protocol and repeat level at 7 AM.
[2024-11-13 06:03] LABS: Bedside Glucose 266 mg/dL (74-106)
[2024-11-13] MEDS: Albuterol *CONC* 2.5mg/0.5mL VIAL.NEB. 10 MG INHALATION (06:38)
[2024-11-13] MEDS: Insulin Lispro 100 UNIT/ML INSULN.PEN SC ×4 (06:42→21:03)
--- NOTE | 2024-11-13 08:18 | NURSING ---
spoke at length w/pt's POA, his brother Dr. Steve Sanders. Discussed VS, meds, pt wishes and Dr. Chakraborty plan. He states he does not want the pt to receive dialysis. verified per Gabby Weaver RN.
[2024-11-13 08:24] LABS: Bedside Glucose 289 mg/dL (74-106)
[2024-11-13 08:29] LABS: Anion Gap 16 (5-15); BUN 98 mg/dL (7-18); Calcium,Total 7.3 mg/dL (8.5-10.1); Chloride 103 mmol/L (98-107); Creatinine, Serum 5.16 mg/dL (0.70-1.30); EST Glomerular Filtration Rate 12 mL/min (>60); Est Glom Filt Rate - Afr Amer 14 mL/min (>60); Estimated Creatinine Clearance 13.16 ml/min; Glucose 325 mg/dL (74-106); Potassium 5.7 mmol/L (3.5-5.1); Sodium Level 133 mmol/L (136-145)
--- NOTE | 2024-11-13 08:32 | PCM.HOSP.N ---
Hospitalist Note Nursing staff spoke with patient's brother Steve over the phone this morning. As noted yesterday, Steve is patient's primary point of contact and is a retired physician. He stated clearly to nursing staff that patient would not want hemodialysis. Patient still does not have capacity at this time. Noted here that we will not do hemodialysis for this patient.
[2024-11-13] MEDS: Aspirin 81 MG TAB.CHEW PO (09:52)
[2024-11-13] MEDS: Allopurinol 300 MG Tablet PO (09:53)
[2024-11-13] MEDS: Folic Acid 1 MG Tablet PO (09:53)
[2024-11-13] MEDS: Midodrine HCl 5 MG Tablet 10 MG PO ×3 (09:53→16:36)
[2024-11-13] MEDS: Thiamine Hydrochloride 100 MG Tablet PO (09:54)
[2024-11-13] MEDS: Heparin Injection (Vial) 5,000 UNIT/ML VIAL 5000 UNIT SC ×2 (09:54→20:58)
[2024-11-13] MEDS: Pantoprazole Sodium 40 MG Tablet PO (09:55)
[2024-11-13] MEDS: Piperacil/Tazobactam 3.375 GM in 0.9% Normal Saline (50mL MB+) 50 ML IV ×2 (10:13→20:57)
[2024-11-13] MEDS: 0.9% Saline Lock 10 ML Syringe IV ×2 (10:18→16:34)
--- NOTE | 2024-11-13 10:32 | PCM.PN.HOSP ---
Reason for Visit Reason for Visit: Diagnoses Hypocalcemia (11/12/24) Dehydration (11/12/24) Hypotension, unspecified (11/12/24) Acute kidney failure, unspecified (11/12/24) Urinary tract infection, site not specified (11/12/24) Adult failure to thrive (11/12/24) Other specified abnormal findings of blood chemistry (11/12/24) Subjective Subjective Saw patient at bedside this morning. Patient was making appropriate eye contact but not able to answer questions appropriately for me. He appeared very fatigued but otherwise is breathing comfortably and in no acute distress. Objective Data Objective Data Vital Signs: Vital Signs Temp Pulse Resp BP Pulse Ox O2 Del Method O2 Flow Rate 97.3 F L 71 18 98/86 H 98 Nasal Cannula 2 11/13/24 04:00 11/13/24 09:54 11/13/24 07:00 11/13/24 10:00 11/13/24 07:00 11/13/24 08:15 11/13/24 08:15 Oxygen Flow Rate (L/min) 2 Oxygen Delivery Method Nasal Cannula Weight: 91.1 kg Body Mass Index (BMI) 29.6 Intake & Output: Intake and Output for Last 24 Hours 11/11/24 11/12/24 11/13/24 23:59 23:59 23:59 Intake Total 5121.38 / 5140.13 2132.48 / 2132.48 Output Total 400 / 400 Balance 5121.38 / 5140.13 1732.48 / 1732.48 Lab / Micro Data 11/13/24 03:10 11/13/24 14:10 Labs: Laboratory Results - last 24 hr 11/12/24 08:58: Magnesium 1.4 L 11/12/24 11:01: Urine Color Yellow, Urine Clarity Cloudy, Urine pH 6.0, Ur Specific [place] 1.015, Urine Protein 100 H, Urine Glucose (UA) Normal, Urine Ketones Negative, Urine Occult Blood 150 H, Urine Nitrite Positive H, Urine Bilirubin Negative, Urine Urobilinogen 1 H, Ur Leukocyte Esterase 500 H, Urine RBC 10-25 SEEN, Urine WBC 25-50 SEEN, Ur Squamous Epith Cells 0-5 SEEN, Ur Transition Epith Cell 0-5 SEEN, Ur Renal Epithelial Cell 10-25 SEEN, Urine Bacteria 2+, Urine Mucus 0 SEEN, Urine Opiates Screen NEGATIVE, Urine Methadone Screen NEGATIVE, Ur Barbiturates Screen NEGATIVE, Ur Phencyclidine Scrn NEGATIVE, Ur Amphetamines Screen NEGATIVE, MDMA (Ecstasy) Screen NEGATIVE, U Benzodiazepines Scrn NEGATIVE, Urine Cocaine Screen NEGATIVE, U Cannabinoids Screen NEGATIVE, Ur Drug Screen Comment 11/12/24 12:02: Ionized Calcium 1.02 L 11/12/24 17:21: Lactic Acid 1.2 11/12/24 22:04: POC Glucose 146 H 11/12/24 22:05: Magnesium 2.9 H 11/13/24 03:10: WBC 16.6 H, RBC 3.46 L, Hgb 10.5 L, Hct 32.2 L, MCV 93.1, MCH 30.3, MCHC 32.6, RDW Std Deviation 60.3 H, RDW Coeff of Elida 17.7 H, Plt Count 247, MPV 11.3, Immature Gran % (Auto) 3.100 H, Neut % (Auto) 89.4 H, Lymph % (Auto) 3.4 L, Hamlin % (Auto) 3.0, Eos % (Auto) 0.8, Baso % (Auto) 0.3, Absolute Neuts (auto) 14.8 H, Absolute Lymphs (auto) 0.56 L, Nucleated RBC % 0.5, Sodium 133 L, Potassium 6.1 H*, Chloride 104, Carbon Dioxide 11.0 L, Anion Gap 18 H, BUN 94 H, Creatinine 5.01 H, Estim Creat Clear Calc 13.33, Est GFR (MDRD) Af Amer 15 L, Est GFR (MDRD) Non-Af 12 L, BUN/Creatinine Ratio 18.8, Glucose 252 H, Calcium 7.3 L, Phosphorus 6.7 H, Magnesium 2.5, TSH 2.510 11/13/24 05:39: POC Glucose 266 H 11/13/24 06:40: POC Glucose 289 H 11/13/24 08:00: Sodium 133 L, Potassium 5.7 H, Chloride 103, Carbon Dioxide 14.0 L, Anion Gap 16 H, BUN 98 H, Creatinine 5.16 H, Estim Creat Clear Calc 13.16, Est GFR (MDRD) Af Amer 14 L, Est GFR (MDRD) Non-Af 12 L, BUN/Creatinine Ratio 19.0, Glucose 325 H, Calcium 7.3 L Micro: Microbiology 11/12/24 11:01 Urine, Catheterized Urine Culture - Preliminary GNR 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 11/12/24 21:50 Mucosa - Nose Respiratory Panel (PCR) - Final 11/12/24 08:50 Mucosa - Nose SARS-CoV-2, Influenza & RSV (PCR) - Final ABG Data ABG results: ABG 11/12/24 17:33 Specimen Type ART Sample Site R Radial pH 7.18 L* Bicarbonate Actual 11.4 L Total CO2 12 Base Excess -17 L O2 Saturation 95 O2 % 2.0 ABG pCO2 30.8 L ABG pO2 94 Anthony Test N/A O2 Delivery Device Cannula Vent Mode Not entered Crit Call To/Read Back Yes Blood Gas Notified Whom Dr Seymour Blood Gas Notified Time 17:37:28 Radiography Diagnostic Testing: Radiology Impression Chest X-Ray 11/12/24 16:10 IMPRESSION: Right internal jugular catheter with tip in the superior vena cava. No acute consolidation, pleural effusion or pneumothorax. Reading Location: [facility] Physical Exam Const alert, no apparent distress and average body habitus Constitutional Narrative: Elderly male, somewhat chronically ill-appearing, fatigued, alert to person and place but otherwise not answering questions appropriately, laying back comfortably in bed, in no acute distress. General Appearance: cooperative and comfortable HEENT normocephalic, head/scalp atraumatic, hearing grossly normal bilaterally and nasal mucous membranes and turbinates normal Eyes PERRL, EOMs intact bilaterally and conjunctivae normal Neck full ROM Chest inspection of chest normal Resp normal respiratory effort, normal air movement, no use of accessory muscles and clear to auscultation bilaterally Cardio regular rate, regular rhythm, no murmurs and peripheral pulses 2+ throughout GI normal to inspection, nondistended, normoactive bowel sounds, soft to palpation, non-tender and non-distended Back/Spine normal ROM Extremity normal to inspection and no pedal edema Skin no rashes or lesions noted Neuro moves all extremities and no focal motor deficits Assessment & Plan Assessment/Plan (1) Septic shock: (2) Acute UTI: (3) Acute renal failure: (4) Adult failure to thrive: PLAN: Plan Patient is a 79-year-old male who presented [facility] ED on 11/12/2024 with worsening weakness. 1. Septic shock suspected secondary to UTI ? Hatchery Manager following. Met sepsis criteria on admit with hypotension, encephalopathy, severe SERG and suspected urinary source. UA showed positive nitrites, 500 leukocyte esterase, 2+ bacteria. Urine culture prelim positive for gram-negative rods. Notably was hospitalized in September for sepsis secondary to UTI and urine culture grew Klebsiella that was sensitive to ceftriaxone. Continue treatment with IV ceftriaxone for now. Patient was not fluid responsive on admit and is currently requiring high dose of Levophed along with vasopressin and stress dose steroids. Continue these treatments for now, appreciate inspector mechanical recommendations. 2. Severe SERG with anion gap metabolic acidosis ? Nephrology following. Baseline creatinine 1.2-1.4, creatinine 4.35 on admit and worsened to 5.16 on hospital day 2. Urine output oliguric. Presumed prerenal SERG with likely ATN secondary to septic shock as noted above. Severe metabolic acidosis with bicarb anatoliy of 11. Patient and family do not want hemodialysis for him. Labs slightly improving on afternoon of 11/13, will continue to treat with bicarbonate drip for now. Continue to monitor daily BMP and urine output. 3. Acute metabolic encephalopathy ? Hatchery Manager following as above. Presume secondary to septic shock with possible alcohol abuse below contributing. Alert and oriented to person place but not to time and does not have capacity to make decisions. [facility] protocol in place. Continue to monitor closely. 4. Hyperkalemia ? Potassium 6.1 on morning of 11/13, secondary to SERG. Treated medically with improvement to 5.5 by afternoon of 11/13. Continue to monitor daily BMP. 5. Type 2 diabetes mellitus with hyperglycemia ? Holding home oral diabetic agents. Hyperglycemia worsening presume secondary to stress dose steroids for septic shock. Treating with 8 units of Humalog and sliding scale insulin with meals, adjust as needed. 6. Hypocalcemia ? Presume secondary to severe SERG. Calcium anatoliy of 6.2 on 11/12, improved with IV repletion. Continue to monitor daily. 7. Concern for alcohol abuse ? Patient is a poor historian but home health care noted that he had multiple alcohol bottles in his house recently. Will continue CIIL protocol here, no signs of alcohol withdrawal to this point. 8. Acute on chronic debility with adult failure to thrive ? PT/OT/case management following. Patient critically ill, continue treatment as above. 9. Concern for A-fib ? Had concern for A-fib on admission given findings on the monitor. Was started on Lopressor with improvement, has appeared to be stable in normal sinus rhythm since then. No previously documented history of A-fib. Will hold on blood thinner at this time. Continue cardiac monitoring. Chronic medical conditions: ? History of gout: Holding home allopurinol given severe SERG. ? Hypertension: Holding home meds in setting of septic shock. ? GERD: Continue home PPI. ? History of open heart surgery DVT prophylaxis: Heparin subcu CODE STATUS: DNR CCA, DNI Expected disposition: TBD Total clinical time spent by myself addressing the patient's medical issues, reviewing all the data, and collaborating with patient's care team: 50 minutes. Charges/Coding Visit Charges Inpatient E&M: 03870 [facility] Hosp L3
[2024-11-13 12:35] LABS: Bedside Glucose 315 mg/dL (74-106)
--- NOTE | 2024-11-13 13:07 | PN.CC_ITS ---
Objective Data Objective Data Vital Signs: Vital Signs Last response 3 Temperature 36.1 C L 11/13/24 12:30 Temperature Source Core 11/13/24 12:30 Pulse Rate 71 11/13/24 12:30 Respiratory Rate 22 H 11/13/24 12:30 Respiratory Effort Normal 11/13/24 12:46 Respiratory Depth Shallow 11/13/24 12:46 Respiratory Pattern Normal 11/13/24 12:46 Blood Pressure 94/69 11/13/24 12:30 Blood Pressure Mean 77 11/13/24 12:30 Blood Pressure Source Monitor 11/13/24 12:30 Blood Pressure Position Semi-Fowlers 11/13/24 12:30 Blood Pressure Location Left Arm 11/13/24 12:30 Pulse Ox 98 11/13/24 12:30 Oxygen Delivery Method Room Air 11/13/24 12:46 Oxygen Flow Rate (L/min) 2 11/13/24 10:00 I&O: I&O Last 24 Hours 3 11/12/24 11/13/24 11/13/24 23:59 11:59 23:59 Intake Total 4279.71 / 5140.13 2652.82 / 3107.52 454.70 / 3107.52 Output Total 550 / 550 Balance 4279.71 / 5140.13 2102.82 / 2557.52 454.70 / 2557.52 I&O: Total Stay 3 11/12/24 08:21 thru 11/13/24 12:30 Intake Total 8228.90 Output Total 550 Balance 7678.90 Current Meds Ordered / Administered: Current meds ordered / Administered 3 Generic Name Dose Route Start Last Admin Trade Name Freq PRN Reason Stop Dose Admin Acetaminophen 650 mg 11/12/24 18:50 Acetaminophen 325 Mg Tablet PO Q6H PRN PRN Pain 1-10 Or Fever >100.7 Albuterol Sulfate 2.5 mg 11/12/24 18:50 Albuterol 2.5 Mg/3 Ml Vial.Neb. INHALATION Q2H PRN PRN SOB &/OR WHEEZING Allopurinol 300 mg 11/13/24 10:00 11/13/24 09:53 Allopurinol 300 Mg Tablet PO 300 mg DAILY LOUIS Administration Aspirin 81 mg 11/13/24 08:00 11/13/24 09:52 Aspirin 81 Mg Tab.Chew PO 81 mg BREAKFAST L[place]IS Administration Atorvastatin Calcium 20 mg 11/12/24 22:00 11/12/24 23:11 Atorvastatin Calcium 20 Mg Tablet PO 20 mg QHS LOUIS Administration Folic Acid 1 mg 11/13/24 08:00 11/13/24 09:53 Folic Acid 1 Mg Tablet PO 1 mg DAILY@0800 L[facility]IS Administration Glucagon 1 mg 11/12/24 18:50 Glucagon 1 Mg/Ml Syringe IM X1 PRN HYPOGLYCEMIA Protocol Heparin Sodium (Porcine) 5,000 unit 11/12/24 22:00 11/13/24 09:54 Heparin Injection (Vial) 5,000 Unit/Ml Vial SC 5,000 unit Q12 LOUIS Administration Hydrocortisone Sodium Succinate 50 mg 11/12/24 22:00 11/13/24 05:43 Hydrocortisone Sod Succinate 100 Mg/2 Ml Vial IV 50 mg Q8 L[place]IS Administration Vancomycin IV-PHARMACY TO DOSE 500 mls @ 250 mls/hr 11/12/24 17:06 1 each/ Sodium Chloride IV X1 PRN Rx to Dose Protocol Sodium Bicarbonate 150 meq/ 1,150 mls @ 100 mls/hr 11/12/24 17:55 11/13/24 12:13 Dextrose IV 100 mls/hr .[id number] L[place]IS Infusion Dextrose 250 mls @ 0 mls/hr 11/12/24 18:50 Dextrose 10%-Water IV .Q0M PRN HYPOGLYCEMIA Protocol As Directed Piperacillin Sod/Tazobactam 50 mls @ 12.5 mls/hr 11/13/24 10:00 11/13/24 10:13 Sod 3.375 gm/ Sodium Chloride IV 12.5 mls/hr Q12 LOUIS Administration Vasopressin 20 units/ Sodium 25 mls @ 3 mls/hr 11/12/24 18:50 11/13/24 12:12 Chloride CONT INF 0.04 units/min .[id number] L[place]IS 3 mls/hr Infusion 0.04 UNITS/MIN Sodium Chloride 100 mls @ 15 mls/hr 11/12/24 21:38 IV .Q6H40M PRN Saline Flush Sodium Chloride 100 mls @ 15 mls/hr 11/12/24 21:38 IV .Q6H40M PRN Additional IVPB Infusion Norepinephrine Bitartrate 16 250 mls @ 4.688 mls/hr 11/13/24 00:45 11/13/24 12:30 mg/ Sodium Chloride CONT INF 35 mcg/min .[id number] LOUIS 32.8 mls/hr Titration Protocol 5 MCG/MIN Insulin Human Lispro 0 unit 11/12/24 18:50 11/13/24 12:11 Insulin Lispro 100 Unit/Ml Insuln.Pen SC 6 u ACHS LOUIS Administration Protocol Lorazepam 0.5 mg 11/12/24 18:50 Lorazepam 0.5 Mg Tablet PO Q2H PRN PRN CIWA score >/=12 Protocol Melatonin 3 mg 11/12/24 18:50 Melatonin 3 Mg Tablet PO QHS PRN PRN INSOMNIA Metoprolol Tartrate 12.5 mg 11/12/24 22:00 11/13/24 09:54 Metoprolol Tartrate 25 Mg Tablet PO Not Given BID [facility] Protocol Midodrine 10 mg 11/12/24 18:50 11/13/24 12:12 Midodrine Hcl 5 Mg Tablet PO 10 mg TIDCM [place]IS Administration Ondansetron HCl 4 mg 11/12/24 18:50 Ondansetron 4 Mg/2 Ml Vial IV Q8H PRN PRN NAUSEA/VOMITING Pantoprazole Sodium 40 mg 11/13/24 10:00 11/13/24 09:55 Pantoprazole Sodium 40 Mg Tablet PO 40 mg DAILY L[place]IS Administration Senna/Docusate Sodium 2 tablet 11/12/24 18:50 Senna/Docusate Sodium 1 Tablet PO BID PRN PRN Constipation Sodium Chloride 10 - 40 ml 11/12/24 21:38 11/13/24 10:18 0.9% Saline Lock 10 Ml Syringe IV 10 ml UD PRN Administration SALINE FLUSH Thiamine HCl 100 mg 11/13/24 08:00 11/13/24 09:54 Thiamine Hydrochloride 100 Mg Tablet PO 100 mg DAILYCM LOUIS Administration Vancomycin Protocol 1 lab 11/14/24 04:00 Vancomycin Trough/Random Due MC 11/14/24 08:00 DAILY [facility] Lab / Micro Data Attestation: I reviewed the patient's lab results. 11/13/24 03:10 11/13/24 08:00 Labs: Laboratory Results - last 24 hr 11/12/24 17:21: Lactic Acid 1.2 11/12/24 22:04: POC Glucose 146 H 11/12/24 22:05: Magnesium 2.9 H 11/13/24 03:10: WBC 16.6 H, RBC 3.46 L, Hgb 10.5 L, Hct 32.2 L, MCV 93.1, MCH 30.3, MCHC 32.6, RDW Std Deviation 60.3 H, RDW Coeff of Elida 17.7 H, Plt Count 247, MPV 11.3, Immature Gran % (Auto) 3.100 H, Neut % (Auto) 89.4 H, Lymph % (Auto) 3.4 L, Clayton % (Auto) 3.0, Eos % (Auto) 0.8, Baso % (Auto) 0.3, Absolute Neuts (auto) 14.8 H, Absolute Lymphs (auto) 0.56 L, Nucleated RBC % 0.5, Sodium 133 L, Potassium 6.1 H*, Chloride 104, Carbon Dioxide 11.0 L, Anion Gap 18 H, B UN 94 H, Creatinine 5.01 H, Estim Creat Clear Calc 13.33, Est GFR (MDRD) Af Amer 15 L, Est GFR (MDRD) Non-Af 12 L, BUN/Creatinine Ratio 18.8, Glucose 252 H, C alcium 7.3 L, Phosphorus 6.7 H, Magnesium 2.5, TSH 2.510 11/13/24 05:39: POC Glucose 266 H 11/13/24 06:40: POC Glucose 289 H 11/13/24 08:00: Sodium 133 L, Potassium 5.7 H, Chloride 103, Carbon Dioxide 14.0 L, Anion Gap 16 H, BUN 98 H, Creatinine 5.16 H, Estim Creat Clear Calc 13.16, E st GFR (MDRD) Af Amer 14 L, Est GFR (MDRD) Non-Af 12 L, BUN/Creatinine Ratio 19.0, Glucose 325 H, Calcium 7.3 L 11/13/24 12:06: POC Glucose 315 H Micro: Microbiology 11/12/24 11:01 Urine, Catheterized Urine Culture - Preliminary GNR 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 11/12/24 21:50 Mucosa - Nose Respiratory Panel (PCR) - Final 11/12/24 08:50 Mucosa - Nose SARS-CoV-2, Influenza & RSV (PCR) - Final ABG Data ABG results: ABG 11/12/24 17:33 Specimen Type ART Sample Site R Radial pH 7.18 L* Bicarbonate Actual 11.4 L Total CO2 12 Base Excess -17 L O2 Saturation 95 O2 % 2.0 ABG pCO2 30.8 L ABG pO2 94 Anthony Test N/A O2 Delivery Device Cannula Vent Mode Not entered Crit Call To/Read Back Yes Blood Gas Notified Whom Dr Seymour Blood Gas Notified Time 17:37:28 Imaging Radiology Impression Chest X-Ray 11/12/24 16:10 IMPRESSION: Right internal jugular catheter with tip in the superior vena cava. No acute consolidation, pleural effusion or pneumothorax. Reading Location: [facility] Assessment and Plan . Assessment and plan: Assessment: * Septic shock, refractory on multiple vasopressors * DEMI * SERG with oliguria * hypomagnesemia * hypocalcemia * UTI Plan: try adding midodrine as he is apparently taking PO continue vasopressors/ stress corticosteroids don't think continues bicarbonate is necessary CT abdomen follow up Vanc x1/ Zosyn appropriate for now If mentation not improving, may require LP, given possibility of HCAP/CAP on CXR, strep a possibility strict I/O ECHO routine Nephro consultation Critical Care Time:50 minutes The entirety of this encounter was done via Telemedicine Physical Exam Const General Appearance: anxious and ill appearing Orientation / Consciousness: lethargic Exam Limitations: behavioral limitations HEENT Head and Scalp: normal to inspection Subjective Subjective Chart reviewed, staff indicate he is scared, on near-maximum doses of vasopressors.
[2024-11-13 14:36] LABS: Anion Gap 14 (5-15); BUN 95 mg/dL (7-18); Calcium,Total 6.9 mg/dL (8.5-10.1); Chloride 102 mmol/L (98-107); EST Glomerular Filtration Rate 12 mL/min (>60); Est Glom Filt Rate - Afr Amer 15 mL/min (>60); Estimated Creatinine Clearance 13.58 ml/min; Glucose 419 mg/dL (74-106); Potassium 5.5 mmol/L (3.5-5.1); Sodium Level 132 mmol/L (136-145)
--- NOTE | 2024-11-13 14:45 | NURSING ---
education re chronic illness' deferred till acute illness resolving
[2024-11-13] MEDS: Insulin Lispro 100 UNIT/ML INSULN.PEN 8 UNIT SC (16:35)
[2024-11-13] MEDS: Norepinephrine 16 mg/250 mL 0.9% NS 18.8 MG CONT INF (16:37)
[2024-11-13 17:11] LABS: Bedside Glucose 369 mg/dL (74-106)
[2024-11-13] MEDS: Atorvastatin Calcium 20 MG Tablet PO (20:58)
[2024-11-14] VITALS (37 sets, daily range): BP systolic 72–111; BP diastolic 45–78; PULSE 59–73; RESP 14–28; TEMP 35.6–36.7; O2SAT 95–99; BMI 29.7
[2024-11-14 01:14] LABS: Bedside Glucose 399 mg/dL (74-106)
[2024-11-14] MEDS: Norepinephrine 16 mg/250 mL 0.9% NS 18.8 MG CONT INF (03:00)
[2024-11-14] MEDS: Vancomycin Trough/Random Due 1 LAB MC (03:15)
[2024-11-14 03:29] LABS: Hematocrit 29.5 % (40-54); Hemoglobin 9.8 g/dL (13.0-16.5); Mean Corp Hgb Conc 33.2 g/dL (32-36); Mean Corpuscular Hgb 29.8 pg (27.0-32.0); Mean Corpuscular Volume 89.7 fL (80-94); Mean Platelet Vol. 10.3 fl (6.2-12.0); Platelet Count 232 K/mm3 (150-450); RBC Distribution Width CV 17.2 % (11.6-14.6); RBC Distribution Width SD 56.4 fl (35.1-43.9); Red Blood Count 3.29 M/mm3 (4.6-6.2); White Blood Count 11.8 K/mm3 (4.4-11.0)
[2024-11-14 03:43] LABS: Anion Gap 12 (5-15); BUN 93 mg/dL (7-18); BUN/Creat Ratio 19.3 RATIO (10-20); Calcium,Total 6.8 mg/dL (8.5-10.1); Chloride 101 mmol/L (98-107); Creatinine, Serum 4.83 mg/dL (0.70-1.30); EST Glomerular Filtration Rate 13 mL/min (>60); Est Glom Filt Rate - Afr Amer 15 mL/min (>60); Estimated Creatinine Clearance 14.06 ml/min; Glucose 405 mg/dL (74-106); Potassium 4.6 mmol/L (3.5-5.1); Sodium Level 134 mmol/L (136-145)
[2024-11-14 03:44] LABS: Vancomycin, Random Level 15.3 ug/mL (0.0-15.0)
[2024-11-14] MEDS: Sodium Bicarbonate 150 MEQ in Dextrose 5%-Water (1000mL Bag) 1,000 ML 100 MEQ IV (05:19)
[2024-11-14] MEDS: Hydrocortisone Sod Succinate 100 MG/2 ML Vial 50 MG IV (05:19)
--- NOTE | 2024-11-14 06:25 | PHA.PHARE_ITS ---
Consult Antibiotic Management Pharmacy has been consulted to manage selected antibiotic: Vancomycin Type of Intervention Type of Consult: Follow-up Labs Labs: Sodium 134 mmol/L (136-145) L 11/14/24 03:20 Potassium 4.6 mmol/L (3.5-5.1) 11/14/24 03:20 Chloride 101 mmol/L (98-107) 11/14/24 03:20 Carbon Dioxide 21.0 mmol/L (21.0-32.0) 11/14/24 03:20 Anion Gap 12 (5-15) 11/14/24 03:20 BUN 93 mg/dL (7-18) H 11/14/24 03:20 Creatinine 4.83 mg/dL (0.70-1.30) H 11/14/24 03:20 Est GFR (MDRD) Af Amer 15 mL/min (>60) L 11/14/24 03:20 Est GFR (MDRD) Non-Af 13 mL/min (>60) L 11/14/24 03:20 BUN/Creatinine Ratio 19.3 RATIO (10-20) 11/14/24 03:20 Glucose 405 mg/dL (74-106) H 11/14/24 03:20 Random Vancomycin 15.3 ug/mL (0.0-15.0) H 11/14/24 03:20 Microbiology Microbiology: Microbiology 11/12/24 11:01 Urine, Catheterized Urine Culture - Preliminary GNR lactose 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 RANDOM LEVEL 15.3 @ 18 HOURS. GIVE 1250MG NOW AND DRAW RANDOM LEVEL TOMORROW @ 0600 Follow-Up Labs Follow-Up Labs: Trough: Vancomycin Date/Time Labs Ordered Labs to be done on [date and time ordered]: 11/15 @ 0600
[2024-11-14] MEDS: Vancomycin HCl 1,250 MG in 0.9% Normal Saline (250mL Bag) 250 ML 167 MG IV (06:36)
[2024-11-14] MEDS: Insulin Lispro 100 UNIT/ML INSULN.PEN SC ×2 (06:40→12:38)
[2024-11-14] MEDS: Insulin Lispro 100 UNIT/ML INSULN.PEN 8 UNIT SC (06:41)
[2024-11-14 07:01] LABS: Bedside Glucose 337 mg/dL (74-106)
[2024-11-14] MEDS: Insulin Lispro 100 UNIT/ML INSULN.PEN 12 UNIT SC (08:53)
[2024-11-14] MEDS: Thiamine Hydrochloride 100 MG Tablet PO (10:08)
[2024-11-14] MEDS: Midodrine HCl 5 MG Tablet 10 MG PO ×2 (10:08→12:37)
[2024-11-14] MEDS: Aspirin 81 MG TAB.CHEW PO (10:08)
[2024-11-14] MEDS: Heparin Injection (Vial) 5,000 UNIT/ML VIAL 5000 UNIT SC (10:09)
[2024-11-14] MEDS: Folic Acid 1 MG Tablet PO (10:09)
[2024-11-14] MEDS: Pantoprazole Sodium 40 MG Tablet PO (10:10)
[2024-11-14] MEDS: Piperacil/Tazobactam 3.375 GM in 0.9% Normal Saline (50mL MB+) 50 ML IV (10:20)
[2024-11-14] MEDS: 0.9% Saline Lock 10 ML Syringe IV ×2 (10:29→16:12)
--- NOTE | 2024-11-14 10:36 | PCM.PN.HOSP ---
Reason for Visit Reason for Visit: Diagnoses Sepsis, unspecified organism (11/12/24) Hypocalcemia (11/12/24) Dehydration (11/12/24) Hypotension, unspecified (11/12/24) Acute kidney failure, unspecified (11/12/24) Urinary tract infection, site not specified (11/12/24) Adult failure to thrive (11/12/24) Severe sepsis with septic shock (11/12/24) Other specified abnormal findings of blood chemistry (11/12/24) Subjective Subjective Saw patient at bedside this morning. Patient's brother Steve was on the phone for our encounter as well. Patient appeared improved today, was alert and oriented x 3 and energy level was improved. He denied any acute pain or discomfort this morning. Denied any fevers or chills. Was able to eat his breakfast and had fairly good appetite this morning. No other acute concerns this morning. Objective Data Objective Data Vital Signs: Vital Signs Temp Pulse Resp BP Pulse Ox O2 Del Method O2 Flow Rate 96.1 F L 64 16 91/66 99 Room Air 2 11/14/24 04:00 11/14/24 10:10 11/14/24 07:00 11/14/24 10:10 11/14/24 07:00 11/14/24 08:00 11/13/24 10:00 Oxygen Flow Rate (L/min) 2 Oxygen Delivery Method Room Air Weight: 91.3 kg Body Mass Index (BMI) 29.7 Intake & Output: Intake and Output for Last 24 Hours 11/12/24 11/13/24 11/14/24 23:59 23:59 23:59 Intake Total 5121.38 / 5140.13 5411.50 / 5439.60 1339.92 / 1339.92 Output Total 800 / 800 450 / 450 Balance 5121.38 / 5140.13 4611.50 / 4639.60 889.92 / 889.92 Lab / Micro Data 11/14/24 03:20 11/14/24 03:20 Labs: Laboratory Results - last 24 hr 11/13/24 12:06: POC Glucose 315 H 11/13/24 14:10: Sodium 132 L, Potassium 5.5 H, Chloride 102, Carbon Dioxide 16.0 L, Anion Gap 14, BUN 95 H, Creatinine 5.00 H, Estim Creat Clear Calc 13.58, Est GFR (MDRD) Af Amer 15 L, Est GFR (MDRD) Non-Af 12 L, BUN/Creatinine Ratio 19.0, Glucose 419 H, Calcium 6.9 L 11/13/24 16:33: POC Glucose 369 H 11/13/24 21:03: POC Glucose 399 H 11/14/24 03:20: WBC 11.8 H, RBC 3.29 L, Hgb 9.8 L, Hct 29.5 L, MCV 89.7, MCH 29.8, MCHC 33.2, RDW Std Deviation 56.4 H, RDW Coeff of Elida 17.2 H, Plt Count 232, MPV 10.3, Sodium 134 L, Potassium 4.6, Chloride 101, Carbon Dioxide 21.0, Anion Gap 12, BUN 93 H, Creatinine 4.83 H, Estim Creat Clear Calc 14.06, Est GFR (MDRD) Af Amer 15 L, Est GFR (MDRD) Non-Af 13 L, BUN/Creatinine Ratio 19.3, Glucose 405 H, Calcium 6.8 L, Random Vancomycin 15.3 H 11/14/24 06:39: POC Glucose 337 H Micro: Microbiology 11/12/24 08:58 Blood Culture (Wb) - Left Wrist Blood Culture - Preliminary No growth in 48 hours. 11/12/24 09:10 Blood Culture (Wb) - Right Forearm Blood Culture - Preliminary No growth in 48 hours. 11/12/24 11:01 Urine, Catheterized Urine Culture - Final Klebsiella pneumoniae sp pneum 11/12/24 21:50 Mucosa - Nose Respiratory Panel (PCR) - Final 11/12/24 08:50 Mucosa - Nose SARS-CoV-2, Influenza & RSV (PCR) - Final Physical Exam Const alert, oriented x3, no apparent distress and average body habitus Constitutional Narrative: Elderly male, somewhat chronically ill-appearing, mildly fatigued but energy much improved from admission, alert and oriented x 3, sitting up comfortably in bed, in no acute distress. General Appearance: cooperative and comfortable HEENT normocephalic, head/scalp atraumatic, hearing grossly normal bilaterally and nasal mucous membranes and turbinates normal Eyes PERRL, EOMs intact bilaterally and conjunctivae normal Neck full ROM Chest inspection of chest normal Resp normal respiratory effort, normal air movement, no use of accessory muscles and clear to auscultation bilaterally Cardio regular rate, regular rhythm, no murmurs and peripheral pulses 2+ throughout GI normal to inspection, nondistended, normoactive bowel sounds, soft to palpation, non-tender and non-distended Back/Spine normal ROM Extremity normal to inspection and no pedal edema Skin no rashes or lesions noted Neuro moves all extremities and no focal motor deficits Speech: speech normal Psych affect normal Assessment & Plan Assessment/Plan (1) Septic shock: (2) Acute UTI: (3) Acute renal failure: (4) Adult failure to thrive: PLAN: Plan Patient is a 79-year-old male who presented [facility] ED on 11/12/2024 with worsening weakness. 1. Septic shock suspected secondary to UTI ? Aerospace Engineer Officer Armament following. Met sepsis criteria on admit with hypotension, encephalopathy, severe SERG and suspected urinary source. UA showed positive nitrites, 500 leukocyte esterase, 2+ bacteria. Urine culture prelim positive for gram-negative rods. Notably was hospitalized in September for sepsis secondary to UTI and urine culture grew Klebsiella. Continue treatment with IV Zosyn for now. Patient was not fluid responsive on admit and was requiring high dose Levophed along with vasopressin and stress dose steroids. Significant improvement on 11/14, down to Levophed 10 and vasopressin and stress dose steroids discontinued. Appreciate refrigeration houseman recommendations. 2. Severe SERG with anion gap metabolic acidosis ? Nephrology following. Baseline creatinine 1.2-1.4, creatinine 4.35 on admit and worsened to 5.16 on hospital day 2. Urine output oliguric. Presumed prerenal SERG with likely ATN secondary to septic shock as noted above. Severe metabolic acidosis with bicarb anatoliy of 11. Kidney function has stabilized and bicarbonate is much improved after patient was on bicarbonate drip. BMP on 11/14 with creatinine 4.83, bicarb 21. On discussion with patient and family, they note that they do not want to pursue hemodialysis at this time despite knowing that ultimately patient may from kidney failure. Will continue to monitor daily BMP and urine output. 3. Acute metabolic encephalopathy, resolved ? Aerospace Engineer Officer Armament following as above. Presume secondary to septic shock. Much improved on 11/14, alert and oriented x 3. 4. Hyperkalemia, improved ? Potassium 6.1 on morning of 11/13, secondary to SERG. Treated medically with good improvement, most recent potassium 4.6 on 11/14. Monitoring BMP daily as noted above. 5. Type 2 diabetes mellitus with hyperglycemia ? Holding home oral diabetic agents. Hyperglycemia worsening presume secondary to stress dose steroids for septic shock. Treating with 12 units of Humalog and sliding scale insulin with meals, adjust as needed. Notably, stress to steroids discontinued on 11/14; will decrease Humalog dosing as needed. 6. Hypocalcemia ? Presume secondary to severe SERG. Calcium anatoliy of 6.2 on 11/12, improved with IV repletion. Continue to monitor daily. 7. Concern for alcohol abuse ? Patient is a poor historian but home health care noted that he had multiple alcohol bottles in his house recently. Will continue CIWA protocol here, no signs of alcohol withdrawal to this point. 8. Acute on chronic debility with adult failure to thrive ? PT/OT/case management following. Patient critically ill, continue treatment as above. 9. Concern for A-fib ? Had concern for A-fib on admission given findings on the monitor. Plan was to start p.o. Lopressor on admit but this was held due to blood pressure. Had improvement in rate and has been stable in normal sinus rhythm since 11/13. No need for Lopressor or anticoagulation at this time. Continue cardiac monitoring. 10. Chronic anemia ? Hemoglobin stable at baseline around 10 since admission. Chronic medical conditions: ? History of gout: Holding home allopurinol given severe SERG. ? Hypertension: Holding home meds in setting of septic shock. ? GERD: Continue home PPI. ? History of open heart surgery DVT prophylaxis: Heparin subcu CODE STATUS: DNR CCA, DNI Expected disposition: TBD Total clinical time spent by myself addressing the patient's medical issues, reviewing all the data, and collaborating with patient's care team: 35 minutes. Charges/Coding Visit Charges Inpatient E&M: 86443 Subs Hosp L2
[2024-11-14 12:14] LABS: Bedside Glucose 206 mg/dL (74-106)
[2024-11-14] MEDS: Albuterol 2.5 MG/3 ML VIAL.NEB. INHALATION (12:52)
--- NOTE | 2024-11-14 12:57 | PN.CC_ITS ---
Objective Data Objective Data Vital Signs: Vital Signs Last response 3 Temperature 35.6 C L 11/14/24 04:00 Temperature Source Core 11/14/24 04:00 Pulse Rate 59 L 11/14/24 12:54 Respiratory Rate 16 11/14/24 12:54 Respiratory Effort Normal 11/14/24 08:00 Respiratory Depth Shallow 11/14/24 08:00 Respiratory Pattern Normal 11/14/24 12:54 Blood Pressure 91/66 11/14/24 10:10 Blood Pressure Mean 83 11/14/24 07:00 Blood Pressure Source Monitor 11/14/24 07:00 Blood Pressure Position Semi-Fowlers 11/14/24 07:00 Blood Pressure Location Right Arm 11/14/24 07:00 Pulse Ox 99 11/14/24 11:47 Oxygen Delivery Method Room Air 11/14/24 11:47 Oxygen Flow Rate (L/min) 2 11/13/24 10:00 I&O: I&O Last 24 Hours 3 11/13/24 11/14/24 11/14/24 23:59 11:59 23:59 Intake Total 2758.68 / 5439.60 1708. / 1982. 275 / 1982. Output Total 250 / 800 450 / 450 Balance 2508.68 / 4639.60 1258.25 / 1533.25 275 / 1533.25 I&O: Total Stay 3 11/12/24 08:21 thru 11/14/24 12:39 Intake Total 45246.13 Output Total 1250 Balance 93768.13 Current Meds Ordered / Administered: Current meds ordered / Administered 3 Generic Name Dose Route Start Last Admin Trade Name [place] PRN Reason Stop Dose Admin Acetaminophen 650 mg 11/12/24 18:50 Acetaminophen 325 Mg Tablet PO Q6H PRN PRN Pain 1-10 Or Fever >100.7 Albuterol Sulfate 2.5 mg 11/12/24 18:50 11/14/24 12:52 Albuterol 2.5 Mg/3 Ml Vial.Neb. INHALATION 2.5 mg Q2H PRN PRN Administration SOB &/OR WHEEZING Aspirin 81 mg 11/13/24 08:00 11/14/24 10:08 Aspirin 81 Mg Tab.Chew PO 81 mg BREAKFAST [place] Administration Atorvastatin Calcium 20 mg 11/12/24 22:00 11/13/24 20:58 Atorvastatin Calcium 20 Mg Tablet PO 20 mg QHS [place] Administration Folic Acid 1 mg 11/13/24 08:00 11/14/24 10:09 Folic Acid 1 Mg Tablet PO 1 mg DAILY@0800 [place] Administration Glucagon 1 mg 11/12/24 18:50 Glucagon 1 Mg/Ml Syringe IM X1 PRN HYPOGLYCEMIA Protocol Heparin Sodium (Porcine) 5,000 unit 11/12/24 22:00 11/14/24 10:09 Heparin Injection (Vial) 5,000 Unit/Ml Vial SC 5,000 unit Q12 [place] Administration Dextrose 250 mls @ 0 mls/hr 11/12/24 18:50 Dextrose 10%-Water IV .Q0M PRN HYPOGLYCEMIA Protocol As Directed Piperacillin Sod/Tazobactam 50 mls @ 12.5 mls/hr 11/13/24 10:00 11/14/24 10:20 Sod 3.375 gm/ Sodium Chloride IV 12.5 mls/hr Q12 [place] Administration Vasopressin 20 units/ Sodium 25 mls @ 3 mls/hr 11/12/24 18:50 11/14/24 12:40 Chloride CONT INF Not Given .Q8H20M [place]IS 0.04 UNITS/MIN Sodium Chloride 100 mls @ 15 mls/hr 11/12/24 21:38 IV .Q6H40M PRN Saline Flush Sodium Chloride 100 mls @ 15 mls/hr 11/12/24 21:38 IV .Q6H40M PRN Additional IVPB Infusion Norepinephrine Bitartrate 16 250 mls @ 4.688 mls/hr 11/13/24 00:45 11/14/24 07:00 mg/ Sodium Chloride CONT INF 10 mcg/min .[id number] L[place]IS 9.4 mls/hr Titration Protocol 5 MCG/MIN Insulin Human Lispro 0 unit 11/12/24 18:50 11/14/24 12:38 Insulin Lispro 100 Unit/Ml Insuln.Pen SC 4 u ACHS [place]IS Administration Protocol Lorazepam 0.5 mg 11/12/24 18:50 Lorazepam 0.5 Mg Tablet PO Q2H PRN PRN CIWA score >/=12 Protocol Melatonin 3 mg 11/12/24 18:50 Melatonin 3 Mg Tablet PO QHS PRN PRN INSOMNIA Midodrine 10 mg 11/12/24 18:50 11/14/24 12:37 Midodrine Hcl 5 Mg Tablet PO 10 mg TIDCM [place] Administration Ondansetron HCl 4 mg 11/12/24 18:50 Ondansetron 4 Mg/2 Ml Vial IV Q8H PRN PRN NAUSEA/VOMITING Pantoprazole Sodium 40 mg 11/13/24 10:00 11/14/24 10:10 Pantoprazole Sodium 40 Mg Tablet PO 40 mg DAILY [place] Administration Senna/Docusate Sodium 2 tablet 11/12/24 18:50 Senna/Docusate Sodium 1 Tablet PO BID PRN PRN Constipation Sodium Chloride 10 - 40 ml 11/12/24 21:38 11/14/24 10:29 0.9% Saline Lock 10 Ml Syringe IV 20 ml UD PRN Administration SALINE FLUSH Thiamine HCl 100 mg 11/13/24 08:00 11/14/24 10:08 Thiamine Hydrochloride 100 Mg Tablet PO 100 mg DAILYCM [place] Administration Lab / Micro Data Attestation: I reviewed the patient's lab results. 11/14/24 03:20 11/14/24 03:20 Labs: Laboratory Results - last 24 hr 11/13/24 14:10: Sodium 132 L, Potassium 5.5 H, Chloride 102, Carbon Dioxide 16.0 L, Anion Gap 14, BUN 95 H, Creatinine 5.00 H, Estim Creat Clear Calc 13.58, Est GFR (MDRD) Af Amer 15 L, Est GFR (MDRD) Non-Af 12 L, BUN/Creatinine Ratio 19.0, Glucose 419 H, Calcium 6.9 L 11/13/24 16:33: POC Glucose 369 H 11/13/24 21:03: POC Glucose 399 H 11/14/24 03:20: WBC 11.8 H, RBC 3.29 L, Hgb 9.8 L, Hct 29.5 L, MCV 89.7, MCH 29.8, MCHC 33.2, RDW Std Deviation 56.4 H, RDW Coeff of Elida 17.2 H, Plt Count 232, MPV 10.3, Sodium 134 L, Potassium 4.6, Chloride 101, Carbon Dioxide 21.0, Anion Gap 12, BUN 93 H, Creatinine 4.83 H, Estim Creat Clear Calc 14.06, Est GFR (MDRD) Af Amer 15 L, Est GFR (MDRD) Non-Af 13 L, BUN/Creatinine Ratio 19.3, G lucose 405 H, Calcium 6.8 L, Random Vancomycin 15.3 H 11/14/24 06:39: POC Glucose 337 H 11/14/24 11:57: POC Glucose 206 H Micro: Microbiology 11/12/24 08:58 Blood Culture (Wb) - Left Wrist Blood Culture - Preliminary No growth in 48 hours. 11/12/24 09:10 Blood Culture (Wb) - Right Forearm Blood Culture - Preliminary No growth in 48 hours. 11/12/24 11:01 Urine, Catheterized Urine Culture - Final Klebsiella pneumoniae sp pneum Assessment and Plan . Assessment and plan: Assessment: * Septic shock, refractory on multiple vasopressors, resolving rapidly * DEMI, resolving * SERG with oliguria- this has persisted with creatinine only nominally improved at 4.8 today * hypomagnesemia * hypocalcemia * UTI Plan: continue midodrine weaning vasopressors/ stress corticosteroids DC IV bicarbonate Vanc x1/ Zosyn appropriate for now strict I/O ECHO routine Nephro consultation Critical Care Time: 50 minutes The entirety of this encounter was done via Telemedicine Physical Exam Const alert and oriented x3 Subjective Subjective Looks MUCH better; alert and interactive now, hemodynamics improved- nearly weaned off max dose vasopressors yesterday (!)
--- NOTE | 2024-11-14 14:59 | NURSING ---
Spoke w/ pt's POA and brother Steve Sanders. After hearing the update, he requests pt code status be changed to DNRCC with withdrawal of all treatment but medication for comfort. Verified per Juan Watson RN. Dr. Monroy notified.
--- NOTE | 2024-11-14 16:17 | PCM.HOSP.N ---
Hospitalist Note Had extensive discussion with patient's brother Steve over the phone this afternoon. Despite patient having some degree of improvement today, he remains critically ill with very poor kidney function. Steve also notes that patient has poor functional status at baseline and it is highly unlikely that he would be able to go home safely at any point in the future. Patient is alert and oriented to person and place and knows he is in the hospital, but he has very minimal understanding of his current medical condition. For this reason, patient lacks capacity at this time. Given that, it is reasonable for Steve to assist with deciding on patient's goals of care moving forward. Steve would like to move forward with initiating comfort care measures for the patient. I explained to him that patient is off of pressor medications so this would entail taking him off antibiotics and other medications here and initiating medications for comfort. Will also consult hospice care, who will likely discuss further with Steve over the phone and see the patient tomorrow. Steve was agreeable with this plan. CODE STATUS changed to DNR CC and orders placed.
[2024-11-15 02:00] VITALS: O2SAT 94
[2024-11-15 04:57] VITALS: BP 124/71; PULSE 73; RESP 20; TEMP 36.6; O2SAT 92
[2024-11-15 05:04] VITALS: PULSE 87; RESP 18; O2SAT 98
[2024-11-15] MEDS: Albuterol 2.5 MG/3 ML VIAL.NEB. INHALATION (05:04)
--- NOTE | 2024-11-15 09:50 | CASEMGMT ---
[place] noted there was an order placed for Hospice. Referral was sent yesterday. [place] called [facility] and they have not contacted patient's brother yet, but it is on the schedule to do so. Hospice will call SW when a time has been arranged. [place] updated BOTTOM SANDER to notify patient's RN. Erin ARCOS
[2024-11-15 10:15] VITALS: BP 79/54; PULSE 80; RESP 18; TEMP 37; O2SAT 100
[2024-11-15] MEDS: Pantoprazole Sodium 40 MG Tablet PO (10:17)
--- NOTE | 2024-11-15 11:19 | PCM.CONS.R ---
Assessment & Plan Assessment/Plan (1) Acute renal failure: (2) Acute UTI: PLAN: Plan This is a 79-year-old male with past medical history significant for diabetes mellitus type 2, gout, GERD, hypertension admitted to ICU for septic shock, UTI, possible pneumonia, SERG, metabolic acidosis. Patient was initially started on IV pressors and IV fluids. Patient was also started on bicarb drip. Nephrology consulted in view of elevated creatinine. Baseline creatinine has been ranging around 1.2-1.4 as of September 2024. Creatinine was 4.35 on admission, peaked to 5.16, lab work from yesterday creatinine 4.83. Potassium was normal at admission, peaked to 6.1 and lab work yesterday K+ 4.6, bicarb also improved and normalized as of yesterday. No labs today yet. Over the weekend there was discussion with patient's brother regarding goals of care and family to be meeting with hospice possibly today. We will order labs for today to see where kidney function is at; patient did have ~1.1 L urine output for yesterday. He has been taken off of IV pressors, bps do remain low. Home medications include metformin, lisinopril and furosemide recommend continue holding for now. Discussed with Dr. Zambrano, for now no acute indication for WILDLIFE BIOSTATION RESEARCH ECOLOGIST and waiting for family to meet with hospice regarding goals of care. Likely SERG secondary to ischemic ATN from sepsis, hypotension and poor renal perfusion. Will follow the patient along with you. Further orders forthcoming as hospitalzation evolves. HPI Consult Data Date of Consult: 11/15/24 HPI Narrative HPI Narrative: NATALIA BURDICK, is a 79 M with past medical history significant for diabetes mellitus type 2, gout, GERD, hypertension who presented to the emergency room on November 12 with complaints of generalized weakness and poor appetite. Patient was noted to be hypotensive in the emergency room (systolic bp dropped in the 60s), oxygen saturation 100% on room air, creatinine 4.25, BNP 354, bicarb 11, possible UTI, CXR no acute cardiopulmonary process, patient was given IV fluids and antibiotics in the ER and admitted to ICU for further evaluation and treatment of sepsis secondary to UTI, possible pneumonia, severe SERG and metabolic acidosis. Nephrology consulted in view of elevated creatinine. Patient is alert to name but unable to give past information. Information gathered from chart. Baseline creatinine seems to be around 1.2-1.4mg/dL. Over the weekend code status has been changed to DNR CC. 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, right shoulder Right shoulder pain Home Medications ?Medication ?Instructions ?Recorded ?Last Taken ?Type aspirin 81 mg chewable tablet 81 mg PO DAILY HEART 10/27/13 11/11/24 History fish oil-dha-epa 1,200 mg-144 1,200 ea PO BID supplement 10/27/13 11/23/19 History mg-216 mg capsule metformin 850 mg tablet 850 mg PO BIDCM DIABETES 10/27/13 09/17/24 History simvastatin 20 mg tablet 40 mg PO QHS CHOLESTEROL 10/27/13 11/11/24 History fluticasone furoate 100 1 puff IH DAILY PRN nasel 11/23/19 11/23/19 History mcg-vilanterol 25 mcg/dose congeestion inhalation powder lisinopril 2.5 mg tablet 2.5 mg PO DAILY BP 11/23/19 11/11/24 History allopurinol 300 mg tablet 300 mg PO DAILY gout 10/23/23 11/12/24 History atenolol 50 mg tablet 25 mg PO Q24H BP 10/23/23 11/11/24 History furosemide 20 mg tablet 20 mg PO DAILY edema 10/23/23 Unknown History mupirocin 2 % topical ointment 1 applic topical DAILY PRN 10/23/23 Unknown History laceraction omeprazole 40 mg capsule,delayed 40 mg PO DAILY ACID REFLUX 10/23/23 09/17/24 History release metformin 1,000 mg tablet 500 mg PO DAILY diabetes 09/17/24 11/11/24 History midodrine 5 mg tablet 10 mg (2 x 5 mg) PO TIDCM 30 days 09/23/24 Unknown Rx #180 tabs tamsulosin 0.4 mg capsule 0.4 mg PO DAILY@1730 #30 caps 09/23/24 Unknown Rx Allergy/AdvReac Type Severity Reaction Status Date / Time No Known Allergies Allergy Verified 11/12/24 08:22 Surgical History History of heart bypass surgery Social History household members: none Smoking Status: Former smoker alcohol intake: former ROS ROS Narrative limited, as in HPI Physical Exam Narrative Alert to name only, confused to recent event S1, S2, rhythm irregular, rate controlled Diminished breath sounds, no rales or rhonchi. On O2 nasal cannula Abdomen soft, nontender + edema b/l LE Lab / Micro Data 11/14/24 03:20 11/14/24 03:20 Labs: Laboratory Results - last 24 hr 11/14/24 11:57: POC Glucose 206 H Micro: Microbiology 11/12/24 08:58 Blood Culture (Wb) - Left Wrist Blood Culture - Preliminary No growth in 48 hours. 11/12/24 09:10 Blood Culture (Wb) - Right Forearm Blood Culture - Preliminary No growth in 48 hours. 11/12/24 11:01 Urine, Catheterized Urine Culture - Final Klebsiella pneumoniae sp pneum
--- NOTE | 2024-11-15 12:22 | CASEMGMT ---
Hospice has not called SW regarding a meeting time. SW checked with patient's RN and they will be meeting between 130 and 2 today. Erin ARCOS
[2024-11-15 13:17] LABS: Anion Gap 8 (5-15); BUN 88 mg/dL (7-18); BUN/Creat Ratio 20.6 RATIO (10-20); Calcium,Total 7.2 mg/dL (8.5-10.1); Chloride 103 mmol/L (98-107); Creatinine, Serum 4.28 mg/dL (0.70-1.30); EST Glomerular Filtration Rate 14 mL/min (>60); Est Glom Filt Rate - Afr Amer 17 mL/min (>60); Estimated Creatinine Clearance 15.88 ml/min; Glucose 206 mg/dL (74-106); Potassium 4.3 mmol/L (3.5-5.1); Sodium Level 136 mmol/L (136-145)
--- NOTE | 2024-11-15 14:12 | CASEMGMT ---
Hospice is at [facility]. All are in agreement with hospice at the inpatient hospice unit. solar energy systems engineer is working on getting patient into the inpatient hospice unit. Erin ARCOS
--- NOTE | 2024-11-15 14:47 | CHAPLAIN ---
Type of Pastoral Visit _x__ Initial Visit ___ Follow-up Visit ___ On-call Visit ___ General Patient Visit ___ Spiritual Assessment ___ Family Conference ___ Bereavement ___ Rapid Response ___ Code Blue ___ Other (describe below) Pastoral Care Referral From _x__ Patient ___ Family ___ Nurse ___ Physician ___ Case Repairer ___ Color Corrector ___ Other (describe below) Sacrament/Intervention _x__ Active listening ___ Anointing ___ Presybeterian ___ Bereavement ___ Communion _x__ Izabela exploration ___ ___ Life review ___ Prayer ___ Reconciliation ___ Sacrament of Sick _x__ Supportive presence ___ Wedding ___ Other (describe below) Pastoral Comments patient is alert and able to express his situation and his desire for what lies ahead; pt states several times that he is close to the end of life and that he just hopes to during his sleep; pt says a brother handles his affairs and he trusts his brother to make the decisions; pt also has a son that lives close by; pt is asked about his feelings and how he is approaching his own mortality; pt states that he just accepts it as a part of life although he would like another ten years first; pt is asked about any spiritual needs or concerns; pt responds that he is not synagogue and that he thinks Bandar was a great teacher who should be followed but he has no belief in an afterlife nor does he accept what Christians believe; pt denies any concerns whatsoever and yet welcomes a friendly visit in the future
--- NOTE | 2024-11-15 16:00 | CASEMGMT ---
Patient is being discharged to the inpatient hospice unit. Erin ARCOS
--- NOTE | 2024-11-15 16:01 | CASEMGMT ---
SW checked in with the WAFER CLEANER on ICU. They are waiting on hospice to call with a fern picker time. Erin Carter CONSTRUCTION COORDINATOR FLOW NURSE
--- NOTE | 2024-11-15 17:09 | NURSING ---
Report called to Chelsea the receiving nurse at Hospice.
--- NOTE | 2024-11-15 18:22 | DS.PCM_ITS ---
Providers Date of Admission: 11/12/24 Date of Discharge: 11/15/24 Primary Care Physician: Dr. Stuart Peña MD Consultations 11/12/24 18:50 Consult: [employer] / Pulmonary Medicine Routine Consulting Provider: Intensivists/Pulmonary Med Reason for Consult: shock EMERGENT Consult: No Notified: Yes Date Notified: 11/12/24 Time Notified: 17:02 Method of Notification: tele PCC Consult: Nephrology Routine Consulting Provider: Moses Ruiz Reason for Consult: new renal failure EMERGENT Consult: No Notified: Yes Date Notified: 11/12/24 Time Notified: 08:27 Method of Notification: Answering Service 11/14/24 16:23 Consult: Hospice / Palliative Care Routine Consulting Provider: [facility] Reason for Consult: acute kidney failure w/ septic shock EMERGENT Consult: No Notified: Yes Date Notified: 11/14/24 Time Notified: 16:23 Method of Notification: Verbal Method of Consult:: In-Person Reason For Visit: HYPOTENSION, UTI Diagnosis Discharge Diagnosis (1) Acute renal failure: Status: Acute Code(s): N17.9 - Acute kidney failure, unspecified (2) Acute UTI: Status: Acute Code(s): N39.0 - Urinary tract infection, site not specified Plan 1. Septic shock secondary to UTI #2 acute kidney injury #3 acute metabolic encephalopathy #4 hyperkalemia #5 type 2 diabetes Medications at Discharge Home Medications aspirin 81 mg chewable tablet 81 mg PO DAILY HEART 10/27/13 fish oil-dha-epa 1,200 mg-144 mg-216 mg capsule 1,200 ea PO BID supplement 10/27/13 metformin 850 mg tablet 850 mg PO BIDCM DIABETES 10/27/13 simvastatin 20 mg tablet 40 mg PO QHS CHOLESTEROL 10/27/13 fluticasone furoate 100 mcg-vilanterol 25 mcg/dose inhalation powder 1 puff IH DAILY PRN nasel congeestion 11/23/19 lisinopril 2.5 mg tablet 2.5 mg PO DAILY BP 11/23/19 allopurinol 300 mg tablet 300 mg PO DAILY gout 10/23/23 atenolol 50 mg tablet 25 mg PO Q24H BP 10/23/23 furosemide 20 mg tablet 20 mg PO DAILY edema 10/23/23 mupirocin 2 % topical ointment 1 applic topical DAILY PRN laceraction 10/23/23 omeprazole 40 mg capsule,delayed release 40 mg PO DAILY ACID REFLUX 10/23/23 metformin 1,000 mg tablet 500 mg PO DAILY diabetes 09/17/24 midodrine 5 mg tablet 10 mg (2 x 5 mg) PO TIDCM 30 days #180 tabs 09/23/24 tamsulosin 0.4 mg capsule 0.4 mg PO DAILY@1730 #30 caps 09/23/24 Hospital Course Operations None Procedures None Summary of Care Provided Minutes Spent on Discharge: 30 Hospital Course: This 79-year-old white male was seen in the emergency room at [facility] due to confusion. Patient had recently been hospitalized and sent to an extended care facility after the hospitalization-he had been hospitalized due to septic shock from urinary source. Patient states that his last meal was 4 days ago, he states he has been so weak he has not been able to get up and move around his home. According to to home health, it was stated that there were numerous alcohol bottles around the house. Labs obtained showed a normal white blood cell count, hemoglobin was 9.9, creatinine was elevated at 4.35 and BUN was 76. Beta natruretic peptide was elevated at 354 and troponin was 136. Urinalysis showed 10-25 RBCs, 25-50 WBCs and +2 bacteria. Patient was admitted for acute kidney injury, acute UTI, hypotension, dehydration, and failure to thrive. He was given IV antibiotics and fluids. Patient remained weak and frail, conversations were carried out with the patient's brother who decided to make the patient comfort care and have hospice see the patient. Hospice saw the patient on 11/15/2024 and agreed to transfer the patient to inpatient hospice facility. On 11/15/2024, patient was seen and examined: On examination he appeared frail with a decreased level of consciousness. Vital signs as documented. Skin warm and dry and without overt rashes. Neck without JVD, neck was supple, trachea midline, thyroid was normal. Lungs clear bilaterally, normal air movement was noted. Heart exam notable for regular rhythm, normal sounds and absence of murmurs, rubs or gallops. Abdomen unremarkable and without evidence of organomegaly, masses, or abdominal aortic enlargement. Bowel sounds are present, abdomen is not distended. Extremities nonedematous, no cyanosis was noted, no clubbing was noted. Neuro: Cranial nerves II through XII are grossly intact, no focal motor deficits were noted, sensation to light touch and pinprick intact, motor exam 5/5 throughout. Psych: Patient is alert but shows signs of confusion Patient was transferred to the hospice inpatient facility in stable condition on 11/15/2024 Weight / BMI Weight Weight: 91.3 kg Body Mass Index (BMI) 29.7 ABG / Lab / Microbiology Data 11/14/24 03:20 11/15/24 12:45 Laboratory: Laboratory Results - last 24 hr 11/15/24 12:45: Sodium 136, Potassium 4.3, Chloride 103, Carbon Dioxide 25.0, Anion Gap 8, BUN 88 H, Creatinine 4.28 H, Estim Creat Clear Calc 15.88, Est GFR (MDRD) Af Amer 17 L, Est GFR (MDRD) Non-Af 14 L, BUN/Creatinine Ratio 20.6 H, G lucose 206 H, Calcium 7.2 L Microbiology: Microbiology 11/12/24 08:58 Blood Culture (Wb) - Left Wrist Blood Culture - Final No growth in 5 days. 11/12/24 09:10 Blood Culture (Wb) - Right Forearm Blood Culture - Final No growth in 5 days. 11/12/24 11:01 Urine, Catheterized Urine Culture - Final Klebsiella pneumoniae sp pneum 11/12/24 21:50 Mucosa - Nose Respiratory Panel (PCR) - Final 11/12/24 08:50 Mucosa - Nose SARS-CoV-2, Influenza & RSV (PCR) - Final D/C Instructions DC O2, CPAP, BIPAP Needs Home O2 Discharge instructions: No Meaningful Use Info Meaningful Use Meaningful Use Diagnoses (Choose all that apply): None applicable Ischemic Stroke Statin Dosing Therapy Reference: STATIN DOSE THERAPY REFERENCE: * Patients > 75 years receive moderate or high dose statin therapy. * Patients 75 years or YOUNGER should receive HIGH intensity statin dose unless contraindicated. You will be required to document reason for non-treatment if statin daily dose does not meet guidelines. HIGH DOSE STATIN THERAPY DAILY Atorvastatin > than or = to 40 mg Rosuvastatin > than or = to 20 mg Amlodipine + Atorvastatin > than or = to 2.5/40 mg Ezetimibe + Simvastatin 10/80 mg Simvastatin 80mg Discharge Plan Admission Admit Date/Time: 11/12/24 13:33 Attending Provider: Jose Zambrano Primary Care Provider: Stuart Peña Consulting Providers: Madan Hutton; Anthony Posey; Yoseph Ortez; Vishnu Dejesus; Laureano Sotelo; Behzad Hunter; Bola Feliciano; Suze Phan; Daniel Del Rio; Zak Jones; Bill Dodge; Tatum Ren; Sonali Sprague; Val Gray; Kt Elizabeth; Konrad Ibrahim; Dov Garcia; Zain,Ge; Cheryl Fernando; Char Nichols; Nick Amin; Albino Mccollum; Jose Mari; Candie Seymour; Moses Ruiz; Laureano Lazar; Kiera Laboy; Mela Peters; Opal Jones; Beatris Sylvester NP; Cinthya Izaguirre; Kojo Monroy Discharge Orders/Prescriptions Prescriptions: No Action atenolol 50 mg tablet 25 mg PO Q24H allopurinol 300 mg tablet 300 mg PO DAILY furosemide 20 mg tablet 20 mg PO DAILY Patient Comments: TAKE ONE TABLET BY MOUTH DAILY NEEDED for leg swelling for 5 days at a time (VIAL) mupirocin 2 % ointment 1 applic topical DAILY PRN omeprazole 40 mg capsule,delayed release(DR/EC) 40 mg PO DAILY metformin 850 MG tablet 850 mg PO BIDCM simvastatin 20 MG tablet 40 mg PO QHS aspirin 81 MG tablet,chewable 81 mg PO DAILY fish oil-dha-epa 1 EACH capsule 1,200 ea PO BID lisinopril 2.5 MG tablet 2.5 mg PO DAILY fluticasone furoate-vilanterol 100-25 mcg/dose blister with device 1 puff IH DAILY PRN (Reason: justina nair) metformin 1,000 mg tablet 500 mg PO DAILY tamsulosin 0.4 mg Capsule 0.4 mg PO DAILY@1730 Qty: 30 2RF midodrine 5 mg Tablet 10 mg PO TIDCM 30 Days Qty: 180 2RF Referrals / Follow Up: Stuart Peña MD [Primary Care Provider] - Disposition Disposition (needs filled in before D/C Order can be placed): Hospice in Medical Facility Charges/Coding Visit Charges Inpatient E&M: 87309 Disch Hosp
== END 2024-11-15 19:10 | disposition hospice, inpatient (51) | DRG 871 ==
LOC: ED 15:19 → ICU 17:52
PROVIDERS: Family Medicine; Hospitalist; Nurse Practitioner Adult Health; Admitting Provider Internal Medicine; Emergency Provider Emergency Medicine; PCP Internal Medicine; Visit Provider Internal Medicine
DX: A41.9 Sepsis, unspecified organism (principal); G93.41 Metabolic encephalopathy; N17.0 Acute kidney failure with tubular necrosis; R65.21 Severe sepsis with septic shock; E87.20 Acidosis, unspecified; N39.0 Urinary tract infection, site not specified; D69.6 Thrombocytopenia, unspecified; E11.65 Type 2 diabetes mellitus with hyperglycemia; D64.9 Anemia, unspecified; I48.91 Unspecified atrial fibrillation; E83.51 Hypocalcemia; E86.0 Dehydration; I10 Essential (primary) hypertension; E83.42 Hypomagnesemia; M10.9 Gout, unspecified; K21.9 Gastro-esophageal reflux disease without esophagitis; E87.5 Hyperkalemia; I95.9 Hypotension, unspecified; R62.7 Adult failure to thrive; Z79.82 Long term (current) use of aspirin; Z87.891 Personal history of nicotine dependence; Z79.84 Long term (current) use of oral hypoglycemic drugs; Z79.899 Other long term (current) drug therapy; R79.89 Other specified abnormal findings of blood chemistry; R34 Anuria and oliguria; Z96.611 Presence of right artificial shoulder joint
CPT/HCPCS: 36415; 36600; 51702; 71045; 80048; 80076; 80202; 80307; 81001; 82077; 82330; 82803; 82962; 83605; 83735; 83880; 84100; 84443; 84484; 85025; 85027; 85610; 85730; 87040; 87077; 87086; 87088; 87186; 87631; 87633; 93005; 94640; 94668; 94762; 97803; 99285; A4216; C1751; J0612